=== PATIENT | female | born 1955 | race Caucasian/White ===

== ENCOUNTER 2020-03-07 06:46 | Outpatient (NON) | payer MEDICARE, MEDICAID, SELFPAY ==
[2020-03-07 23:07] LABS: SARS-CoV-2 RNA PCR Positive
== END 2020-03-07 06:47 ==
PROVIDERS: Visit Provider Physician Assistant
DX: U07.1 COVID-19 (principal)
CPT/HCPCS: 87635; C9803; U0003

== ENCOUNTER 2020-03-13 16:27 | Inpatient (IN) | payer MEDICARE, MEDICAID, SELFPAY ==
--- NOTE | ~2020-03-13 | XR_ITS ---
EXAMINATION: XR chest 1V portable EXAM DATE: 03/22/2020 06:29 INDICATION: Respiratory failure. TECHNIQUE: Portable AP frontal chest x-ray was obtained. Comparison is made to prior examination from 03/21, 03/20, 03/19. FINDINGS: There is a right-sided PICC line with tip projecting over the cavoatrial junction. Endotrac heal tube tip is 2-3 centimeters above the terrance (ideal range is between 2 to 5 cm). There is a dolores ogastric tube seen with tip collimated off the study, but below the left hemidiaphragm. Patchy bilateral ill-defined acute airspace disease, with some confluence in the retrocardiac region. There are no sizable pleural effusions. There is no pneumothorax suspected. Cardiomediastinal s ilhouette is normal. The bones and soft tissues are unremarkable. Previously seen PICC line tenting cephalad has resolved, otherwise there is no significant interval change. IMPRESSION: 1. Line, tubes in position. 2. Bilateral acute edema or infection. Reviewed, dictated and finalized at location A.
--- NOTE | ~2020-03-13 | XR_ITS ---
EXAMINATION: XR chest 1V portable DATE: 03/14/2020 07:09 INDICATION: COVID-19 pneumonia. TECHNIQUE: A single frontal view of the chest was obtained. COMPARISON: Chest single view 03/13/2020, CT abdomen and pelvis 03/24/2019 FINDINGS: There are patchy airspace opacities in all lung zones bilaterally. No pleural effusion or p neumothorax. The heart size is normal. Surgical clips in the right upper quadrant are likely from cho lecystectomy. IMPRESSION: 1. Worsened diffuse lung disease, consistent with pneumonia. Reviewed, dictated and finalized at location A.
--- NOTE | ~2020-03-13 | XR_ITS ---
EXAMINATION: XR chest 1V portable DATE: 03/17/2020 06:05 INDICATION: Respiratory failure. COVID-19 pneumonia. TECHNIQUE: A single frontal view of the chest was obtained. COMPARISON: Chest single view 03/16/2020 FINDINGS: There are interstitial and airspace opacities throughout the lungs bilaterally. No pleural effusion or pneumothorax. The heart size is normal. The endotracheal tube tip is 3.1 cm above the car sebastian. The nasogastric tube tip is in the stomach. Surgical clips in the right upper quadrant are likel y from cholecystectomy. IMPRESSION: 1. Stable diffuse lung disease, consistent with pneumonia versus acute respiratory distress syndrome (ARDS). Reviewed, dictated and finalized at location A. IMPRESSION: 1. Stable diffuse lung disease, consistent with pneumonia versus acute respirat ory distress syndrome (ARDS).
--- NOTE | ~2020-03-13 | XR_ITS ---
EXAMINATION: XR chest 1V portable EXAM DATE: 03/20/2020 05:27 INDICATION: Respiratory failure. TECHNIQUE: Portable AP frontal chest x-ray was obtained. Comparison is made to prior examination from 03/19/2020. FINDINGS: Endotracheal tube tip is 2-3 centimeters above the terrance (ideal range is between 2 to 5 cm ). There is a nasogastric tube seen with tip collimated off the study, but below the left hemidiaphr agm. There is a right-sided PICC line in position. Patchy bilateral ill-defined acute airspace disease. There are no sizable pleural effusions. There is no pneumothorax suspected. Cardiomediastinal silhouette is normal. The bones and soft tissues are unremarkable. Amount of right ankle opacification appears improved compared to yesterday, could b e partly technical from better inspiration on this exam. IMPRESSION: 1. Line(s) and tube(s) in position. 2. Bilateral acute edema or infection. Reviewed, dictated and finalized at location B.
--- NOTE | ~2020-03-13 | XR_ITS ---
EXAMINATION: XR chest 1V portable INDICATION: Respiratory failure TECHNIQUE: Portable AP chest at 0536 hours COMPARISON: 03/17/2020 FINDINGS: The endotracheal tube ends approximately 3.0 cm above the terrance. The nasogastric tube is f ollowed as far as the stomach. Its tip is beyond the inferior margin of the radiograph. Diffuse bilat eral interstitial and airspace opacities persist with slight worsening in the right upper lung zone. There is no pleural effusion or pneumothorax. The cardiomediastinal silhouette is normal. Surgical cl ips in the right upper quadrant are likely from prior cholecystectomy. IMPRESSION: 1. Diffuse lung disease with slight worsening in the right upper lung zone, consistent with pneumonia and/or pulmonary edema and/or acute respiratory distress syndrome (ARDS). Reviewed, dictated and finalized at location A. IMPRESSION: 1. Diffuse lung disease with slight worsening in the right upper lung zone, con sistent with pneumonia and/or pulmonary edema and/or acute respiratory distress syndrome (ARDS).
--- NOTE | ~2020-03-13 | XR_ITS ---
EXAMINATION: XR chest 1V portable EXAM DATE: 03/21/2020 06:01 INDICATION: Respiratory failure. TECHNIQUE: Portable AP frontal chest x-ray was obtained. Comparison is made to prior examination from 03/20/2020, 03/19. FINDINGS: Compared to yesterday, the right-sided PICC line has tented up into the internal jugular ve in, with tip retracting above the level of the terrance. Endotracheal tube tip is 2-3 centimeters above the terrance (ideal range is between 2 to 5 cm). There is a nasogastric tube seen with tip collimated off the study, but below the left hemidiaphragm. Patchy bilateral ill-defined acute airspace disease. There are no sizable pleural effusions. There is no pneumothorax suspected. Cardiomediastinal silhouette is normal. The bones and soft tissues are unremarkable. Amount of parenchymal opacification appears improved compared to last couple of day s. IMPRESSION: 1. Right PICC line tenting cephalad with tip oriented in down the SVC but retracted to above level o f terrance. Consider vascular access consult, evaluation. 2. Bilateral acute edema or infection. Reviewed, dictated and finalized at location A. IMPRESSION: 1. Right PICC line tenting cephalad with tip oriented in down the SVC but retr acted to above level of terrance. Consider vascular access consult, evaluation. 2. Bilateral acute edema or infection.
--- NOTE | ~2020-03-13 | XR_ITS ---
EXAMINATION: XR chest ET placement, XR abdomen NG/feed tube insert DATE: 03/15/2020 18:47 INDICATION: Intubation and orogastric tube placement TECHNIQUE: 1. frontal view of the chest was obtained. 2. Semierect AP view of the abdomen was obtained. COMPARISON: Chest radiograph dated 03/15/2020 at 5:34 AM FINDINGS: Endotracheal tube tip 1.8 cm above the terrance. Orogastric tube with proximal side-port in the body of the stomach and distal tip collimated beyond the inferior margin of the [id number]. No significant interval change accounting for differences in technique in patchy airspace opacities t hroughout both lungs. No pleural effusion or pneumothorax. The cardiomediastinal silhouette is normal . Cholecystectomy clips in the right upper quadrant. IMPRESSION: 1. Endotracheal tube and orogastric tube in expected positions. 2. Diffuse bilateral lung disease without significant interval change consistent with pneumonia. Reviewed, dictated and finalized at location A. IMPRESSION: 1. Endotracheal tube and orogastric tube in expected positions. 2. Diffuse bilateral lung disease without significant interval change consisten t with pneumonia.
--- NOTE | ~2020-03-13 | XR_ITS ---
EXAMINATION: XR chest 1V portable INDICATION: Pneumonia, shortness of breath TECHNIQUE: Portable AP chest at 0536 hours COMPARISON: 03/30/2020 FINDINGS: Diffuse patchy airspace opacities persist with slight improvement in the left lung base. Th ere is no pleural effusion or pneumothorax. The cardiomediastinal silhouette is normal. A right upper extremity PICC ends with its tip at the superior cavoatrial junction. IMPRESSION: 1. Diffuse lung disease with improvement in the left lung base, consistent with pneumonia and/or pulm onary edema and/or acute respiratory distress syndrome (ARDS). Reviewed, dictated and finalized at location A. IMPRESSION: 1. Diffuse lung disease with improvement in the left lung base, consistent with pneumonia and/or pulmonary edema and/or acute respiratory distress syndrome (A RDS).
--- NOTE | ~2020-03-13 | XR_ITS ---
EXAMINATION: XR chest 1V portable INDICATION: Respiratory failure TECHNIQUE: Portable AP chest at 0537 hours COMPARISON: 03/18/2020 FINDINGS: The endotracheal tube ends approximately 2.9 cm above the terrance. The nasogastric tube is f ollowed as far as the stomach. Its tip is beyond the inferior margin of the radiograph. A right upper extremity PICC partially coils in the right internal jugular vein and now ends with its tip in the p roximal superior vena cava. Patchy bilateral interstitial and airspace opacities are stable. There is no pleural effusion or pneumothorax. The cardiomediastinal silhouette is stable. Surgical clips in t he right upper quadrant are likely from prior cholecystectomy. IMPRESSION: 1. Stable diffuse lung disease, consistent with pneumonia and/or pulmonary edema and/or acute respira tory distress syndrome (ARDS). 2. Right upper extremity PICC partially coiling in the the right internal jugular vein and ending wit h its tip in the proximal superior vena cava. Reviewed, dictated and finalized at location A. IMPRESSION: 1. Stable diffuse lung disease, consistent with pneumonia and/or pulmonary kathy a and/or acute respiratory distress syndrome (ARDS). 2. Right upper extremity PICC partially coiling in the the right internal jugul ar vein and ending with its tip in the proximal superior vena cava.
--- NOTE | ~2020-03-13 | XR_ITS ---
EXAMINATION: XR chest PICC line INDICATION: PICC insertion TECHNIQUE: Portable AP chest at 1333 hours COMPARISON: 0536 hours FINDINGS: A right upper extremity PICC has been inserted which ends with its tip at the superior cavo atrial junction. The endotracheal tube is approximately 2.8 cm above the terrance. The nasogastric tube is followed as far as the stomach. Its tip is beyond the inferior margin of the radiograph. Patchy b ilateral interstitial and airspace opacities persist without significant change. There is no pleural effusion or pneumothorax. The cardiomediastinal silhouette is stable. IMPRESSION: 1. Right upper extremity PICC insertion ending at the superior cavoatrial junction. 2. Stable diffuse lung disease, consistent with pneumonia and/or pulmonary edema and/or acute respira tory distress syndrome (ARDS). Reviewed, dictated and finalized at location A. IMPRESSION: 1. Right upper extremity PICC insertion ending at the superior cavoatrial junct ion. 2. Stable diffuse lung disease, consistent with pneumonia and/or pulmonary kathy a and/or acute respiratory distress syndrome (ARDS).
--- NOTE | ~2020-03-13 | XR_ITS ---
EXAMINATION: XR chest 1V portable DATE: 03/22/2020 09:12 INDICATION: COVID 19 infection. Acute respiratory failure and shortness of breath. TECHNIQUE: frontal view of the chest was obtained. COMPARISON: Chest radiograph dated 03/22/2020 at 5:32 AM FINDINGS: Endotracheal tube tip 2.5 cm above the terrance. Nasogastric tube with proximal side-port in the body of the stomach and with distal tip collimated off the study. Right upper extremity peripherally inser noble central venous catheter (PICC) has changed position, now extending cephalad along the right inter nal jugular vein with distal tip collimated beyond the cephalad margin of the [id number]. Improved aeration at the left lung base. Persistent bilateral patchy airspace disease consistent with multifocal pneumonia. No pleural effusion or pneumothorax. The cardiomediastinal silhouette is deshawn l. Cholecystectomy clips in the right upper quadrant. IMPRESSION: 1. Right upper extremity PICC line has changed position, now extending into the right internal jugula r vein with distal tip collimated beyond the cephalad margin of the [id number]. 2. Bilateral patchy airspace opacities throughout both lungs consistent with multifocal pneumonia wit h improved aeration at the left lung base. Reviewed, dictated and finalized at location A. IMPRESSION: 1. Right upper extremity PICC line has changed position, now extending into the right internal jugular vein with distal tip collimated beyond the cephalad mar gin of the [id number]. 2. Bilateral patchy airspace opacities throughout both lungs consistent with mu ltifocal pneumonia with improved aeration at the left lung base.
--- NOTE | ~2020-03-13 | XR_ITS ---
EXAMINATION: XR chest 1V portable EXAM DATE: 03/24/2020 08:04 INDICATION: Respiratory failure. COVID 19 pneumonia. TECHNIQUE: Portable AP frontal chest x-ray was obtained. Comparison is made to prior examination from 03/23. FINDINGS: There is a right-sided PICC line with tip projecting over the cavoatrial junction. Endotrac heal tube tip is 2 centimeters above the terrance (ideal range is between 2 to 5 cm). There is a nasog astric tube seen with tip collimated off the study, but below the left hemidiaphragm. Patchy bilateral ill-defined acute airspace disease. There are no sizable pleural effusions. There is no pneumothorax suspected. Cardiomediastinal silhouette is normal. The bones and soft tissues are unremarkable. There is no significant interval change. IMPRESSION: 1. Line, tubes in position. 2. Bilateral acute edema or infection. Reviewed, dictated and finalized at location A.
--- NOTE | ~2020-03-13 | XR_ITS ---
EXAMINATION: XR chest 1V portable EXAM DATE: XR chest 1V portable EXAM DATE: 03/23/2020 05:45 INDICATION: Respiratory failure. TECHNIQUE: Portable AP frontal chest x-ray was obtained. Comparison is made to prior examination from 03/21, 03/22 FINDINGS: Endotracheal tube tip is 2 centimeters above the terrance (ideal range is between 2 to 5 cm). There is a nasogastric tube seen with tip collimated off the study, but below the left hemidiaphrag m. Patchy bilateral ill-defined acute airspace disease, with some confluence in the retrocardiac region. There are no sizable pleural effusions. There is no pneumothorax suspected. Cardiomediastinal s ilhouette is normal. The bones and soft tissues are unremarkable. Previously seen PICC line has been removed, otherwise no appreciable interval change. IMPRESSION: 1. Line, tubes in position. 2. Bilateral acute edema or infection. Reviewed, dictated and finalized at location A.
--- NOTE | ~2020-03-13 | XR_ITS ---
EXAMINATION: XR chest 1V portable DATE: 03/16/2020 06:35 INDICATION: Respiratory failure. COVID-19 pneumonia. TECHNIQUE: A single frontal view of the chest was obtained. COMPARISON: Chest single view 03/15/2020 FINDINGS: There are patchy airspace opacities involving all lung zones bilaterally. No pleural effusi on or pneumothorax. The heart size is normal. The endotracheal tube tip is 2.4 cm above the terrance. T he nasogastric tube tip is beyond the inferior margin of the radiograph, but at least to the stomach. Surgical clips in the right upper quadrant are likely from cholecystectomy. IMPRESSION: 1. Worsened diffuse lung disease, consistent with pneumonia. Reviewed, dictated and finalized at location A.
--- NOTE | ~2020-03-13 | XR_ITS ---
EXAMINATION: XR chest 1V portable DATE: 03/30/2020 11:08 INDICATION: Acute respiratory failure. COVID-19 pneumonia. TECHNIQUE: A single frontal view of the chest was obtained. COMPARISON: Chest single view 03/25/2020, CT abdomen and pelvis 03/24/2019 FINDINGS: There are patchy airspace opacities involving all lung zones bilaterally. No pleural effusi on or pneumothorax. The heart size is normal. A right upper extremity peripherally inserted central v enous catheter (PICC) is seen with tip at the superior cavoatrial junction. IMPRESSION: 1. Diffuse lung disease with mild improvement, consistent with pneumonia versus acute respiratory dis tress syndrome (ARDS). Reviewed, dictated and finalized at location A. IMPRESSION: 1. Diffuse lung disease with mild improvement, consistent with pneumonia versus acute respiratory distress syndrome (ARDS).
--- NOTE | ~2020-03-13 | CT_ITS ---
EXAMINATION: CT brain wo con DATE: 03/19/2020 14:58 INDICATION: Encephalopathy TECHNIQUE: Computed tomography (CT) of the head was performed without intravenous contrast. Sagittal and coronal reconstructions were performed. The mA was adjusted according to patient size. Iterative reconstruction technique was employed. The dose-length product was 605.33 mGy-cm. COMPARISON: None FINDINGS: No acute intracranial hemorrhage, acute infarction or abnormal extra axial fluid collection. There is mild scattered white matter hypoattenuation consistent with chronic small vessel ischemic disease. S ymmetric prominence of the sulci and ventricles consistent with mild age-appropriate diffuse cerebral volume loss. Ventricles are normal and symmetric. No mass/mass effect. Endotracheal and orogastric tubes extend into the pharynx. Mild mucosal thickening the bilateral ethmoid sinuses. Trace bilateral mastoid effusions. The orbits are normal. IMPRESSION: 1. No acute intracranial process. 2. Age-related changes including mild diffuse lung loss and mild scattered white matter hypoattenuati on consistent with chronic small vessel ischemic disease. Reviewed, dictated and finalized at location A. IMPRESSION: 1. No acute intracranial process. 2. Age-related changes including mild diffuse lung loss and mild scattered whit e matter hypoattenuation consistent with chronic small vessel ischemic disease.
--- NOTE | ~2020-03-13 | US_ITS ---
EXAMINATION: US venous doppler [facility] DATE: 03/22/2020 10:41 INDICATION: Acute respiratory failure. TECHNIQUE: Grayscale ultrasound images without and with compression and Doppler ultrasound images of the bilateral lower extremity veins were obtained. COMPARISON: None. FINDINGS: The visualized portions of right common femoral vein, profunda (deep) femoral vein, femoral vein, pop liteal vein, peroneal veins, posterior tibial veins, and greater saphenous vein outflow are patent. The visualized portions of left common femoral vein, profunda femoral vein, femoral vein, popliteal v ein, peroneal veins, posterior tibial veins, and greater saphenous vein outflow are patent. IMPRESSION: 1. No deep venous thrombosis. Reviewed, dictated and finalized at location B.
--- NOTE | ~2020-03-13 | XR_ITS ---
EXAMINATION: XR chest 1V portable EXAM DATE: 03/16/2020 16:30 INDICATION: Decreasing saturation. TECHNIQUE: Portable AP frontal chest x-ray was obtained. Comparison is made to prior examination from 03/16/2020. FINDINGS: Endotracheal tube tip is 3 centimeters above the terrance (ideal range is between 2 to 5 cm). Feeding tube tip is adequately positioned. Again there is moderate amount of right-sided, smaller a mount of left-sided airspace disease. There is no pneumothorax suspected. There are no pleural effusi ons. Cardiomediastinal silhouette is normal. There are no osseous abnormalities identified. Accountin g for differences in technique, there is no significant interval change. IMPRESSION: Tubes in position. Moderate right, smaller left acute airspace disease. Reviewed, dictated and finalized at location B. IMPRESSION: Tubes in position. Moderate right, smaller left acute airspace dise ase.
--- NOTE | ~2020-03-13 | XR_ITS ---
EXAMINATION: XR chest 1V portable INDICATION: Shortness of breath, fever, dry cough TECHNIQUE: Portable AP chest at 1708 hours COMPARISON: 10/02/2016 FINDINGS: There are patchy bilateral airspace opacities. No pleural effusion or pneumothorax is ident ified. The cardiomediastinal silhouette is normal. Cholecystectomy clips are noted in the right upper quadrant. IMPRESSION: 1. Patchy bilateral airspace opacities, consistent with atelectasis versus pneumonia. Reviewed, dictated and finalized at location A. IMPRESSION: 1. Patchy bilateral airspace opacities, consistent with atelectasis versus pneu monia.
--- NOTE | ~2020-03-13 | XR_ITS ---
EXAMINATION: XR chest 1V portable DATE: 03/25/2020 06:44 INDICATION: COVID 19 pneumonia TECHNIQUE: frontal view of the chest was obtained. COMPARISON: Chest radiograph dated 03/24/20 FINDINGS: Endotracheal tube tip 1.9 cm above the terrance. Right upper extremity peripherally inserted central ve nous catheter (PICC) tip at the superior vena cava. Nasogastric tube extends below the left hemidia phragm with distal tip collimated off the study. No significant interval change in patchy bilateral airspace opacities. Small left pleural effusion. N o pneumothorax. The cardiomediastinal silhouette is normal. Cholecystectomy clips in the right upper quadrant. IMPRESSION: 1. Patchy bilateral lung disease consistent with multifocal pneumonia and/or pulmonary edema. 2. Small left pleural effusion. Reviewed, dictated and finalized at location A. IMPRESSION: 1. Patchy bilateral lung disease consistent with multifocal pneumonia and/or pu lmonary edema. 2. Small left pleural effusion.
--- NOTE | ~2020-03-13 | XR_ITS ---
EXAMINATION: XR chest 1V portable DATE: 03/15/2020 06:13 INDICATION: COVID-19 pneumonia. TECHNIQUE: A single frontal view of the chest was obtained. COMPARISON: Chest single view 03/14/2020 FINDINGS: There are patchy airspace opacities in all lung zones bilaterally. No pleural effusion or p neumothorax. The heart size is normal. Surgical clips in the right upper quadrant are likely from cho lecystectomy. IMPRESSION: 1. Diffuse lung disease with worsening on the left and improvement in right lower lung zone, consiste nt with pneumonia. Reviewed, dictated and finalized at location A. IMPRESSION: 1. Diffuse lung disease with worsening on the left and improvement in right low er lung zone, consistent with pneumonia.
[2020-03-13 16:33] VITALS: BP 132/78; PULSE 103; RESP 20; TEMP 36.7; O2SAT 90
[2020-03-13 16:40] VITALS: O2SAT 70
--- NOTE | 2020-03-13 16:45 | ECG_ITS ---
Measurements Intervals [place] Rate: 101 P: 14 MI: 137 QRS: 54 QRSD: 83 T: 19 QT: 337 QTc: 438 Interpretive Statements SINUS TACHYCARDIA INCOMPLETE RIGHT BUNDLE BRANCH BLOCK NONSPECIFIC ST & T-WAVE ABNORMALITY- INFERIOR LEADS BASELINE ARTIFACT- I, II, III, AVR, AVF, V3-V5 BORDERLINE ECG Electronically Signed On 03-13-2020 17:21:01 CDT by Nicko Lake D.O.
--- NOTE | 2020-03-13 16:49 | ED.GENADULT ---
HPI - General Adult General Chief complaint: Shortness of Breath/Dyspnea Stated complaint: SOB, COVID Time Seen by Provider: 03/13/20 16:29 Source: patient History of Present Illness HPI narrative: Patient is a 64 y/o female complaining of moderate SOB for several days. There is no alleviating or exacerbating factor. She has been sick with bodyache, fever, weakness for several days and she tested positive for COVID on 03/07. She states that her symptoms have been worse last few days. She feels very weak and cannot walk. She states that her fever has been upto 104 a few days ago, but has no fever today. Of note, nurse reports that sat was 60s to 70s on RA while in triage. She was placed on 6L O2 via NC. Related Data Home Medications Medication Instructions Recorded Confirmed cholecalciferol (vitamin D3) 50 2,000 unit PO DAILY 08/25/19 mcg (2,000 unit) tablet dalfampridine 10 mg 10 mg PO DAILY tablet 08/25/19 tablet,extended release,12 hr levothyroxine 100 mcg tablet 100 mcg PO DAILY 08/25/19 solifenacin 5 mg tablet 5 mg PO DAILY 08/25/19 Allergies Allergy/AdvReac Type Severity Reaction Status Date / Time Sulfa (Sulfonamide Allergy Unknown possible Verified 12/08/19 14:02 Antibiotics) reaction?? Review of Systems Constitutional: Constitutional: Reports body ache(s), Reports chills, Reports fever(s), Denies headache(s), Reports malaise and Reports weakness Eyes: Eyes: Denies blurry vision ENT: Denies headache(s) and Denies neck pain Cardiovascular: Cardiovascular: Denies chest pain and Reports dyspnea Respiratory: Respiratory: Reports dyspnea Gastrointestinal: Gastrointestinal: Denies abdominal pain, Denies diarrhea, Denies nausea and Denies vomiting Genitourinary: Genitourinary: Denies hematuria and Denies dysuria Musculoskeletal: Musculoskeletal: Denies back pain and Denies neck pain Neurologic: Denies headache(s) and Reports weakness PMFSH Past Medical History Medical History COVID-19 Family History Family History Other Family history of multiple sclerosis Social History Social History Smoking status: Current every day smoker Alcohol intake: current Exam Const: General: no acute distress and well developed Orientation/consciousness: oriented to person, oriented to place, oriented to time and patient oriented x3 HENMT: Head: normocephalic Ears: external ears normal General nose exam: Normal external nose present Eyes: General: appearance normal, both eyes and all related structures Conjunctivae: conjunctivae normal Neck: Neck: normal visual inspection and full ROM Chest: Chest palpation & inspection: normal inspection of the chest and no tenderness Resp: Effort & Inspection: normal respiratory effort and able to speak in complete sentences Cardio: Rate: tachycardic Rhythm: regular rhythm GI: GI Palp: No abdominal tenderness and Yes Soft to palpation Skin: General skin exam: normal color and turgor normal Neuro: General: oriented to person, oriented to place, oriented to time and patient oriented x3 Cognition (Neuro): normal cognition Extrem: General: normal to inspection, full ROM and no pedal edema Psych: Appearance: grossly normal Mental Status: mental status grossly normal Affect: normal affect Course Consultations Consultation #1: Discussed with Dr. Bailey, who agrees to admit. Date: 03/13/20 Time: 19:40 Vital Signs Vital signs: Vital Signs Temperature 36.7 C 03/13/20 16:33 Pulse Rate 103 H 03/13/20 16:33 Respiratory Rate 20 03/13/20 16:33 Blood Pressure 132/78 03/13/20 16:33 Pulse Oximetry 90 03/13/20 16:33 Temperature 36.7 C 03/13/20 16:33 Pulse Rate 77 03/13/20 20:11 Respiratory Rate 18 03/13/20 20:11 Blood Pressure 112/78 03/13/20 20:11 Pulse Oximetry 98 08
[2020-03-13 17:02] LABS: Alveolar/Arterial O2 Gradient 218.2 mmHg; Base Excess ABG 2.1 mEq/l (+/-2.0); Fractional Inspired Oxygen 44 %; HCO3 ABG 25.3 mEq/l (22.0-26.0); Oxygen Saturation ABG 91.3 % (95.0-100.0); PCO2 ABG 34.8 mmHg (35.0-45.0); PO2 ABG 55.9 mmHg (80.0-100.0); PO2 FiO2 Ratio Arterial Blood 1.27 %; Total Hemoglobin 13.6 g/dL (12.0-18.0); pH ABG 7.479 (7.350-7.450)
[2020-03-13 17:03] LABS: Device NASAL CANNULA; Modified Allen's Test Pass; Site Drawn RIGHT RADIAL
[2020-03-13 17:27] LABS: Basophils Percent Auto 0.2 % (0.2-1.2); Hematocrit 43.8 % (37.0-47.0); Hemoglobin 14.4 g/dL (12.0-15.0); Immature Granulocyte Absolute 0.12 K/mm3 (0.00-0.031); Immature Granulocyte Percent A 1.1 % (0-0.5); Lymphocytes Absolute Auto 0.95 K/mm3 (0.9-3.2); Lymphocytes Percent Auto 8.6 % (18.3-44.2); Mean Corpuscular HGB Conc 32.9 g/dl (32-36); Mean Corpuscular Hemoglobin 29.9 pg (26-34); Mean Corpuscular Volume 90.9 fl (80-100); Mean Platelet Volume 10.3 fl (7.4-10.4); Monocytes Absolute Auto 0.5 K/mm3 (0.1-0.6); Monocytes Percent Auto 4.1 % (2.6-8.5); Neutrophils Absolute Auto 9.6 K/mm3 (1.3-6.7); Platelet Count Result 277 k/mm3 (150-375); Red Blood Count 4.82 M/mm3 (4.2-5.4); White Blood Count 11.1 K/mm3 (4.5-10.0)
[2020-03-13 17:42] LABS: Partial Thromboplastin Time 24.6 SECONDS (22.3-36.8); Prothrombin Time 13.1 Seconds (11.1-14.7)
[2020-03-13 17:44] LABS: Alanine Aminotransferase 51 U/L (4-35); Albumin Level 4.1 g/dL (3.5-5.1); Alkaline Phosphatase 72 U/L (38-126); Anion Gap 11 mmol/L (8-16); Aspartate Amino Transferase 109 U/L (14-36); Bilirubin,Total 0.4 mg/dL (0.2-1.3); Blood Urea Nitrogen 35 mg/dL (7-17); CRP 5.5 mg/dL (<1.0); Calcium 8.8 mg/dL (8.4-10.2); Carbon Dioxide 26 mmol/L (22-30); Chloride 104 mmol/L (98-107); Estimated CRCL calculation 52 ml/min; Estimated Glomerular Filt Rate > 60; Glucose 120 mg/dL (65-105); Potassium 3.7 mmol/L (3.4-5.0); Sodium 141 mmol/L (137-145)
[2020-03-13 17:51] LABS: Troponin I < 0.012 ng/mL (0.000-0.034)
--- NOTE | 2020-03-13 18:19 | PC.NURSE ---
was unable to draw blood cultures asked nurse
[2020-03-13 18:23] VITALS: BP 110/38; PULSE 82; RESP 20; O2SAT 95
--- NOTE | 2020-03-13 18:44 | PC.NURSE ---
left message with person listed on emergency contact list to pick patient up from er. no answer. patient unable to provide another contact to call for ride home
[2020-03-13 20:11] VITALS: BP 112/78; PULSE 77; RESP 18; O2SAT 98
[2020-03-13] MEDS: REMDESIVIR 200 MG/NS 250 ML 200 MG/250 ML BAG 250 MG IVPB (20:11)
[2020-03-13 20:29] LABS: Troponin I < 0.012 ng/mL (0.000-0.034)
[2020-03-13 20:58] VITALS: BP 125/56; PULSE 71; RESP 18; TEMP 36.7; O2SAT 90; BMI 26.3
--- NOTE | 2020-03-13 21:07 | ADMGEN ---
This patient, Raquel Harper, was admitted to 3 Med Surg Room 331-01. Patient/family oriented to hospital policies and general routines including ID bracelet, bed and alarms, visiting hours, pain management, procedures, bathroom and other care routines, personal items, smoking policy, room service/diet, and visiting hours. Valuables list has been completed. Information on how to activate the Rapid Response Team has been discussed. Patient/Family are encouraged to report perceived risks to care and to ask questions if they do not understand what they are told or what they should do.
[2020-03-13 23:23] LABS: Troponin I < 0.012 ng/mL (0.000-0.034)
--- NOTE | 2020-03-13 23:46 | PM.IMHP ---
H&P: HPI History of Present Illness Date/Time: 03/13/20 23:46 Chief complaint: acute respiratory failure/covid infection Narrative: aRquel Harper is a 64 year old female who has a history of MS. The patient's had back surgery recently and he was tested for COVID prior to his surgery but after surgery he started feeling ill and was coughing severely. He then tested positive for COVID. The patient felt very weak and she went and got tested she said her fever was maximum 104.0. On 03/04/2011 she was tested positive for COVID. The patient has MS and has been very weak. She said she has not taken any of her medications today. She has not been able to walk. Her oxygen his level is 60s 70s on room air. The patient was placed on 6 L initially but is down to 5 L per nasal cannula. Was read as incomplete right bundle branch block. Chest x-ray was read as patchy bilateral airspace opacities, consistent with atelectasis versus pneumonia. Patient was started on Decadron and from the severe. Patient was started on room does of year and Decadron. Assessment approximately 45 minutes with the patient. She was placed in isolation. Date of service 03/13/2020 Review of Systems Review of Systems: All systems reviewed & are unremarkable except as noted in HPI and below Constitutional: Constitutional: Reports as per HPI and Reports no additional constitutional complaints Eyes: Eyes: Reports as per HPI and Reports no additional eye complaints ENT: Reports system reviewed and no additional complaints, except as documented and Reports Normal hearing present Cardiovascular: Cardiovascular: Reports no additional cardiovascular complaints Respiratory: Respiratory: Reports no additional respiratory complaints and Reports no additional respiratory complaints Gastrointestinal: Gastrointestinal: Reports as per HPI and Reports no additional gastrointestinal complaints Musculoskeletal: Musculoskeletal: Reports no additional musculoskeletal complaints Integumentary/Breasts: Skin/Breast: Reports system reviewed and no additional complaints, except as docu and Reports as per HPI Neurologic: Reports system reviewed and no additional complaints, except as documented, Reports as per HPI and Reports Normal hearing present Psychiatric: Psychiatric: Reports no additional psychiatric complaints and Reports as per HPI Endocrine: Endocrine: Reports no additional endocrine complaints Hematologic/Lymphatic: Hematologic/Lymphatic: Reports no additional hematologic/lymphatic complaints Allergic/Immunologic: Allergic/Immunologic: Reports no additional allergic/immunologic complaints [facility] Past Medical History Medical History (Updated 03/14/20 @ 00:00 by Yessica Elder NP) COVID-19 Depression Encounter for removal of skin lesion Multiple sclerosis Overactive bladder Psoriasis Surgical History Surgical History (Updated 03/14/20 @ 00:00 by Yessica Elder NP) H/O partial thyroidectomy H/O: hysterectomy History of tonsillectomy Hx of cholecystectomy Family History Family History (Updated 03/14/20 @ 00:00 by Yessica Elder NP) Father Bladder cancer Other Family history of multiple sclerosis Social History Social History (Updated 03/14/20 @ 00:02 by Yessica Elder NP) Social History: Patient lives with her who is a durable power nut tapper for healthcare. The patient is a full code. She has 2 children. The patient used to smoke many years ago. No marijuana or street drugs. No alcohol. She is disabled. Smoking status: Former smoker Alcohol intake: never Substance use: never Gender identity (if verbalized by the patient): Female Sexual Orientation (if Verbalized by the Patient): Straight or Heterosexual Spiritual care concerns: No Meds Home Medications and Allergies Home Medications Medication Instructions Recorded Confirmed Type cholecalciferol (vitamin D3) 50 2,000 unit PO DAILY 08/25/19
[2020-03-14] VITALS (21 sets, daily range): BP systolic 109–129; BP diastolic 48–71; PULSE 59–85; RESP 16–29; TEMP 37.1–37.3; O2SAT 82–98
[2020-03-14] MEDS: LEVOTHYROXINE SODIUM 100 MCG TABLET PO (05:39)
[2020-03-14 06:07] LABS: Alveolar/Arterial O2 Gradient 341.8 mmHg; Base Excess ABG 2.3 mEq/l (+/-2.0); Fractional Inspired Oxygen 60 %; HCO3 ABG 25.4 mEq/l (22.0-26.0); Oxygen Content ABG 15.3 %vol (16.0-22.0); Oxygen Saturation ABG 87.5 % (95.0-100.0); Oxyhemoglobin 84.3 % THb (90.0-100.0); PCO2 ABG 34.2 mmHg (35.0-45.0); PO2 FiO2 Ratio Arterial Blood 0.81 %; Total Hemoglobin 12.9 g/dL (12.0-18.0); pH ABG 7.488 (7.350-7.450)
[2020-03-14 06:11] LABS: Device HIGH FLOW THERAPY; Modified Allen's Test Pass; PO2 ABG 48.4 mmHg (80.0-100.0); Site Drawn LEFT RADIAL
[2020-03-14 06:57] LABS: Alanine Aminotransferase 52 U/L (4-35)
--- NOTE | 2020-03-14 06:58 | PC.NURSE ---
Pt transferred to ICU 5 at this time. All personal belongings sent with patient. Report called to Cristal YO.
[2020-03-14 07:52] LABS: Estimated CRCL calculation 65 ml/min; Estimated Glomerular Filt Rate > 60
--- NOTE | 2020-03-14 08:37 | WPDCNINT ---
Assessment and Plan Assessment and plan (1) Acute respiratory failure with hypoxia: Code(s): J96.01 - Acute respiratory failure with hypoxia Status: Acute Assessment and Plan: acute respiratory failure likely secondary to COVID-19 pneumonia - worsening chest x-ray and ABGs this morning, patient transferred to the ICU for further management - currently on high-flow therapy, 90% FiO2 and 60 L flow rate - discussed with patient regarding intubation if necessary to which she is agreeable - may place 100% non-rebreather if O2 sats continue to drop (2) COVID-19 virus infection: Code(s): U07.1 - COVID-19 Status: Acute Assessment and Plan: patient was tested positive for COVID-19 on 03/07/2020 - has been started on dexamethasone and Remdesivir - patient will be a candidate for convalescent plasma, though no significant evidence is present at this time that it works (3) Multiple sclerosis: Code(s): G35 - Multiple sclerosis Status: Chronic Assessment and Plan: continue Dalfampridine, Modafinil (4) HTN (hypertension), benign: Code(s): I10 - Essential (primary) hypertension Status: Acute Assessment and Plan: Blood pressures stable (5) DVT prophylaxis: Code(s): Z29.9 - Encounter for prophylactic measures, unspecified Status: Acute Assessment and Plan: lovenox Additional Plan D/w pt and updated her with her condition and plan of care. Discussed with her regarding intubation if her condition worsen, she is agreeable. Code Status: Full Code Critical care time spent: 44 minutes Due to a high probability of clinically significant, life threatening deterioration, the patient required my highest level of preparedness to intervene emergently and I personally spent this critical care time directly and personally managing the patient. This critical care time included obtaining a history; examining the patient; pulse oximetry; ordering and review of studies; arranging urgent treatment with development of a management plan; evaluation of patient's response to treatment; frequent reassessment; and discussions with other providers. It was exclusive of separately billable procedures and treating other patients and teaching time. Please see Assessment and Plan section and the rest of the note for further information on patient assessment and treatment Lead Mason Tender Consult Note Consult date: 03/14/20 Time Seen: 07:04 Reason for consult: acute respiratory failure, COVID-19 19 pneumonia, fevers, generalized weakness HPI: Raquel Harper is a 64 year old female with past medical history of depression, multiple sclerosis, psoriasis, overactive bladder, history of partial thyroidectomy presented to the ED on 03/13/2020 with complains off worsening shortness of breath, fevers, increased weakness. Patient was tested positive for COVID-19 on 03/07/2020. Her respiratory symptoms have worsened for the last few days which prompted her to come to the ER. She was saturating 60s to 70s on room air in the ER and was placed on supplemental oxygen. Early this morning, patient's oxygen saturation decreased to the 80s and was placed on high-flow therapy and transferred to the ICU for further management. Patient seen and examined the ICU, denies any cough, fevers, nausea, vomiting at this time denies any change in taste or smell. Looks comfortable, currently on high-flow nasal therapy but 90% FiO2 and 60 L flow rate. O2 sats have been low 90s. Hemodynamically stable. Patient has been afebrile Review of Systems Review of Systems: All systems reviewed & are unremarkable except as noted in HPI and below PMFSH Past Medical History Medical History (Updated 03/14/20 @ 09:02 by Pilar Garcia MD) COVID-19 Depression Encounter for removal of skin lesion Multiple sclerosis Overactive bladder Psoriasis Surgical History Surgical History (Updated 03/14/20 @ 00:00 by Jermain
[2020-03-14 10:36] LABS: Basophils Percent Auto 0.2 % (0.2-1.2); Hematocrit 40.8 % (37.0-47.0); Hemoglobin 13.1 g/dL (12.0-15.0); Immature Granulocyte Absolute 0.11 K/mm3 (0.00-0.031); Immature Granulocyte Percent A 1.1 % (0-0.5); Lymphocytes Absolute Auto 0.73 K/mm3 (0.9-3.2); Lymphocytes Percent Auto 7.3 % (18.3-44.2); Mean Corpuscular HGB Conc 32.1 g/dl (32-36); Mean Corpuscular Hemoglobin 29.4 pg (26-34); Mean Corpuscular Volume 91.7 fl (80-100); Mean Platelet Volume 9.6 fl (7.4-10.4); Monocytes Absolute Auto 0.5 K/mm3 (0.1-0.6); Monocytes Percent Auto 4.8 % (2.6-8.5); Neutrophils Absolute Auto 8.7 K/mm3 (1.3-6.7); Neutrophils Percent Auto 86.6 % (45.5-73.1); Platelet Count Result 307 k/mm3 (150-375); Red Blood Count 4.45 M/mm3 (4.2-5.4); Red Cell Distribution Width 12.9 % (11.5-14.5)
[2020-03-14 10:44] LABS: D Dimer 1.25 ug/mL (<0.48)
[2020-03-14 10:48] LABS: Alanine Aminotransferase 57 U/L (4-35); Albumin Level 3.7 g/dL (3.5-5.1); Alkaline Phosphatase 71 U/L (38-126); Anion Gap 7 mmol/L (8-16); Aspartate Amino Transferase 87 U/L (14-36); Bilirubin,Total 0.2 mg/dL (0.2-1.3); Blood Urea Nitrogen 31 mg/dL (7-17); Calcium 8.6 mg/dL (8.4-10.2); Carbon Dioxide 29 mmol/L (22-30); Chloride 107 mmol/L (98-107); Estimated CRCL calculation 65 ml/min; Estimated Glomerular Filt Rate > 60; Glucose 103 mg/dL (65-105); Lactate Dehydrogenase 1430 U/L (313-618); Magnesium 2.3 mg/dL (1.6-2.3); Phosphorus 3.8 mg/dL (2.5-4.5); Sodium 143 mmol/L (137-145)
[2020-03-14 11:02] LABS: CRP 14.3 mg/dL (<1.0)
[2020-03-14] MEDS: CHOLECALCIFEROL 1,000 UNITS TABLET 2000 UNITS PO (11:44)
[2020-03-14] MEDS: SOLIFENACIN 5 MG TABLET PO (11:44)
[2020-03-14] MEDS: CITALOPRAM HYDROBROMIDE 20 MG TABLET 40 MG PO (11:44)
[2020-03-14] MEDS: TRIAMCINOLONE ACET 0.1% CREAM 15 GM TUBE 1 APPLIC TOPICAL ×4 (11:45→20:44)
[2020-03-14] MEDS: ENOXAPARIN 80 MG/0.8 ML SYRINGE 75 MG SUB-Q (11:45)
--- NOTE | 2020-03-14 12:41 | PM.IMPN ---
Progress Note: A&P Assessment and Plan (1) Acute respiratory failure with hypoxia: Code(s): J96.01 - Acute respiratory failure with hypoxia Status: Acute Assessment and Plan: Result of COVID-19 infection. Now in ICU on high-flow oxygen Due to worsening status earlier this morning with chest x-ray revealing worsening airspace opacities and worsening ABG. Appreciate input from team guide. Ventolin HFA as needed. Patient is full code and agreeable to intubation if necessary. Will continue to monitor closely. (2) COVID-19 virus infection: Code(s): U07.1 - COVID-19 Status: Acute Assessment and Plan: Positive COVID-19 testing on 03/07/2020. Known dexamethasone and room does severe. On high-flow oxygen as noted above. Will continue to monitor closely. Follow markers as needed. (3) Multiple sclerosis: Code(s): G35 - Multiple sclerosis Status: Chronic Assessment and Plan: We will continue dalfampridine and modafinil. Anticipate will need therapy once improved from respiratory standpoint. (4) HTN (hypertension), benign: Code(s): I10 - Essential (primary) hypertension Status: Acute Assessment and Plan: Blood pressure reviewed on 03/14/2020 and presently stable. Will continue to monitor. Not on medication at the present time. (5) Depression: Qualifiers: Depression Type: unspecified Qualified Code(s): F32.9 - Major depressive disorder, single episode, unspecified Code(s): F32.9 - Major depressive disorder, single episode, unspecified Status: Chronic Assessment and Plan: Mood presently stable. Will continue citalopram. (6) Hypothyroidism, unspecified: Qualifiers: Hypothyroidism type: unspecified Qualified Code(s): E03.9 - Hypothyroidism, unspecified Code(s): E03.9 - Hypothyroidism, unspecified Status: Chronic Assessment and Plan: Stable. Continue levothyroxine. (7) DVT prophylaxis: Code(s): Z29.9 - Encounter for prophylactic measures, unspecified Status: Acute Assessment and Plan: Lovenox. Time Spent With Patient Time with patient: 15 - 25 minutes Subjective Date/time seen: 03/14/20 12:41 Interval history: Date of Service: 03/14/2020. Admitted with acute respiratory failure, COVID-19 infection. Transferred to ICU earlier this morning due to increased respiratory difficulty. Feels a little better now. Difficult to take deep breath. No cough. No chest pain. No headache or dizziness. No abdominal pain. No nausea or vomiting. Review of Systems Constitutional: Constitutional: Denies chills and Denies fever(s) ENT: Denies nasal congestion and Denies nasal discharge Cardiovascular: Cardiovascular: Denies chest pain and Denies palpitations Respiratory: Respiratory: Denies cough Comments: Hard to take deep breath. Gastrointestinal: Gastrointestinal: Denies abdominal pain, Denies nausea and Denies vomiting Genitourinary: Genitourinary: Reports no additional female genitourinary complaints Musculoskeletal: Musculoskeletal: Reports no additional musculoskeletal complaints Integumentary/Breasts: Skin/Breast: Denies rash Neurologic: Denies headache(s) Psychiatric: Psychiatric: Denies confusion Exam Narrative: Exam Narrative: Awake and alert. Const: General: no acute distress HENMT: Mouth: Yes moist mucous membranes Other: High-flow oxygen in place. Neck: Neck: supple Lymphatic: lymphadenopathy not noted Resp: Auscultation: diminished lung sounds Other: Coarse breath sounds bilaterally. Cardio: Rate: regular rate Rhythm: regular rhythm GI: Inspection: non-distended GI Palp: Yes Soft to palpation and No Tenderness to palpation present (GI) Auscultation: normal bowel sounds Skin: General skin exam: normal color and no rashes or lesions noted Neuro: Cognition (Neuro): normal cognition Speech: normal speech Extrem: General: no ed
[2020-03-14] MEDS: SODIUM CHLORIDE 0.9% IV 1,000 ML 75 ML IV CONT (17:42)
[2020-03-14] MEDS: REMDESIVIR 100 MG/NS 250 ML 100 MG/250 ML BAG 250 MG IVPB (20:44)
[2020-03-15] VITALS (40 sets, daily range): BP systolic 60–157; BP diastolic 49–86; PULSE 57–102; RESP 17–92; TEMP 36.7–38.6; O2SAT 88–100
[2020-03-15 04:52] LABS: Basophils Percent Auto 0.3 % (0.2-1.2); Hematocrit 36.7 % (37.0-47.0); Hemoglobin 11.8 g/dL (12.0-15.0); Immature Granulocyte Absolute 0.12 K/mm3 (0.00-0.031); Immature Granulocyte Percent A 1.5 % (0-0.5); Lymphocytes Absolute Auto 0.69 K/mm3 (0.9-3.2); Lymphocytes Percent Auto 8.6 % (18.3-44.2); Mean Corpuscular HGB Conc 32.2 g/dl (32-36); Mean Corpuscular Hemoglobin 29.5 pg (26-34); Mean Corpuscular Volume 91.8 fl (80-100); Mean Platelet Volume 9.7 fl (7.4-10.4); Monocytes Absolute Auto 0.5 K/mm3 (0.1-0.6); Monocytes Percent Auto 5.8 % (2.6-8.5); Neutrophils Absolute Auto 6.7 K/mm3 (1.3-6.7); Neutrophils Percent Auto 83.8 % (45.5-73.1); Platelet Count Result 291 k/mm3 (150-375); Red Cell Distribution Width 12.9 % (11.5-14.5)
[2020-03-15 05:04] LABS: D Dimer 0.89 ug/mL (<0.48)
[2020-03-15 05:05] LABS: Lactic Acid 1.3 mmol/L (0.7-2.1)
[2020-03-15 05:12] LABS: Alanine Aminotransferase 43 U/L (4-35); Albumin Level 3.4 g/dL (3.5-5.1); Alkaline Phosphatase 58 U/L (38-126); Anion Gap 5 mmol/L (8-16); Aspartate Amino Transferase 65 U/L (14-36); Bilirubin,Total 0.2 mg/dL (0.2-1.3); Blood Urea Nitrogen 32 mg/dL (7-17); CRP 6.5 mg/dL (<1.0); Calcium 8.2 mg/dL (8.4-10.2); Carbon Dioxide 29 mmol/L (22-30); Chloride 109 mmol/L (98-107); Estimated CRCL calculation 75 ml/min; Estimated Glomerular Filt Rate > 60; Glucose 130 mg/dL (65-105); Lactate Dehydrogenase 1255 U/L (313-618); Magnesium 2.3 mg/dL (1.6-2.3); Phosphorus 3.4 mg/dL (2.5-4.5); Potassium 3.8 mmol/L (3.4-5.0); Sodium 143 mmol/L (137-145)
[2020-03-15 05:19] LABS: Alveolar/Arterial O2 Gradient 624.9 mmHg; Base Excess ABG 3.2 mEq/l (+/-2.0); Carboxyhemoglobin 0.2 % THb (0-2.0); Fractional Inspired Oxygen 100 %; HCO3 ABG 26.3 mEq/l (22.0-26.0); Methemoglobin ABG 0.2 %THb (0-1.5); Oxygen Content ABG 15.5 %vol (16.0-22.0); Oxygen Saturation ABG 90.2 % (95.0-100.0); Oxyhemoglobin 86.8 % THb (90.0-100.0); PCO2 ABG 35.1 mmHg (35.0-45.0); PO2 FiO2 Ratio Arterial Blood 0.53 %; Reduced Hemoglobin 12.8 %THb (0-5.0); Total Hemoglobin 12.7 g/dL (12.0-18.0); pH ABG 7.492 (7.350-7.450)
[2020-03-15 05:20] LABS: Device HIGH FLOW THERAPY; Modified Allen's Test Pass; Site Drawn LEFT RADIAL
--- NOTE | 2020-03-15 05:43 | PC.NURSE ---
Spoke with Dr. Bailey regarding blood gas and low o2 sat. Patient does not want to be intubated at this time, however in an event of an emergency she is agreeable to intubation. She states she will let us know if she feels like she is unable to catch her breath. Continue to monitor at this time.
--- NOTE | 2020-03-15 07:50 | WPDINTPN ---
Progress Note: A&P Assessment and Plan (1) Acute respiratory failure with hypoxia: Code(s): J96.01 - Acute respiratory failure with hypoxia Status: Acute Assessment and Plan: acute respiratory failure likely secondary to COVID-19 pneumonia - worsening chest x-ray and ABGs - currently on high-flow therapy, 90% FiO2 and 60 L flow rate Within non-rebreather mask - continue close monitoring. Patient may need BiPAP or intubation and invasive mechanical ventilation - discussed with patient regarding intubation if necessary to which she is agreeable but only as a last resort - p.r.n. bronchodilators - hold further IV fluids (2) COVID-19 virus infection: Code(s): U07.1 - COVID-19 Status: Acute Assessment and Plan: patient was tested positive for COVID-19 on 03/07/2020 - continue dexamethasone and Remdesivir - patient received 1 unit of convalescent plasma 03/14 - monitor inflammatory markers (3) Multiple sclerosis: Code(s): G35 - Multiple sclerosis Status: Chronic Assessment and Plan: continue Dalfampridine, Modafinil (4) HTN (hypertension), benign: Code(s): I10 - Essential (primary) hypertension Status: Acute Assessment and Plan: Blood pressures stable (5) DVT prophylaxis: Code(s): Z29.9 - Encounter for prophylactic measures, unspecified Status: Acute Assessment and Plan: patient is currently on subcutaneous Lovenox at 1 milligram/kg Q day. Additional Plan D/w pt and updated her with her condition and plan of care. Discussed with her regarding intubation if her condition worsen, she is agreeable. since patient is on steroids and and the coagulation I will add stress ulcer prophylaxis with Protonix Code Status: Full Code Critical care time spent: 30 minutes Due to a high probability of clinically significant, life threatening deterioration, the patient required my highest level of preparedness to intervene emergently and I personally spent this critical care time directly and personally managing the patient. This critical care time included obtaining a history; examining the patient; pulse oximetry; ordering and review of studies; arranging urgent treatment with development of a management plan; evaluation of patient's response to treatment; frequent reassessment; and discussions with other providers. It was exclusive of separately billable procedures and treating other patients and teaching time. Please see Assessment and Plan section and the rest of the note for further information on patient assessment and treatment Subjective Date/time seen: 03/15/20 0750 Overnight events reviewed Afebrile Continues to be on AirVo with 60 L flow and 90% FiO2 along with a non-rebreather mask overnight patient desaturated and intubation was considered but after repositioning patient's sats improved Vitals acceptable patient told me that her symptoms are unchanged from yesterday. she is short of breath and also complains of cough which is mostly dry. She denies any other complaints at this time. Patient denies fever, chest pain, nausea vomiting, abdominal pain, dysuria., diarrhea, headache or constipation. Patient unable to use bedpan. Nurses try multiple times to place [place] but were unable to. Review of Systems Review of Systems: All systems reviewed & are unremarkable except as noted in HPI and below ( Subjective) Exam Const: General: cooperative, no acute distress and awake HENMT: Mouth: Yes moist mucous membranes Eyes: Sclera: sclerae normal Pupils: Equal, round and reactive pupils present Neck: Neck: supple and no JVD Resp: Effort & Inspection: normal respiratory effort Other: coarse breath sounds bilaterally, good air entry Cardio: Rate: regular rate Rhythm: regular rhythm GI: Inspection: non-distended Auscultation: normal bowel sounds : Other: deferred Neuro: General: gait normal Cranial nerves: Ye
[2020-03-15] MEDS: SODIUM CHLORIDE 0.9% IV 1,000 ML 75 ML IV CONT (08:09)
[2020-03-15] MEDS: ENOXAPARIN 80 MG/0.8 ML SYRINGE 75 MG SUB-Q (08:11)
[2020-03-15] MEDS: TRIAMCINOLONE ACET 0.1% CREAM 15 GM TUBE 1 APPLIC TOPICAL ×2 (08:12→21:09)
--- NOTE | 2020-03-15 14:53 | PM.IMPN ---
Progress Note: A&P Assessment and Plan (1) Acute respiratory failure with hypoxia: Code(s): J96.01 - Acute respiratory failure with hypoxia Status: Acute Assessment and Plan: Result of COVID-19 infection. Now in ICU on high-flow oxygen Continue to watch respiratory status (2) COVID-19 virus infection: Code(s): U07.1 - COVID-19 Status: Acute Assessment and Plan: Positive COVID-19 testing on 03/07/2020. On iv fluids and remdesivir and steroids iv (3) Multiple sclerosis: Code(s): G35 - Multiple sclerosis Status: Chronic Assessment and Plan: We will continue dalfampridine and modafinil. (4) HTN (hypertension), benign: Code(s): I10 - Essential (primary) hypertension Status: Acute Assessment and Plan: Blood pressure is stable (5) Depression: Qualifiers: Depression Type: unspecified Qualified Code(s): F32.9 - Major depressive disorder, single episode, unspecified Code(s): F32.9 - Major depressive disorder, single episode, unspecified Status: Chronic Assessment and Plan: Mood presently stable. Will continue citalopram. (6) Hypothyroidism, unspecified: Qualifiers: Hypothyroidism type: unspecified Qualified Code(s): E03.9 - Hypothyroidism, unspecified Code(s): E03.9 - Hypothyroidism, unspecified Status: Chronic Assessment and Plan: Stable. Continue levothyroxine. (7) DVT prophylaxis: Code(s): Z29.9 - Encounter for prophylactic measures, unspecified Status: Acute Assessment and Plan: Lovenox. Subjective Date/time seen: 03/15/20 14:53 Interval history: Pt admitted with acute respiratory failure, COVID-19 infection. Pt is stable in ICU on high flow nasal cannulae and remdesivir. Review of Systems Review of Systems: All systems reviewed & are unremarkable except as noted in HPI and below Constitutional: Constitutional: Reports as per HPI, Reports no additional constitutional complaints, Denies chills, Denies fever(s) and Denies headache(s) Cardiovascular: Cardiovascular: Reports no additional cardiovascular complaints, Denies chest pain and Denies palpitations Respiratory: Respiratory: Reports no additional respiratory complaints, Reports no additional respiratory complaints and Denies cough Exam Const: General: Physically active and other (Pt is on high flow oxygen mild respiratory distress ) Orientation/consciousness: oriented to person Neuro: General: oriented to person, oriented to place, oriented to time, patient oriented x3, No confusion and Unable to assess gait Cranial nerves: Yes Equal, round and reactive pupils present and Yes hard of hearing Cognition (Neuro): normal cognition Speech: normal speech Gait exam (Neuro): Unable to assess gait Extrem: General: normal to inspection and no edema Right upper extremity: normal to inspection Left upper extremity: normal to inspection Right lower extremity: normal to inspection Left lower extremity: normal to inspection Psych: Appearance: grossly normal Mental Status: mental status grossly normal Speech and movement: Normal speech and movement present Affect: normal affect Attitude: cooperative Thought process: Normal thought process present Insight: Poor insight present (Psych) Judgement: Poor judgement present (Psych) Objective Data Vital Signs Vital Signs: Vital Signs - 24 hr 03/14/20 16:00 03/14/20 18:00 03/14/20 20:00 Temperature 37.2 C 37.1 C Pulse Rate 64 72 62 Respiratory Rate 29 H 21 H 27 H Blood Pressure 111/60 113/54 L 115/48 L Pulse Oximetry 94 98 93 03/14/20 20:06 03/14/20 20:23 03/14/20 20:52 Temperature 37.1 C 37.1 C 37.2 C Pulse Rate 66 73 66 Respiratory Rate 23 H 16 24 H Blood Pressure 115/48 L 112/59 L 116/71 Pulse Oximetry 93 92 93 03/14/20 21:43 03/14/20 22:00 03/14/20 22:32 Temperature Pulse Rate 62 59 L 63 Respiratory Rate 26 H 24 H Bl
--- NOTE | 2020-03-15 18:12 | WPDPROCEDUR ---
Procedures Intubation Intubation Date: 03/15/20 Intubation Time: 17:34 A pre-procedural Time-Out was completed immediately before starting the procedure and confirmed: Patient Identification, Site, Procedure, Patient Position and the Availability of Requisite Equipment: Yes Sedative: etomidate Mg given: 30 Paralytic: succinylcholine Mg given: 70 Laryngoscope: fiber optic video scope Assist device used: fiber optic device ET tube size: 7.5 (cuffed) Tube secured depth (cm): 23 Tube secured location: lips Tube placement confirmation: visualized tube passing through cords and equal breath sounds bilaterally Intubation complications: none Additional comments: patient tolerated well. o2 saturation remained over 96%. No complications
[2020-03-15 18:31] LABS: Alveolar/Arterial O2 Gradient 606.6 mmHg; Base Excess ABG 1.1 mEq/l (+/-2.0); Fractional Inspired Oxygen 100 %; HCO3 ABG 25.1 mEq/l (22.0-26.0); Oxygen Content ABG 16.9 %vol (16.0-22.0); Oxygen Saturation ABG 94.5 % (95.0-100.0); Oxyhemoglobin 92.1 % THb (90.0-100.0); PCO2 ABG 37.6 mmHg (35.0-45.0); PO2 ABG 68.8 mmHg (80.0-100.0); PO2 FiO2 Ratio Arterial Blood 0.69 %; pH ABG 7.442 (7.350-7.450)
[2020-03-15 18:32] LABS: Arterial Blood Gas PEEP 10 cmH2O; Arterial Blood Gas Vent Mode CMV; Arterial Blood Gas Ventilator rate 25 /MIN; Device VENTILATOR; Modified Allen's Test Pass; Site Drawn RIGHT RADIAL
[2020-03-15 18:33] LABS: Arterial Blood Gas Tidal Volume 400 ml
[2020-03-15] MEDS: REMDESIVIR 100 MG/NS 250 ML 100 MG/250 ML BAG 250 MG IVPB (18:50)
[2020-03-15] MEDS: NOREPINEPHRINE 8 MG/D5W 250 ML 8 MG/250 ML BAG 9.4 MG IV CONT (22:35)
--- NOTE | 2020-03-15 23:14 | WPDPROCEDUR ---
Procedures Central Line Placement Right Femoral: Central Line Date: 03/15/20 Central Line Time: 23:00 Discussed w/ the patient/family/POA,the placement of a central venous catheter, including its clinical necessity/indication & associated potential risks, benifits and alternatives.: Yes The patient/family/POA understand(s) and acknowledge(s) the need to proceed with central venous catheter insertion as an important element of the patient's clinical management.: Yes Performed Emergently - Given emergent patient condition, temporal constraints may have precluded informed consent.: Yes Consent: maximum sterile barrier used. steril lubrication Time Out Performed: Yes Provider Prep: mask, sterile gown, sterile gloves and Max. sterile barrier precautions Filipino: 7 Length (cm): 16 Depth of Insertion (cm): 15 Post procedure: sutured in place, good blood return, all ports aspirated, flushed, capped, tegaderm, hemostatic disc and antimicrobial disc Patient tolerated procedure: well and no complications (her hr dropped down to 30 just prior to central line sutured. central line started to pull out alightly and then was pushed back in and all lines had blood return and flushed well ) Additional comments: max sterile precautions. I used a capr so i did not wear sterile mask or cap as i had the capr on for procure due to patient being covid positive.
[2020-03-16] VITALS (47 sets, daily range): BP systolic 95–149; BP diastolic 40–85; PULSE 44–94; RESP 17–30; TEMP 35.2–38.6; O2SAT 90–100; BMI 26.3
[2020-03-16 05:06] LABS: Alveolar/Arterial O2 Gradient 567.6 mmHg; Base Excess ABG -3.6 mEq/l (+/-2.0); Carboxyhemoglobin 0.3 % THb (0-2.0); Fractional Inspired Oxygen 100 %; Methemoglobin ABG 0.3 %THb (0-1.5); Oxygen Content ABG 18.6 %vol (16.0-22.0); Oxygen Saturation ABG 97.4 % (95.0-100.0); PCO2 ABG 41.9 mmHg (35.0-45.0); PO2 ABG 103.5 mmHg (80.0-100.0); PO2 FiO2 Ratio Arterial Blood 1.03 %; Reduced Hemoglobin 3.4 %THb (0-5.0); Total Hemoglobin 13.7 g/dL (12.0-18.0); pH ABG 7.339 (7.350-7.450)
[2020-03-16 05:07] LABS: Device VENTILATOR; Modified Allen's Test Unable to perform; Site Drawn RIGHT RADIAL
[2020-03-16 05:08] LABS: Arterial Blood Gas PEEP 10 cmH2O; Arterial Blood Gas Tidal Volume 380 ml; Arterial Blood Gas Vent Mode CMV; Arterial Blood Gas Ventilator rate 25 /MIN
[2020-03-16] MEDS: NOREPINEPHRINE 8 MG/D5W 250 ML 8 MG/250 ML BAG 31.9 MG IV CONT (05:15)
[2020-03-16 05:31] LABS: Hematocrit 39.3 % (37.0-47.0); Hemoglobin 12.5 g/dL (12.0-15.0); Mean Corpuscular HGB Conc 31.8 g/dl (32-36); Mean Corpuscular Hemoglobin 29.8 pg (26-34); Mean Corpuscular Volume 93.6 fl (80-100); Mean Platelet Volume 9.4 fl (7.4-10.4); Platelet Count Result 491 k/mm3 (150-375); Red Cell Distribution Width 13.1 % (11.5-14.5)
[2020-03-16 05:48] LABS: Alanine Aminotransferase 36 U/L (4-35); Alkaline Phosphatase 68 U/L (38-126); Anion Gap 8 mmol/L (8-16); Aspartate Amino Transferase 54 U/L (14-36); Bilirubin,Total 0.5 mg/dL (0.2-1.3); Blood Urea Nitrogen 24 mg/dL (7-17); Calcium 7.8 mg/dL (8.4-10.2); Carbon Dioxide 26 mmol/L (22-30); Chloride 108 mmol/L (98-107); Estimated CRCL calculation 52 ml/min; Estimated Glomerular Filt Rate > 60; Glucose 203 mg/dL (65-105); Potassium 3.1 mmol/L (3.4-5.0); Sodium 142 mmol/L (137-145)
[2020-03-16 05:52] LABS: Alanine Aminotransferase 35 U/L (4-35); Lactate Dehydrogenase 1267 U/L (313-618)
[2020-03-16 06:00] LABS: D Dimer 2.05 ug/mL (<0.48)
[2020-03-16] MEDS: LEVOTHYROXINE SODIUM 100 MCG TABLET PO (06:11)
[2020-03-16] MEDS: SOLIFENACIN 5 MG TABLET PO (09:19)
[2020-03-16] MEDS: CITALOPRAM HYDROBROMIDE 20 MG TABLET 40 MG PO (09:19)
[2020-03-16] MEDS: CHOLECALCIFEROL 1,000 UNITS TABLET 2000 UNITS PO (09:20)
[2020-03-16] MEDS: PANTOPRAZOLE SODIUM IV 40 MG VIAL IV PUSH (09:20)
[2020-03-16] MEDS: ENOXAPARIN 80 MG/0.8 ML SYRINGE 75 MG SUB-Q (09:20)
[2020-03-16] MEDS: TRIAMCINOLONE ACET 0.1% CREAM 15 GM TUBE 1 APPLIC TOPICAL ×4 (09:22→21:10)
--- NOTE | 2020-03-16 10:48 | PCDIET ---
MD order for Vital 1.5. Recommend goal rate of 40mL/hr x 22 hours/day with Pro-Stat flush BID for 1520kcal, 89g protein and 672mL free water. Recommend 30mL water flush every 4 hours.
--- NOTE | 2020-03-16 14:08 | WPDINTPN ---
Progress Note: A&P Assessment and Plan (1) Acute respiratory failure with hypoxia: Code(s): J96.01 - Acute respiratory failure with hypoxia Status: Acute Assessment and Plan: acute respiratory failure likely secondary to COVID-19 pneumonia - worsening chest x-ray and ABGs - patient was intubated last night due to worsening hypoxia and respiratory distress Continue full mechanical ventilation support to prevent hypoxemia/hypercarbia and end organ damage. ABG and PCXR reviewed and will repeat in am. Tidal volume decreased with 380. Peep is at 10. FiO2 weaned down to 65% continue to wean FiO2 as possible Bronchodilators (2) Shock: Code(s): R57.9 - Shock, unspecified Status: Acute Assessment and Plan: patient was given small fluid boluses last night during intubation. Continue Levophed titration. patient is on Decadron conservative IV fluids (3) COVID-19 virus infection: Code(s): U07.1 - COVID-19 Status: Acute Assessment and Plan: patient was tested positive for COVID-19 on 03/07/2020 - continue dexamethasone and Remdesivir - patient received 1 unit of convalescent plasma 03/14 - monitor inflammatory markers (4) Multiple sclerosis: Code(s): G35 - Multiple sclerosis Status: Chronic Assessment and Plan: continue Dalfampridine, Modafinil (5) DVT prophylaxis: Code(s): Z29.9 - Encounter for prophylactic measures, unspecified Status: Acute Assessment and Plan: patient is currently on subcutaneous Lovenox at 1 milligram/kg Q day. Additional Plan DVT prophylaxis - Lovenox Stress ulcer prophylaxis - IV Protonix Nutrition - start Tube Feeds Code Status - Full Code Critical care time spent: 35 minutes Due to a high probability of clinically significant, life threatening deterioration, the patient required my highest level of preparedness to intervene emergently and I personally spent this critical care time directly and personally managing the patient. This critical care time included obtaining a history; examining the patient; pulse oximetry; ordering and review of studies; arranging urgent treatment with development of a management plan; evaluation of patient's response to treatment; frequent reassessment; and discussions with other providers. It was exclusive of separately billable procedures and treating other patients and teaching time. Please see Assessment and Plan section and the rest of the note for further information on patient assessment and treatment Subjective Date/time seen: 03/16/20 Overnight events reviewed. Patient's respiratory status and hypoxia worsened yesterday. Patient was intubated at that time. Patient desaturated post intubation and required transient bag ventilation with a PEEP valve later in the night patient became hypertensive and Levophed was started and a central venous catheter was placed afebrile Review of Systems Review of Systems: ROS unobtainable: Yes unobtainable due to endotracheal tube Exam Narrative: Exam Narrative: General: Pt is sedated, intubated and on mechanical ventilation Lungs/Chest: Trachea central Coarse BS B/L, No crackles or wheezing. Cardiac: RRR. Normal S1 S2. No murmurs Circulation: Pedal pulses are intact and symmetrical. Abdomen: Decreased bowel sounds. Soft. NT. ND. Extremities: No clubbing, cyanosis or edema. Warm, right femoral central venous catheter : Lyons in place Neurologic: Unable to assess due to sedation. opens eyes on calling her name, regards examiner but does not follow any commands PERRL Objective Data Vital Signs Vital Signs: Vital Signs - 24 hr 03/15/20 16:00 03/15/20 17:45 03/15/20 17:52 Temperature 37.3 C Pulse Rate 62 82 87 Respiratory Rate 27 H 33 H Blood Pressure 137/57 L Pulse Oximetry 95 94 03/15/20 18:00 03/15/20 18:15 03/15/20 18:30 Temperature Pulse Rate 92 88 89 Respiratory Rate 92 H 23 H 2
--- NOTE | 2020-03-16 14:08 | PM.IMPN ---
Progress Note: A&P Assessment and Plan (1) Acute respiratory failure with hypoxia: Code(s): J96.01 - Acute respiratory failure with hypoxia Status: Acute Assessment and Plan: Result of COVID-19 infection. Unfortunately pt was emergently intubated last night. (2) COVID-19 virus infection: Code(s): U07.1 - COVID-19 Status: Acute Assessment and Plan: Positive COVID-19 testing on 03/07/2020. On iv vasopressors, remdesivir and steroids iv (3) Multiple sclerosis: Code(s): G35 - Multiple sclerosis Status: Chronic Assessment and Plan: We will continue dalfampridine (4) HTN (hypertension), benign: Code(s): I10 - Essential (primary) hypertension Status: Acute Assessment and Plan: Pt is on BP support with levophed (5) Depression: Qualifiers: Depression Type: unspecified Qualified Code(s): F32.9 - Major depressive disorder, single episode, unspecified Code(s): F32.9 - Major depressive disorder, single episode, unspecified Status: Chronic Assessment and Plan: Mood presently stable. Will continue citalopram. Crushed down the NG (6) Hypothyroidism, unspecified: Qualifiers: Hypothyroidism type: unspecified Qualified Code(s): E03.9 - Hypothyroidism, unspecified Code(s): E03.9 - Hypothyroidism, unspecified Status: Chronic Assessment and Plan: Stable. Continue levothyroxine. Crushed down the NG (7) DVT prophylaxis: Code(s): Z29.9 - Encounter for prophylactic measures, unspecified Status: Acute Assessment and Plan: Lovenox. Subjective Date/time seen: 03/16/20 14:08 Interval history: Pt admitted with acute respiratory failure, COVID-19 infection. Pt was emergently intubated last night. Pt is on levophed, steroids and iv remdesivir. Review of Systems Review of Systems: ROS unobtainable: Yes unobtainable due to endotracheal tube Exam Narrative: Exam Narrative: Pt is intubated on vent in ICU Objective Data Vital Signs Vital Signs: Vital Signs - 24 hr 03/15/20 16:00 03/15/20 17:45 03/15/20 17:52 Temperature 37.3 C Pulse Rate 62 82 87 Respiratory Rate 27 H 33 H Blood Pressure 137/57 L Pulse Oximetry 95 94 03/15/20 18:00 03/15/20 18:15 03/15/20 18:30 Temperature Pulse Rate 92 88 89 Respiratory Rate 92 H 23 H 25 H Blood Pressure 122/64 Pulse Oximetry 89 L 03/15/20 18:45 03/15/20 19:00 03/15/20 19:15 Temperature Pulse Rate 77 74 74 Respiratory Rate 25 H 25 H 25 H Blood Pressure Pulse Oximetry 03/15/20 19:30 03/15/20 19:59 03/15/20 20:00 Temperature Pulse Rate 83 100 100 Respiratory Rate 83 H 22 H 25 H Blood Pressure Pulse Oximetry 98 97 03/15/20 20:04 03/15/20 20:30 03/15/20 21:12 Temperature 38.6 C H Pulse Rate 102 H 88 79 Respiratory Rate 20 24 H 25 H Blood Pressure 140/80 114/56 L 99/75 L Pulse Oximetry 99 100 95 03/15/20 21:20 03/15/20 21:30 03/15/20 22:00 Temperature 38.6 C H Pulse Rate 77 79 Respiratory Rate 24 H 25 H Blood Pressure 119/86 60/49 L Pulse Oximetry 100 95 03/15/20 22:16 03/15/20 22:30 03/15/20 22:35 Temperature Pulse Rate 75 60 59 L Respiratory Rate 25 H 25 H Blood Pressure 75/53 L Pulse Oximetry 96 03/15/20 22:45 03/15/20 22:51 03/15/20 22:57 Temperature Pulse Rate 59 L 67 71 Respiratory Rate Blood Pressure 157/75 H 153/66 H Pulse Oximetry 03/15/20 23:00 03/15/20 23:06 03/15/20 23:08 Temperature Pulse Rate 72 75 96 Respiratory Rate 26 H 27 H Blood Pressure 147/67 H 133/68 Pulse Oximetry 100 99 03/15/20 23:15 03/15/20 23:55 03/16/20 00:00 Temperature Pulse Rate 72 76 71 Respiratory Rate 34 H 25 H Blood Pressure Pulse Oximetry 100 100 03/16/20 00:01 03/16/20 00:16 03/16/20 00:50 Temperature 36.6 C Pulse Rate 66 62 Respiratory Rate 25 H 25 H Blood Pressure Pulse Oximetry 99 100
[2020-03-16] MEDS: POTASSIUM CHLORIDE 20 MEQ PACKET (FOR LIQUID) 40 MEQ PO ×2 (15:14→21:09)
[2020-03-16 16:38] LABS: Alveolar/Arterial O2 Gradient 503.6 mmHg; Base Excess ABG -3.2 mEq/l (+/-2.0); Fractional Inspired Oxygen 100 %; HCO3 ABG 22.4 mEq/l (22.0-26.0); Oxygen Content ABG 18.5 %vol (16.0-22.0); Oxyhemoglobin 97.7 % THb (90.0-100.0); PCO2 ABG 41.8 mmHg (35.0-45.0); PO2 ABG 167.6 mmHg (80.0-100.0); PO2 FiO2 Ratio Arterial Blood 1.68 %; Total Hemoglobin 13.2 g/dL (12.0-18.0); pH ABG 7.346 (7.350-7.450)
[2020-03-16 16:45] LABS: Arterial Blood Gas Vent Mode CMV; Arterial Blood Gas Ventilator rate 25 /MIN; Device VENTILATOR; Modified Allen's Test Pass; Site Drawn RIGHT RADIAL
[2020-03-16 16:46] LABS: Arterial Blood Gas PEEP 14 cmH2O; Arterial Blood Gas Tidal Volume 380 ml
[2020-03-16] MEDS: RAPID SEQUENCE INTUBATION KIT 1 EACH (16:52)
[2020-03-16] MEDS: REMDESIVIR 100 MG/NS 250 ML 100 MG/250 ML BAG 250 MG IVPB (17:19)
[2020-03-16 18:25] LABS: Glucose Point of Care 168 (65-105)
[2020-03-16] MEDS: IPRATROPIUM BR 0.02% INH SOLN 0.5 MG/2.5 ML VIAL INHALATION (20:56)
[2020-03-16] MEDS: ALBUTEROL SULFATE NEB 2.5 MG/0.5 ML INH INHALATION (20:57)
[2020-03-16] MEDS: NOREPINEPHRINE 8 MG/D5W 250 ML 8 MG/250 ML BAG 5.6 MG IV CONT (21:08)
--- NOTE | 2020-03-16 23:09 | PC.NURSE ---
Olivia stewart applied for temp of 95.4
[2020-03-17] VITALS (33 sets, daily range): BP systolic 82–119; BP diastolic 47–66; PULSE 51–102; RESP 25–30; TEMP 35.7–37.4; O2SAT 91–98
--- NOTE | 2020-03-17 02:11 | PC.NURSE ---
Patient off jia hugger for temp of 98.6. Continue to monitor.
[2020-03-17] MEDS: IPRATROPIUM BR 0.02% INH SOLN 0.5 MG/2.5 ML VIAL INHALATION ×4 (02:51→19:58)
[2020-03-17] MEDS: ALBUTEROL SULFATE NEB 2.5 MG/0.5 ML INH INHALATION ×4 (02:51→19:58)
[2020-03-17 03:44] LABS: Alanine Aminotransferase 29 U/L (4-35); Albumin Level 2.7 g/dL (3.5-5.1); Alkaline Phosphatase 54 U/L (38-126); Anion Gap 4 mmol/L (8-16); Aspartate Amino Transferase 33 U/L (14-36); Bilirubin,Total 0.1 mg/dL (0.2-1.3); Blood Urea Nitrogen 23 mg/dL (7-17); Calcium 8.3 mg/dL (8.4-10.2); Carbon Dioxide 27 mmol/L (22-30); Chloride 111 mmol/L (98-107); Estimated CRCL calculation 65 ml/min; Estimated Glomerular Filt Rate > 60; Glucose 216 mg/dL (65-105); Lactate Dehydrogenase 769 U/L (313-618); Magnesium 2.1 mg/dL (1.6-2.3); Potassium 3.5 mmol/L (3.4-5.0); Sodium 142 mmol/L (137-145)
[2020-03-17 03:46] LABS: Hematocrit 35.4 % (37.0-47.0); Hemoglobin 11.3 g/dL (12.0-15.0); Mean Corpuscular HGB Conc 31.9 g/dl (32-36); Mean Corpuscular Hemoglobin 29.8 pg (26-34); Mean Corpuscular Volume 93.4 fl (80-100); Mean Platelet Volume 9.5 fl (7.4-10.4); Platelet Count Result 367 k/mm3 (150-375); Red Blood Count 3.79 M/mm3 (4.2-5.4); Red Cell Distribution Width 13.3 % (11.5-14.5); White Blood Count 13.6 K/mm3 (4.5-10.0)
[2020-03-17 03:51] LABS: D Dimer 0.61 ug/mL (<0.48)
[2020-03-17 04:35] LABS: Alveolar/Arterial O2 Gradient 292.5 mmHg; Base Excess ABG -3.4 mEq/l (+/-2.0); Carboxyhemoglobin 0.3 % THb (0-2.0); Fractional Inspired Oxygen 60 %; Methemoglobin ABG 0.1 %THb (0-1.5); Oxygen Content ABG 16.5 %vol (16.0-22.0); Oxygen Saturation ABG 97.3 % (95.0-100.0); Oxyhemoglobin 96.2 % THb (90.0-100.0); PCO2 ABG 35.9 mmHg (35.0-45.0); PO2 ABG 95.8 mmHg (80.0-100.0); Reduced Hemoglobin 3.4 %THb (0-5.0); Total Hemoglobin 12.1 g/dL (12.0-18.0); pH ABG 7.386 (7.350-7.450)
[2020-03-17 04:36] LABS: Arterial Blood Gas PEEP 14 cmH2O; Arterial Blood Gas Tidal Volume 380 ml; Arterial Blood Gas Vent Mode CMV; Arterial Blood Gas Ventilator rate 25 /MIN; Device VENTILATOR; Modified Allen's Test Pass; Site Drawn LEFT RADIAL
[2020-03-17] MEDS: LEVOTHYROXINE SODIUM 100 MCG TABLET PO (05:10)
--- NOTE | 2020-03-17 08:20 | WPDINTPN ---
Progress Note: A&P Assessment and Plan (1) Acute respiratory failure with hypoxia: Code(s): J96.01 - Acute respiratory failure with hypoxia Status: Acute Assessment and Plan: acute respiratory failure likely secondary to COVID-19 pneumonia - worsening chest x-ray and ABGs - patient was intubated last night due to worsening hypoxia and respiratory distress Continue full mechanical ventilation support to prevent hypoxemia/hypercarbia and end organ damage. ABG and PCXR reviewed and will repeat in am. Tidal volume decreased with 380. FiO2 is at 60% I will decrease the PEEP to 12 after reviewing ABG continue to wean FiO2 as possible Bronchodilators will use paralytic as needed avoid continues infusion at this time (2) Shock: Code(s): R57.9 - Shock, unspecified Status: Acute Assessment and Plan: patient was given small fluid boluses last night during intubation. Continue Levophed titration. patient is on Decadron not on IV fluids (3) COVID-19 virus infection: Code(s): U07.1 - COVID-19 Status: Acute Assessment and Plan: patient was tested positive for COVID-19 on 03/07/2020 - continue dexamethasone and Remdesivir - patient received 1 unit of convalescent plasma 03/14 - monitor inflammatory markers (4) Multiple sclerosis: Code(s): G35 - Multiple sclerosis Status: Chronic Assessment and Plan: continue Dalfampridine, Modafinil (5) DVT prophylaxis: Code(s): Z29.9 - Encounter for prophylactic measures, unspecified Status: Acute Assessment and Plan: patient is currently on subcutaneous Lovenox at 1 milligram/kg Q day. Additional Plan DVT prophylaxis - Lovenox Stress ulcer prophylaxis - IV Protonix Nutrition - continue Tube Feeds Code Status - Full Code Critical care time spent: 30 minutes Due to a high probability of clinically significant, life threatening deterioration, the patient required my highest level of preparedness to intervene emergently and I personally spent this critical care time directly and personally managing the patient. This critical care time included obtaining a history; examining the patient; pulse oximetry; ordering and review of studies; arranging urgent treatment with development of a management plan; evaluation of patient's response to treatment; frequent reassessment; and discussions with other providers. It was exclusive of separately billable procedures and treating other patients and teaching time. Please see Assessment and Plan section and the rest of the note for further information on patient assessment and treatment Subjective Date/time seen: 03/17/20 0820 Overnight events reviewed. Patient had episode yesterday afternoon which she desaturated. lung recruitment maneuver was done on the ventilator and PEEP was increased. Patient had to given a paralytic which led to improvement in saturation. Afebrile Continues to be on mechanical ventilation With 60% FiO2 and 14 of PEEP Continues to be on low-dose Levophed Vitals acceptable sedated Review of Systems Review of Systems: All systems reviewed & are unremarkable except as noted in HPI and below ( Subjective) ROS unobtainable: Yes unobtainable due to endotracheal tube Exam Narrative: Exam Narrative: General: Pt is sedated, intubated and on mechanical ventilation Lungs/Chest: Trachea central Coarse BS B/L, No crackles or wheezing. Cardiac: RRR. Normal S1 S2. No murmurs Circulation: Pedal pulses are intact and symmetrical. Abdomen: Decreased bowel sounds. Soft. NT. ND. Extremities: No clubbing, cyanosis or edema. Warm, right femoral central venous catheter : Lyons in place Neurologic: Unable to assess due to sedation. PERRL Objective Data Vital Signs Vital Signs: Vital Signs - 24 hr 03/16/20 11:10 03/16/20 12:00 03/16/20 14:00 Temperature 36.5 C Pulse Rate 58 L 53 L 54 L Respiratory Rate 20 25 H Blood Pre
[2020-03-17] MEDS: SOLIFENACIN 5 MG TABLET PO (09:17)
[2020-03-17] MEDS: CITALOPRAM HYDROBROMIDE 20 MG TABLET 40 MG PO (09:17)
[2020-03-17] MEDS: ENOXAPARIN 80 MG/0.8 ML SYRINGE 75 MG SUB-Q (09:17)
[2020-03-17] MEDS: PANTOPRAZOLE SODIUM IV 40 MG VIAL IV PUSH (09:17)
[2020-03-17] MEDS: CHOLECALCIFEROL 1,000 UNITS TABLET 2000 UNITS PO (09:18)
[2020-03-17] MEDS: TRIAMCINOLONE ACET 0.1% CREAM 15 GM TUBE 1 APPLIC TOPICAL ×4 (09:20→20:29)
--- NOTE | 2020-03-17 12:09 | PCDIET ---
Nutrition Follow-Up Complete: Nutrition Diagnosis: Inadequate oral intake related to oral intubation as evidenced by NPO status. Nutrition Goal: Patient to meet estimated nutrition needs. Goal met. Patient tolerating Vital 1.5 at 40mL/hr goal rate with Pro-Stat flush BID. Gastric residuals 0-175mL. Last recorded weight is 78.7 kg which is increased from last review. +I/O. Bowel Motility: Last documented BM on 03/14/20. Labs Reviewed: Hgb (11.3), Hct (35.4), Glu (216), BUN (23) Alb (2.7), Cl (111) Meds Noted: Albuterol, Decadron, Fentanyl, Novolog, Atrovent, Versed, Dalfampridine, Levophed, Protonix, Remdesivir, Vitamin D Additional Notes: No documented skin breakdown. Will continue to monitor with same goal. Nutrition Monitoring and Evaluation: Follow up every Friday/Friday. Follow daily in ICU rounds.
[2020-03-17] MEDS: INSULIN ASPART (*BKC) 100 UNITS/ML SUB-Q ×2 (12:30→17:51)
[2020-03-17 12:47] LABS: Glucose Point of Care 243 (65-105)
--- NOTE | 2020-03-17 13:44 | PM.IMPN ---
Progress Note: A&P Assessment and Plan (1) Acute respiratory failure with hypoxia: Code(s): J96.01 - Acute respiratory failure with hypoxia Status: Acute Assessment and Plan: Result of COVID-19 infection. Unfortunately pt remains intubated in icu. (2) COVID-19 virus infection: Code(s): U07.1 - COVID-19 Status: Acute Assessment and Plan: Positive COVID-19 testing on 03/07/2020. On iv vasopressors, remdesivir and steroids iv (3) Multiple sclerosis: Code(s): G35 - Multiple sclerosis Status: Chronic Assessment and Plan: We will continue dalfampridine (4) HTN (hypertension), benign: Code(s): I10 - Essential (primary) hypertension Status: Acute Assessment and Plan: Pt is on BP support with levophed (5) Depression: Qualifiers: Depression Type: unspecified Qualified Code(s): F32.9 - Major depressive disorder, single episode, unspecified Code(s): F32.9 - Major depressive disorder, single episode, unspecified Status: Chronic Assessment and Plan: Mood presently stable. Will continue citalopram. Crushed down the NG (6) Hypothyroidism, unspecified: Qualifiers: Hypothyroidism type: unspecified Qualified Code(s): E03.9 - Hypothyroidism, unspecified Code(s): E03.9 - Hypothyroidism, unspecified Status: Chronic Assessment and Plan: Stable. Continue levothyroxine. Crushed down the NG (7) DVT prophylaxis: Code(s): Z29.9 - Encounter for prophylactic measures, unspecified Status: Acute Assessment and Plan: Lovenox. Subjective Date/time seen: 03/17/20 13:44 Interval history: Pt admitted with acute respiratory failure, COVID-19 infection. Pt is intubated in icu. Pt is on levophed, steroids and iv remdesivir. Review of Systems Review of Systems: ROS unobtainable: Yes unobtainable due to endotracheal tube Exam Narrative: Exam Narrative: Pt is intubated on vent in ICU Objective Data Vital Signs Vital Signs: Vital Signs - 24 hr 03/16/20 14:00 03/16/20 14:25 03/16/20 16:00 Temperature 36.3 C L Pulse Rate 54 L 53 L 73 Respiratory Rate 25 H 17 Blood Pressure 118/57 L 120/52 L Pulse Oximetry 97 98 100 03/16/20 16:40 03/16/20 18:00 03/16/20 20:00 Temperature Pulse Rate 73 54 L 47 L Respiratory Rate 25 H 25 H Blood Pressure 129/61 138/67 Pulse Oximetry 100 98 99 03/16/20 20:57 03/16/20 21:07 03/16/20 21:08 Temperature Pulse Rate 46 L 49 L 49 L Respiratory Rate 25 H 25 H Blood Pressure 149/69 H Pulse Oximetry 100 03/16/20 21:14 03/16/20 21:15 03/16/20 21:16 Temperature 35.6 C L Pulse Rate 44 L 45 L 53 L Respiratory Rate 25 H 25 H 22 H Blood Pressure 101/57 L Pulse Oximetry 97 03/16/20 21:45 03/16/20 22:00 03/16/20 23:07 Temperature Pulse Rate 51 L 47 L Respiratory Rate 25 H Blood Pressure 114/70 112/63 Pulse Oximetry 98 96 03/16/20 23:09 03/16/20 23:35 03/16/20 23:44 Temperature 35.2 C L Pulse Rate 49 L 52 L 55 L Respiratory Rate 25 H Blood Pressure 112/63 113/68 Pulse Oximetry 97 94 03/17/20 00:00 03/17/20 00:20 03/17/20 00:28 Temperature Pulse Rate 56 L 56 L 56 L Respiratory Rate 25 H 25 H Blood Pressure 82/59 L 82/59 L Pulse Oximetry 95 96 03/17/20 00:29 03/17/20 01:00 03/17/20 02:00 Temperature 35.7 C L 37.0 C Pulse Rate 57 L 58 L 68 Respiratory Rate 25 H 25 H 25 H Blood Pressure 88/66 L 109/57 L 93/57 L Pulse Oximetry 96 97 91 03/17/20 02:10 03/17/20 02:52 03/17/20 02:58 Temperature Pulse Rate 68 64 64 Respiratory Rate 25 H Blood Pressure 93/57 L Pulse Oximetry 97 03/17/20 03:00 03/17/20 03:04 03/17/20 03:08 Temperature Pulse Rate 70 69 65 Respiratory Rate 25 H 25 H 25 H Blood Pressure 94/63 L Pulse Oximetry 96 96 03/17/20 03:19 03/17/20 03:20 03/17/20 04:00 Temperature 36.9 C Pulse Rate 67 68 60 Respiratory Rate
[2020-03-17] MEDS: REMDESIVIR 100 MG/NS 250 ML 100 MG/250 ML BAG 250 MG IVPB (17:51)
[2020-03-17 19:04] LABS: Glucose Point of Care 283 (65-105)
[2020-03-18] VITALS (38 sets, daily range): BP systolic 94–120; BP diastolic 46–64; PULSE 43–75; RESP 25–26; TEMP 35.4–37.5; O2SAT 87–96
[2020-03-18 00:26] LABS: Glucose Point of Care 197 (65-105)
[2020-03-18] MEDS: ALBUTEROL SULFATE NEB 2.5 MG/0.5 ML INH INHALATION ×4 (01:40→20:42)
[2020-03-18] MEDS: IPRATROPIUM BR 0.02% INH SOLN 0.5 MG/2.5 ML VIAL INHALATION ×4 (01:40→20:42)
[2020-03-18 04:19] LABS: Alveolar/Arterial O2 Gradient 248.3 mmHg; Base Excess ABG 2.2 mEq/l (+/-2.0); Carboxyhemoglobin 0.2 % THb (0-2.0); Device VENTILATOR; Fractional Inspired Oxygen 50 %; Methemoglobin ABG 0.2 %THb (0-1.5); Modified Allen's Test Pass; Oxygen Content ABG 15.4 %vol (16.0-22.0); Oxyhemoglobin 92.6 % THb (90.0-100.0); PCO2 ABG 37.6 mmHg (35.0-45.0); PO2 ABG 65.9 mmHg (80.0-100.0); PO2 FiO2 Ratio Arterial Blood 1.32 %; Site Drawn LEFT RADIAL; Total Hemoglobin 11.8 g/dL (12.0-18.0); pH ABG 7.458 (7.350-7.450)
[2020-03-18 04:20] LABS: Arterial Blood Gas PEEP 12 cmH2O; Arterial Blood Gas Tidal Volume 380 ml; Arterial Blood Gas Vent Mode CMV; Arterial Blood Gas Ventilator rate 25 /MIN
[2020-03-18 04:38] LABS: Hematocrit 30.3 % (37.0-47.0); Hemoglobin 9.6 g/dL (12.0-15.0); Mean Corpuscular HGB Conc 31.7 g/dl (32-36); Mean Corpuscular Hemoglobin 29.5 pg (26-34); Mean Corpuscular Volume 93.2 fl (80-100); Mean Platelet Volume 9.7 fl (7.4-10.4); Platelet Count Result 276 k/mm3 (150-375); Red Blood Count 3.25 M/mm3 (4.2-5.4); Red Cell Distribution Width 13.2 % (11.5-14.5); White Blood Count 11.6 K/mm3 (4.5-10.0)
[2020-03-18 04:52] LABS: Alanine Aminotransferase 21 U/L (4-35); Albumin Level 2.5 g/dL (3.5-5.1); Alkaline Phosphatase 48 U/L (38-126); Anion Gap 3 mmol/L (8-16); Aspartate Amino Transferase 23 U/L (14-36); Bilirubin,Total < 0.1 mg/dL (0.2-1.3); Blood Urea Nitrogen 28 mg/dL (7-17); Calcium 8.2 mg/dL (8.4-10.2); Carbon Dioxide 29 mmol/L (22-30); Chloride 112 mmol/L (98-107); Estimated CRCL calculation 86 ml/min; Estimated Glomerular Filt Rate > 60; Glucose 222 mg/dL (65-105); Lactate Dehydrogenase 540 U/L (313-618); Magnesium 2.2 mg/dL (1.6-2.3); Potassium 3.7 mmol/L (3.4-5.0); Sodium 144 mmol/L (137-145)
[2020-03-18 05:03] LABS: D Dimer 0.64 ug/mL (<0.48)
[2020-03-18] MEDS: INSULIN ASPART (*BKC) 100 UNITS/ML SUB-Q ×2 (05:34→17:55)
[2020-03-18] MEDS: LEVOTHYROXINE SODIUM 100 MCG TABLET PO (05:35)
[2020-03-18 06:16] LABS: Glucose Point of Care 208 (65-105)
[2020-03-18] MEDS: ENOXAPARIN 80 MG/0.8 ML SYRINGE 75 MG SUB-Q (07:43)
[2020-03-18] MEDS: PANTOPRAZOLE SODIUM IV 40 MG VIAL IV PUSH (07:44)
[2020-03-18] MEDS: SOLIFENACIN 5 MG TABLET PO (07:44)
[2020-03-18] MEDS: CITALOPRAM HYDROBROMIDE 20 MG TABLET 40 MG PO (07:45)
[2020-03-18] MEDS: CHOLECALCIFEROL 1,000 UNITS TABLET 2000 UNITS PO (07:45)
[2020-03-18] MEDS: TRIAMCINOLONE ACET 0.1% CREAM 15 GM TUBE 1 APPLIC TOPICAL ×4 (07:45→21:05)
--- NOTE | 2020-03-18 09:58 | PM.IMPN ---
Progress Note: A&P Assessment and Plan (1) Acute respiratory failure with hypoxia: Code(s): J96.01 - Acute respiratory failure with hypoxia Status: Acute Assessment and Plan: Due to COVID-19 Continue to support (2) COVID-19 virus infection: Code(s): U07.1 - COVID-19 Status: Acute Assessment and Plan: Positive COVID-19 testing on 03/07/2020. Continue iv vasopressors, remdesivir and steroids iv Received convalescent plasma 03/14 (3) Multiple sclerosis: Code(s): G35 - Multiple sclerosis Status: Chronic Assessment and Plan: continue dalfampridine (4) HTN (hypertension), benign: Code(s): I10 - Essential (primary) hypertension Status: Acute Assessment and Plan: Holding meds (5) Depression: Qualifiers: Depression Type: unspecified Qualified Code(s): F32.9 - Major depressive disorder, single episode, unspecified Code(s): F32.9 - Major depressive disorder, single episode, unspecified Status: Chronic Assessment and Plan: continue citalopram via NG (6) Hypothyroidism, unspecified: Qualifiers: Hypothyroidism type: unspecified Qualified Code(s): E03.9 - Hypothyroidism, unspecified Code(s): E03.9 - Hypothyroidism, unspecified Status: Chronic Assessment and Plan: Continue levothyroxine via NG (7) DVT prophylaxis: Code(s): Z29.9 - Encounter for prophylactic measures, unspecified Status: Acute Assessment and Plan: Lovenox. Subjective Date/time seen: 03/18/20 09:58 Interval history: sedated and intubated Review of Systems Review of Systems: ROS unobtainable: Yes unobtainable due to medical condition Exam Const: Other: HEENT: PERRL, sclerae nonicteric, pharyngeal mucosa pink and intact. ET tube present NECK: No JVD CHEST: Coarse BS HEART: NL S1/S2, regular, no murmur ABDOMEN: BS+ hypoactive, soft, nontender, no mass, no bruits EXTREMITIES: No cyanosis, edema, or clubbing NEUROLOGIC: CN intact and symmetric to inspection. MUSCULOSKELETAL: Tone symmetric PSYCH: Sedated Objective Data Vital Signs Vital Signs: Vital Signs - 24 hr 03/17/20 10:00 03/17/20 11:56 03/17/20 12:00 Temperature 98.8 F Pulse Rate 62 60 59 L Respiratory Rate 26 H 25 H Blood Pressure 109/59 L 100/51 L Pulse Oximetry 98 98 98 03/17/20 14:00 03/17/20 14:02 03/17/20 14:12 Temperature Pulse Rate 62 56 L 59 L Respiratory Rate 25 H 25 H 25 H Blood Pressure 105/55 L Pulse Oximetry 96 98 03/17/20 16:00 03/17/20 17:11 03/17/20 18:00 Temperature 99.3 F Pulse Rate 57 L 57 L 61 Respiratory Rate 26 H 26 H Blood Pressure 111/55 L 93/47 L Pulse Oximetry 97 98 95 03/17/20 19:58 03/17/20 20:00 03/17/20 20:03 Temperature 98.6 F Pulse Rate 57 L 102 H 58 L Respiratory Rate 26 H 30 H 25 H Blood Pressure 102/64 Pulse Oximetry 95 03/17/20 22:00 03/17/20 22:23 03/18/20 00:00 Temperature 97.7 F Pulse Rate 52 L 51 L 55 L Respiratory Rate 25 H 25 H Blood Pressure 98/50 L 94/57 L Pulse Oximetry 96 95 87 L 03/18/20 00:01 03/18/20 01:29 03/18/20 01:30 Temperature Pulse Rate 49 L 49 L 49 L Respiratory Rate 25 H 25 H 25 H Blood Pressure Pulse Oximetry 03/18/20 01:41 03/18/20 01:43 03/18/20 01:49 Temperature Pulse Rate 49 L 49 L 52 L Respiratory Rate 25 H 25 H Blood Pressure Pulse Oximetry 95 03/18/20 02:00 03/18/20 04:00 03/18/20 04:02 Temperature 97.1 F L Pulse Rate 54 L 48 L 47 L Respiratory Rate 26 H 25 H Blood Pressure 99/46 L 96/49 L Pulse Oximetry 95 94 93 03/18/20 04:37 03/18/20 05:47 03/18/20 06:00 Temperature Pulse Rate 49 L 43 L 45 L Respiratory Rate 25 H 25 H 25 H Blood Pressure 113/59 L Pulse Oximetry 96 03/18/20 07:25 03/18/20 07:59 03/18/20 08:00 Temperature 95.7 F L Pulse Rate 43 L 44 L 44 L Respiratory Rate 25 H 25 H 25 H Blood Pressure 116/59 L Puls
[2020-03-18 11:38] LABS: Glucose Point of Care 177 (65-105)
--- NOTE | 2020-03-18 13:06 | WPDINTPN ---
Progress Note: A&P Assessment and Plan (1) Acute respiratory failure with hypoxia: Code(s): J96.01 - Acute respiratory failure with hypoxia Status: Acute Assessment and Plan: acute respiratory failure likely secondary to COVID-19 pneumonia. Patient intubated on - worsening chest x-ray on 03/18/2020 - ABGs reviewed, patient requiring 50% FiO2 and peep of 12 CMV mode of ventilation - will weaned peep to 10 - low tidal volume strategy to avoid volume trauma - continue Bronchodilators - on fentanyl and Versed infusion for sedation, maintain RASS of 0 to -1, daily sedation vacation (2) Shock: Code(s): R57.9 - Shock, unspecified Status: Acute Assessment and Plan: patient was given small fluid boluses last night during intubation. off Levophed since 03/17/2020 in the evening - patient hypothermic, blankets were placed on the patient, Lyons with temp probe - patient is on Decadron not on IV fluids (3) COVID-19 virus infection: Code(s): U07.1 - COVID-19 Status: Acute Assessment and Plan: patient was tested positive for COVID-19 on 03/07/2020 - continue dexamethasone and Remdesivir - patient received 1 unit of convalescent plasma 03/14 - monitor inflammatory markers (4) Multiple sclerosis: Code(s): G35 - Multiple sclerosis Status: Chronic Assessment and Plan: continue Dalfampridine, Modafinil (5) DVT prophylaxis: Code(s): Z29.9 - Encounter for prophylactic measures, unspecified Status: Acute Assessment and Plan: patient is currently on subcutaneous Lovenox at 1 milligram/kg Q day. Additional Plan DVT prophylaxis - Lovenox Stress ulcer prophylaxis - IV Protonix Nutrition - continue Tube Feeds Code Status - Full Code Critical care time spent: 34 minutes Due to a high probability of clinically significant, life threatening deterioration, the patient required my highest level of preparedness to intervene emergently and I personally spent this critical care time directly and personally managing the patient. This critical care time included obtaining a history; examining the patient; pulse oximetry; ordering and review of studies; arranging urgent treatment with development of a management plan; evaluation of patient's response to treatment; frequent reassessment; and discussions with other providers. It was exclusive of separately billable procedures and treating other patients and teaching time. Please see Assessment and Plan section and the rest of the note for further information on patient assessment and treatment Subjective Date/time seen: 03/18/20 13:06 Interval history: Reason for consult: COVID-19 pneumonia, acute respiratory failure, shock, multiple sclerosis - off Levophed since 03/17/2020 in the evening 03/18/2020: Patient seen and examined this morning, remains intubated on CMV mode of ventilation, peep of 12, 50% FiO2. Sedated with fentanyl 50 mcg/hr and Versed 3 mg/hr. patient does not open her eyes to name, does not withdraw to pain. Tolerating tube feeds, adequate urine output. She is afebrile. LFTs are normal, LDH stable, CRP and ferritin along with D-dimer trending down. patient is hypothermic, Review of Systems Review of Systems: All systems reviewed & are unremarkable except as noted in HPI and below Exam Const: General: cooperative, no acute distress and awake HENMT: Other: ETT in place Eyes: Sclera: sclerae normal Pupils: Equal, round and reactive pupils present Neck: Neck: supple and no JVD Resp: Effort & Inspection: normal respiratory effort Auscultation: rales and diminished lung sounds Other: coarse breath sounds bilaterally, good air entry Cardio: Rate: bradycardic Rhythm: regular rhythm GI: Inspection: non-distended GI Palp: Yes Soft to palpation and Yes Tenderness to palpation present (GI) Auscultation: abnormal bowel sounds ( hypoactive bowel sounds) : Othe
[2020-03-18] MEDS: LIDOCAINE HCL 1% PF INJ 5 ML VIAL INFILTRATE (14:06)
[2020-03-18] MEDS: polyethylene glycoL 3350 17 GM POWD.PACK FEED TUBE (14:06)
[2020-03-18] MEDS: CENTRAL LINE FLUSH 10 ML IV PUSH ×2 (14:07→21:06)
[2020-03-18 17:39] LABS: Glucose Point of Care 203 (65-105)
[2020-03-19] VITALS (34 sets, daily range): BP systolic 113–135; BP diastolic 47–63; PULSE 48–80; RESP 25; TEMP 36.9–37.5; O2SAT 94–98
[2020-03-19 00:14] LABS: Glucose Point of Care 187 (65-105)
[2020-03-19] MEDS: ALBUTEROL SULFATE NEB 2.5 MG/0.5 ML INH INHALATION ×4 (02:53→21:23)
[2020-03-19] MEDS: IPRATROPIUM BR 0.02% INH SOLN 0.5 MG/2.5 ML VIAL INHALATION ×4 (02:53→21:23)
[2020-03-19 05:05] LABS: Alveolar/Arterial O2 Gradient 234.3 mmHg; Base Excess ABG 3.4 mEq/l (+/-2.0); Carboxyhemoglobin 0.2 % THb (0-2.0); Fractional Inspired Oxygen 50 %; HCO3 ABG 27.7 mEq/l (22.0-26.0); Methemoglobin ABG 0.2 %THb (0-1.5); Oxygen Content ABG 14.9 %vol (16.0-22.0); Oxygen Saturation ABG 95.7 % (95.0-100.0); Oxyhemoglobin 93.6 % THb (90.0-100.0); PCO2 ABG 41.2 mmHg (35.0-45.0); PO2 ABG 75.9 mmHg (80.0-100.0); PO2 FiO2 Ratio Arterial Blood 1.52 %; Total Hemoglobin 11.3 g/dL (12.0-18.0); pH ABG 7.446 (7.350-7.450)
[2020-03-19 05:06] LABS: Device VENTILATOR; Modified Allen's Test Pass; Site Drawn RIGHT RADIAL
[2020-03-19 05:07] LABS: Arterial Blood Gas PEEP 12 cmH2O; Arterial Blood Gas Tidal Volume 380 ml; Arterial Blood Gas Vent Mode CMV; Arterial Blood Gas Ventilator rate 25 /MIN
[2020-03-19] MEDS: LEVOTHYROXINE SODIUM 100 MCG TABLET PO (05:43)
[2020-03-19] MEDS: CENTRAL LINE FLUSH 10 ML IV PUSH ×3 (05:44→19:39)
[2020-03-19 06:05] LABS: Basophils Percent Auto 0.2 % (0.2-1.2); Hematocrit 32.6 % (37.0-47.0); Hemoglobin 10.2 g/dL (12.0-15.0); Immature Granulocyte Absolute 0.61 K/mm3 (0.00-0.031); Immature Granulocyte Percent A 4.4 % (0-0.5); Lymphocytes Absolute Auto 0.75 K/mm3 (0.9-3.2); Lymphocytes Percent Auto 5.4 % (18.3-44.2); Mean Corpuscular HGB Conc 31.3 g/dl (32-36); Mean Corpuscular Volume 92.6 fl (80-100); Monocytes Absolute Auto 0.8 K/mm3 (0.1-0.6); Monocytes Percent Auto 5.4 % (2.6-8.5); Neutrophils Absolute Auto 11.7 K/mm3 (1.3-6.7); Neutrophils Percent Auto 84.6 % (45.5-73.1); Nucleated Red Blood Cells Perc 0.1 % (0.0-0.2); Platelet Count Result 357 k/mm3 (150-375); Red Blood Count 3.52 M/mm3 (4.2-5.4); Red Cell Distribution Width 13.4 % (11.5-14.5); White Blood Count 13.8 K/mm3 (4.5-10.0)
[2020-03-19 06:24] LABS: Alanine Aminotransferase 36 U/L (4-35); Albumin Level 2.7 g/dL (3.5-5.1); Alkaline Phosphatase 55 U/L (38-126); Anion Gap 3 mmol/L (8-16); Aspartate Amino Transferase 54 U/L (14-36); Bilirubin,Total 0.2 mg/dL (0.2-1.3); Blood Urea Nitrogen 34 mg/dL (7-17); Calcium 8.4 mg/dL (8.4-10.2); Carbon Dioxide 30 mmol/L (22-30); Chloride 110 mmol/L (98-107); Estimated CRCL calculation 102 ml/min; Estimated Glomerular Filt Rate > 60; Glucose 183 mg/dL (65-105); Magnesium 2.3 mg/dL (1.6-2.3); Phosphorus 3.5 mg/dL (2.5-4.5); Potassium 3.8 mmol/L (3.4-5.0); Sodium 143 mmol/L (137-145)
[2020-03-19] MEDS: CHOLECALCIFEROL 1,000 UNITS TABLET 2000 UNITS PO (08:11)
[2020-03-19] MEDS: CITALOPRAM HYDROBROMIDE 20 MG TABLET 40 MG PO (08:11)
[2020-03-19] MEDS: polyethylene glycoL 3350 17 GM POWD.PACK FEED TUBE (08:11)
[2020-03-19] MEDS: SOLIFENACIN 5 MG TABLET PO (08:11)
[2020-03-19] MEDS: PANTOPRAZOLE SODIUM IV 40 MG VIAL IV PUSH (08:12)
[2020-03-19] MEDS: ENOXAPARIN 80 MG/0.8 ML SYRINGE 75 MG SUB-Q (08:12)
[2020-03-19] MEDS: TRIAMCINOLONE ACET 0.1% CREAM 15 GM TUBE 1 APPLIC TOPICAL ×4 (08:13→19:39)
[2020-03-19 11:30] LABS: Ammonia < 9 umol/L (9-30)
[2020-03-19 12:31] LABS: Glucose Point of Care 195 (65-105)
--- NOTE | 2020-03-19 14:01 | WPDINTPN ---
Progress Note: A&P Assessment and Plan (1) Acute respiratory failure with hypoxia: Code(s): J96.01 - Acute respiratory failure with hypoxia Status: Acute Assessment and Plan: acute respiratory failure likely secondary to COVID-19 pneumonia. Patient intubated on - worsening chest x-ray on 03/18/2020 - ABGs reviewed, patient requiring 50% FiO2 and peep of 12 CMV mode of ventilation - will weaned peep to 10 - low tidal volume strategy to avoid volume trauma - continue Bronchodilators - on Versed infusion for sedation, maintain RASS of 0 to -1, daily sedation vacation - patient opens her eyes but does not track or blink to threat, ammonia levels are normal, will obtain CT head (2) Shock: Code(s): R57.9 - Shock, unspecified Status: Acute Assessment and Plan: RESOLVED patient was given small fluid boluses last night during intubation. off Levophed since 03/17/2020 in the evening - patient hypothermic, blankets were placed on the patient, Lyons with temp probe - patient is on Decadron not on IV fluids (3) COVID-19 virus infection: Code(s): U07.1 - COVID-19 Status: Acute Assessment and Plan: patient was tested positive for COVID-19 on 03/07/2020 - continue dexamethasone - status post Remdesivir course - patient received 1 unit of convalescent plasma 03/14 - monitor inflammatory markers (4) Multiple sclerosis: Code(s): G35 - Multiple sclerosis Status: Chronic Assessment and Plan: continue Dalfampridine, Modafinil (5) DVT prophylaxis: Code(s): Z29.9 - Encounter for prophylactic measures, unspecified Status: Acute Assessment and Plan: patient is currently on subcutaneous Lovenox at 1 milligram/kg Q day. Additional Plan DVT prophylaxis - Lovenox Stress ulcer prophylaxis - IV Protonix Nutrition - continue Tube Feeds Code Status - Full Code Critical care time spent: 32minutes Due to a high probability of clinically significant, life threatening deterioration, the patient required my highest level of preparedness to intervene emergently and I personally spent this critical care time directly and personally managing the patient. This critical care time included obtaining a history; examining the patient; pulse oximetry; ordering and review of studies; arranging urgent treatment with development of a management plan; evaluation of patient's response to treatment; frequent reassessment; and discussions with other providers. It was exclusive of separately billable procedures and treating other patients and teaching time. Please see Assessment and Plan section and the rest of the note for further information on patient assessment and treatment Subjective Date/time seen: 03/19/20 14:01 Interval history: Reason for consult: COVID-19 pneumonia, acute respiratory failure, shock, multiple sclerosis - off Levophed since 03/17/2020 in the evening 03/19/2020: Patient remains intubated on CMV mode of ventilation, peep of 12, 50% FiO2. Urine output has been adequate, patient is afebrile. On Versed infusion only for sedation at 3 mg/ hour. Patient opens her eyes but does not track, does not blink to threat for follow simple commands. Minimal withdrawal to pain in all extremities. Ammonia levels were obtained which was < 9. tolerating tube feeds. no bowel movements Review of Systems Review of Systems: ROS unobtainable: Yes unobtainable due to endotracheal tube and unobtainable due to mental status Exam Const: General: cooperative, no acute distress and awake HENMT: Mouth: Yes moist mucous membranes Other: ETT in place Eyes: Sclera: sclerae normal Pupils: Equal, round and reactive pupils present Neck: Neck: supple and no JVD Resp: Effort & Inspection: normal respiratory effort Auscultation: rales and diminished lung sounds Other: coarse breath sounds bilaterally, good air entry Cardio: Rate: bradycardic R
[2020-03-19 18:27] LABS: Glucose Point of Care 180 (65-105)
--- NOTE | 2020-03-19 19:43 | PM.IMPN ---
Progress Note: A&P Assessment and Plan (1) Acute respiratory failure with hypoxia: Code(s): J96.01 - Acute respiratory failure with hypoxia Status: Acute Assessment and Plan: Due to COVID-19. Continue supportive care. Able to wean FiO2. Receiving neb treatments as well (2) Shock: Code(s): R57.9 - Shock, unspecified Status: Acute Assessment and Plan: Patient hypothermic and hypotensive. Hypotension treated with Levophed. Patient has been stabilized and able to wean off the Levophed on 03/17/20. Hypothermia treated with wrming blankets,etc. ABle to maintain temp better. (3) COVID-19 virus infection: Code(s): U07.1 - COVID-19 Status: Acute Assessment and Plan: Positive COVID-19 testing on 03/07/2020. Received convalescent plasma 03/14. Continue remdesivir and Dexamethasone. (4) Multiple sclerosis: Code(s): G35 - Multiple sclerosis Status: Chronic Assessment and Plan: Stable. Will need PT/OT after extubation. (5) Depression: Qualifiers: Depression Type: unspecified Qualified Code(s): F32.9 - Major depressive disorder, single episode, unspecified Code(s): F32.9 - Major depressive disorder, single episode, unspecified Status: Chronic Assessment and Plan: Stable.Continue citalopram via NG (6) Hypothyroidism, unspecified: Qualifiers: Hypothyroidism type: unspecified Qualified Code(s): E03.9 - Hypothyroidism, unspecified Code(s): E03.9 - Hypothyroidism, unspecified Status: Chronic Assessment and Plan: Stable. Continue levothyroxine via NG (7) DVT prophylaxis: Code(s): Z29.9 - Encounter for prophylactic measures, unspecified Status: Acute Assessment and Plan: Lovenox. Subjective Date/time seen: 03/19/20 19:43 Interval history: 64yo female with hx of MS here for acute respiratory failure related to COVID. Patietn intubated and sedated. Patietn down to 2mg Versed and off Fenatnyl. Toleratiing TF. Down to45% FiO2. Exam Narrative: Exam Narrative: AF 98.8 132/63 59 25 97% MV Gen - intubated and sedated Chest - lungs clear anteriroly with a few rhonchi in the flanks CV - RRR S1/S2; Tele showing one episode of ATach. Abd - Soft, NT, +BS - Lyons secured draining clear yellow urine Ext - No pedal edema, 2+ DP bilaterally Neuro - sedated but arouses Skin - Warm and dry Objective Data Vital Signs Vital Signs: Vital Signs - 24 hr 03/18/20 20:00 03/18/20 20:42 03/18/20 20:51 Temperature 99.5 F Pulse Rate 53 L 54 L 58 L Respiratory Rate 25 H 26 H 25 H Blood Pressure 120/64 Pulse Oximetry 94 03/18/20 20:54 03/18/20 22:00 03/18/20 23:30 Temperature 99 F Pulse Rate 58 L 56 L 52 L Respiratory Rate 25 H Blood Pressure 109/50 L Pulse Oximetry 94 95 96 03/19/20 00:00 03/19/20 02:00 03/19/20 02:30 Temperature 98.5 F 98.4 F Pulse Rate 50 L 50 L 50 L Respiratory Rate 25 H 25 H Blood Pressure 120/54 L 117/56 L Pulse Oximetry 94 98 96 03/19/20 02:53 03/19/20 03:00 03/19/20 03:11 Temperature Pulse Rate 49 L 50 L 62 Respiratory Rate 25 H 25 H 25 H Blood Pressure Pulse Oximetry 03/19/20 04:00 03/19/20 05:11 03/19/20 05:42 Temperature 98.4 F Pulse Rate 48 L 54 L 59 L Respiratory Rate 25 H 25 H Blood Pressure 121/48 L Pulse Oximetry 96 98 03/19/20 06:00 03/19/20 08:00 03/19/20 08:22 Temperature 98.7 F 98.9 F Pulse Rate 52 L 59 L 61 Respiratory Rate 25 H 25 H 25 H Blood Pressure 121/54 L 134/58 L Pulse Oximetry 97 97 03/19/20 08:30 03/19/20 08:31 03/19/20 10:00 Temperature 99 F Pulse Rate 61 64 52 L Respiratory Rate 25 H 25 H Blood Pressure 127/54 L Pulse Oximetry 97 97 03/19/20 11:10 03/19/20 12:00 03/19/20 14:00 Temperature 99.2 F 99.1 F Pulse Rate 56 L 54 L 58 L Respiratory Rate 25 H 25 H Blood Pressure 129/52 L 135/62 Pulse Oximetry
[2020-03-19] MEDS: ACETAMINOPHEN ELIXIR 325 MG/10.15 ML UDC 650 MG PO (21:37)
[2020-03-20] VITALS (31 sets, daily range): BP systolic 110–138; BP diastolic 54–73; PULSE 54–104; RESP 21–96; TEMP 37.4–37.8; O2SAT 25–98
[2020-03-20 00:09] LABS: Glucose Point of Care 174 (65-105)
[2020-03-20] MEDS: ALBUTEROL SULFATE NEB 2.5 MG/0.5 ML INH INHALATION ×4 (02:37→20:21)
[2020-03-20] MEDS: IPRATROPIUM BR 0.02% INH SOLN 0.5 MG/2.5 ML VIAL INHALATION ×4 (02:37→20:21)
[2020-03-20 04:04] LABS: Hematocrit 32.9 % (37.0-47.0); Hemoglobin 10.4 g/dL (12.0-15.0); Mean Corpuscular HGB Conc 31.6 g/dl (32-36); Mean Corpuscular Hemoglobin 29.8 pg (26-34); Mean Corpuscular Volume 94.3 fl (80-100); Mean Platelet Volume 9.9 fl (7.4-10.4); Platelet Count Result 354 k/mm3 (150-375); Red Blood Count 3.49 M/mm3 (4.2-5.4); Red Cell Distribution Width 13.4 % (11.5-14.5); White Blood Count 14.9 K/mm3 (4.5-10.0)
[2020-03-20 04:19] LABS: Alanine Aminotransferase 46 U/L (4-35); Albumin Level 2.7 g/dL (3.5-5.1); Alkaline Phosphatase 58 U/L (38-126); Anion Gap 5 mmol/L (8-16); Aspartate Amino Transferase 48 U/L (14-36); Bilirubin,Total 0.2 mg/dL (0.2-1.3); Blood Urea Nitrogen 33 mg/dL (7-17); Calcium 8.5 mg/dL (8.4-10.2); Carbon Dioxide 32 mmol/L (22-30); Chloride 108 mmol/L (98-107); Estimated CRCL calculation 102 ml/min; Estimated Glomerular Filt Rate > 60; Glucose 158 mg/dL (65-105); Magnesium 2.2 mg/dL (1.6-2.3); Potassium 3.5 mmol/L (3.4-5.0); Sodium 145 mmol/L (137-145)
[2020-03-20] MEDS: LEVOTHYROXINE SODIUM 100 MCG TABLET PO (05:13)
[2020-03-20] MEDS: CENTRAL LINE FLUSH 10 ML IV PUSH ×3 (05:13→20:55)
[2020-03-20 05:22] LABS: Alveolar/Arterial O2 Gradient 164.9 mmHg; Base Excess ABG 4.8 mEq/l (+/-2.0); Carboxyhemoglobin 0.1 % THb (0-2.0); Fractional Inspired Oxygen 40 %; HCO3 ABG 28.6 mEq/l (22.0-26.0); Methemoglobin ABG 0.2 %THb (0-1.5); Oxygen Content ABG 13.2 %vol (16.0-22.0); Oxygen Saturation ABG 95.9 % (95.0-100.0); Oxyhemoglobin 93.4 % THb (90.0-100.0); PCO2 ABG 39.6 mmHg (35.0-45.0); PO2 ABG 74.8 mmHg (80.0-100.0); PO2 FiO2 Ratio Arterial Blood 1.87 %; Reduced Hemoglobin 6.3 %THb (0-5.0); pH ABG 7.477 (7.350-7.450)
[2020-03-20 05:23] LABS: Device VENTILATOR; Modified Allen's Test Pass; Site Drawn RIGHT RADIAL
[2020-03-20 05:24] LABS: Arterial Blood Gas PEEP 10 cmH2O; Arterial Blood Gas Tidal Volume 380 ml; Arterial Blood Gas Vent Mode CMV; Arterial Blood Gas Ventilator rate 25 /MIN
[2020-03-20] MEDS: SOLIFENACIN 5 MG TABLET PO (08:57)
[2020-03-20] MEDS: ENOXAPARIN 80 MG/0.8 ML SYRINGE 75 MG SUB-Q (08:57)
[2020-03-20] MEDS: CHOLECALCIFEROL 1,000 UNITS TABLET 2000 UNITS PO (08:58)
[2020-03-20] MEDS: CITALOPRAM HYDROBROMIDE 20 MG TABLET 40 MG PO (08:58)
[2020-03-20] MEDS: PANTOPRAZOLE SODIUM IV 40 MG VIAL IV PUSH (08:59)
[2020-03-20] MEDS: polyethylene glycoL 3350 17 GM POWD.PACK FEED TUBE (08:59)
[2020-03-20] MEDS: TRIAMCINOLONE ACET 0.1% CREAM 15 GM TUBE 1 APPLIC TOPICAL ×4 (08:59→20:55)
--- NOTE | 2020-03-20 11:19 | PM.IMPN ---
Progress Note: A&P Assessment and Plan (1) Acute respiratory failure with hypoxia: Code(s): J96.01 - Acute respiratory failure with hypoxia Status: Acute Assessment and Plan: Due to COVID-19. Continue supportive care. Able to wean FiO2 and PEEP down to 10. D dimer trending down, on high dose lovenox. (2) Shock: Code(s): R57.9 - Shock, unspecified Status: Acute Assessment and Plan: Patient hypothermic and hypotensive. Hypotension treated with Levophed. Patient has been stabilized and able to wean off the Levophed on 03/17/20. (3) COVID-19 virus infection: Code(s): U07.1 - COVID-19 Status: Acute Assessment and Plan: Positive COVID-19 testing on 03/07/2020. Received convalescent plasma 03/14 and also remdesivir. Dexamethasone day #6 of 10. (4) Multiple sclerosis: Code(s): G35 - Multiple sclerosis Status: Chronic Assessment and Plan: Stable. Will need PT/OT after extubation. (5) Depression: Qualifiers: Depression Type: unspecified Qualified Code(s): F32.9 - Major depressive disorder, single episode, unspecified Code(s): F32.9 - Major depressive disorder, single episode, unspecified Status: Chronic Assessment and Plan: Stable.Continue citalopram via NG (6) Hypothyroidism, unspecified: Qualifiers: Hypothyroidism type: unspecified Qualified Code(s): E03.9 - Hypothyroidism, unspecified Code(s): E03.9 - Hypothyroidism, unspecified Status: Chronic Assessment and Plan: Stable. Continue levothyroxine via NG (7) DVT prophylaxis: Code(s): Z29.9 - Encounter for prophylactic measures, unspecified Status: Acute Assessment and Plan: Lovenox on high intensity dose. Subjective Date/time seen: Pt seen and examined , remains intubated. 03/20/20 11:19 Exam Const: Other: Sedated but open her eyes Neck: Neck: supple and no JVD Resp: Auscultation: rhonchi and diminished lung sounds Cardio: Rate: regular rate Rhythm: regular rhythm GI: Auscultation: normal bowel sounds Other: Non distended, does not seem tender. Neuro: Other: Sedated but arouses. Extrem: Other: No edema Objective Data Vital Signs Vital Signs: Vital Signs - 24 hr 03/19/20 12:00 03/19/20 14:00 03/19/20 15:04 Temperature 99.2 F 99.1 F Pulse Rate 54 L 58 L 60 Respiratory Rate 25 H 25 H 25 H Blood Pressure 129/52 L 135/62 Pulse Oximetry 97 97 94 03/19/20 15:14 03/19/20 16:00 03/19/20 17:21 Temperature 98.8 F Pulse Rate 66 59 L 70 Respiratory Rate 25 H 25 H Blood Pressure 114/57 L Pulse Oximetry 97 96 03/19/20 17:55 03/19/20 18:00 03/19/20 19:38 Temperature 98.8 F Pulse Rate 55 L 52 L 59 L Respiratory Rate 25 H 25 H Blood Pressure 132/63 Pulse Oximetry 97 03/19/20 20:00 03/19/20 21:24 03/19/20 21:31 Temperature 99.3 F Pulse Rate 60 59 L 56 L Respiratory Rate 25 H 25 H 25 H Blood Pressure 134/63 Pulse Oximetry 97 98 03/19/20 21:37 03/19/20 22:00 03/19/20 22:37 Temperature 99.5 F 99.5 F 99.4 F Pulse Rate 53 L Respiratory Rate 25 H Blood Pressure 113/47 L Pulse Oximetry 96 03/19/20 23:10 03/19/20 23:30 03/19/20 23:38 Temperature Pulse Rate 57 L 56 L 56 L Respiratory Rate 25 H 25 H Blood Pressure Pulse Oximetry 96 97 03/20/20 00:00 03/20/20 02:00 03/20/20 02:37 Temperature 99.5 F 99.3 F Pulse Rate 56 L 62 54 L Respiratory Rate 96 H 25 H 25 H Blood Pressure 119/54 L 118/57 L Pulse Oximetry 25 L 96 03/20/20 02:40 03/20/20 02:43 03/20/20 03:32 Temperature Pulse Rate 56 L 57 L 83 Respiratory Rate 25 H 25 H Blood Pressure Pulse Oximetry 97 97 03/20/20 04:00 03/20/20 04:06 03/20/20 05:31 Temperature 99.3 F Pulse Rate 64 58 L 63 Respiratory Rate 25 H 25 H Blood Pressure 132/69 Pulse Oximetry 98 98 03/20/20 06:00 03/20/20 08:00 03/20/20 08:18 Te
[2020-03-20 11:40] LABS: Glucose Point of Care 183 (65-105)
--- NOTE | 2020-03-20 12:03 | PCDIET ---
ICU Rounding Note: Patient continues on Vital 1.5 at 40mL/hr with Pro-Stat flush BID. Residuals 240mL and below with no issues, per nursing. Last recorded weight is 80.9kg which is increased from last review. +I/O. Bowel Motility: No documented BM as of yet. Discussed during rounds. Labs Reviewed: Cl (108), BUN (33), Cr (0.5), Alb (2.7) Meds Noted: Albuterol, Novolog, Versed, Miralax, Decadron, Atrovent, Protonix, Vitamin D Additional Notes: No documented skin breakdown. Following daily in ICU rounds. Assessing/reassessing every Friday/Friday.
[2020-03-20] MEDS: ACETAMINOPHEN ELIXIR 325 MG/10.15 ML UDC 650 MG PO ×2 (12:11→20:54)
--- NOTE | 2020-03-20 13:48 | WPDINTPN ---
Progress Note: A&P Assessment and Plan (1) Acute respiratory failure with hypoxia: Code(s): J96.01 - Acute respiratory failure with hypoxia Status: Acute Assessment and Plan: acute respiratory failure likely secondary to COVID-19 pneumonia. Patient intubated on 03/15/2020 - chest x-ray and ABGs reviewed, currently on 40% FiO2 and peep of 10 - continue CMV mode of ventilation, low tidal volume strategy to avoid volume trauma - continue Bronchodilators - on Versed infusion for sedation, maintain RASS of 0 to -1, daily sedation vacation. Will discontinue Versed infusion altogether. If needed will start Precedex - patient opens her eyes but does not track or blink to threat, ammonia levels are normal, (2) Shock: Code(s): R57.9 - Shock, unspecified Status: Acute Assessment and Plan: RESOLVED patient was given small fluid boluses last night during intubation. off Levophed since 03/17/2020 in the evening - patient hypothermic, blankets were placed on the patient, Lyons with temp probe - patient is on Decadron not on IV fluids (3) COVID-19 virus infection: Code(s): U07.1 - COVID-19 Status: Acute Assessment and Plan: patient was tested positive for COVID-19 on 03/07/2020 - continue dexamethasone - status post Remdesivir course - patient received 1 unit of convalescent plasma 03/14 - monitor inflammatory markers (4) Multiple sclerosis: Code(s): G35 - Multiple sclerosis Status: Chronic Assessment and Plan: continue Dalfampridine, Modafinil (5) Encephalopathy: Code(s): G93.40 - Encephalopathy, unspecified Status: Acute Assessment and Plan: patient with encephalopathy, of fentanyl infusion, currently on Versed 1 mg/hr infusion .- CT scan of the head 03/19/2020: 1. No acute intracranial process. 2. Age-related changes including mild diffuse lung loss and mild scattered white matter hypoattenuation consistent with chronic small vessel ischemic disease. - will turn off all sedation, and if required will start Precedex (6) Dietary counseling and surveillance: Code(s): Z71.3 - Dietary counseling and surveillance Status: Acute Assessment and Plan: patient tolerating tube feeds, last bowel movement 03/14/2020 - continue MiraLax - stress ulcer prophylaxis: Protonix (7) DVT prophylaxis: Code(s): Z29.9 - Encounter for prophylactic measures, unspecified Status: Acute Assessment and Plan: patient is currently on subcutaneous Lovenox at 1 milligram/kg Q day. Additional Plan Code Status - Full Code Critical care time spent: 32 minutes Due to a high probability of clinically significant, life threatening deterioration, the patient required my highest level of preparedness to intervene emergently and I personally spent this critical care time directly and personally managing the patient. This critical care time included obtaining a history; examining the patient; pulse oximetry; ordering and review of studies; arranging urgent treatment with development of a management plan; evaluation of patient's response to treatment; frequent reassessment; and discussions with other providers. It was exclusive of separately billable procedures and treating other patients and teaching time. Please see Assessment and Plan section and the rest of the note for further information on patient assessment and treatment Subjective Date/time seen: 03/20/20 13:48 Interval history: Reason for consult: COVID-19 pneumonia, acute respiratory failure, shock, multiple sclerosis - off Levophed since 03/17/2020 in the evening 03/20/2020: Patient remains intubated on CMV mode of ventilation, 40% FiO2 and peep of 10. Urine output has been adequate, patient is afebrile, on Versed 1 mg /hour infusion for sedation. Patient only opens her eyes but does not track, does not blink to threat to follows simple commands. Minimal
[2020-03-20 17:18] LABS: Glucose Point of Care 198 (65-105)
[2020-03-21] VITALS (32 sets, daily range): BP systolic 114–146; BP diastolic 53–83; PULSE 71–116; RESP 21–28; TEMP 37.3–37.8; O2SAT 3–97
[2020-03-21 00:44] LABS: Glucose Point of Care 134 (65-105)
[2020-03-21] MEDS: IPRATROPIUM BR 0.02% INH SOLN 0.5 MG/2.5 ML VIAL INHALATION ×4 (02:30→19:38)
[2020-03-21] MEDS: ALBUTEROL SULFATE NEB 2.5 MG/0.5 ML INH INHALATION ×4 (02:30→19:38)
[2020-03-21 04:32] LABS: Carboxyhemoglobin 0.3 % THb (0-2.0); Device VENTILATOR; Fractional Inspired Oxygen 40 %; HCO3 ABG 26.4 mEq/l (22.0-26.0); Methemoglobin ABG 0.1 %THb (0-1.5); Modified Allen's Test Pass; Oxygen Content ABG 16.3 %vol (16.0-22.0); Oxygen Saturation ABG 92.6 % (95.0-100.0); PCO2 ABG 36.3 mmHg (35.0-45.0); PO2 ABG 59.5 mmHg (80.0-100.0); PO2 FiO2 Ratio Arterial Blood 1.49 %; Reduced Hemoglobin 9.6 %THb (0-5.0); Site Drawn LEFT RADIAL; Total Hemoglobin 12.9 g/dL (12.0-18.0)
[2020-03-21 04:33] LABS: Arterial Blood Gas PEEP 10 cmH2O; Arterial Blood Gas Tidal Volume 380 ml; Arterial Blood Gas Vent Mode CMV; Arterial Blood Gas Ventilator rate 22 /MIN
[2020-03-21] MEDS: ACETAMINOPHEN ELIXIR 325 MG/10.15 ML UDC 650 MG PO ×2 (04:45→20:24)
[2020-03-21] MEDS: CENTRAL LINE FLUSH 10 ML IV PUSH ×4 (04:46→20:24)
[2020-03-21] MEDS: LEVOTHYROXINE SODIUM 100 MCG TABLET PO (04:46)
[2020-03-21 05:08] LABS: Hematocrit 33.9 % (37.0-47.0); Hemoglobin 10.7 g/dL (12.0-15.0); Mean Corpuscular HGB Conc 31.6 g/dl (32-36); Mean Corpuscular Hemoglobin 29.7 pg (26-34); Mean Corpuscular Volume 94.2 fl (80-100); Mean Platelet Volume 9.5 fl (7.4-10.4); Platelet Count Result 354 k/mm3 (150-375); Red Cell Distribution Width 13.5 % (11.5-14.5)
[2020-03-21 05:26] LABS: Alanine Aminotransferase 43 U/L (4-35); Albumin Level 2.8 g/dL (3.5-5.1); Alkaline Phosphatase 60 U/L (38-126); Anion Gap 4 mmol/L (8-16); Aspartate Amino Transferase 38 U/L (14-36); Bilirubin,Total 0.1 mg/dL (0.2-1.3); Blood Urea Nitrogen 29 mg/dL (7-17); Calcium 8.3 mg/dL (8.4-10.2); Carbon Dioxide 32 mmol/L (22-30); Chloride 107 mmol/L (98-107); Estimated CRCL calculation 102 ml/min; Estimated Glomerular Filt Rate > 60; Glucose 146 mg/dL (65-105); Magnesium 2.2 mg/dL (1.6-2.3); Potassium 3.8 mmol/L (3.4-5.0); Sodium 143 mmol/L (137-145)
[2020-03-21] MEDS: PANTOPRAZOLE SODIUM IV 40 MG VIAL IV PUSH (08:18)
[2020-03-21] MEDS: polyethylene glycoL 3350 17 GM POWD.PACK FEED TUBE (08:18)
[2020-03-21] MEDS: CITALOPRAM HYDROBROMIDE 20 MG TABLET 40 MG PO (08:19)
[2020-03-21] MEDS: SOLIFENACIN 5 MG TABLET PO (08:19)
[2020-03-21] MEDS: ENOXAPARIN 80 MG/0.8 ML SYRINGE 75 MG SUB-Q (08:19)
[2020-03-21] MEDS: CHOLECALCIFEROL 1,000 UNITS TABLET 2000 UNITS PO (08:19)
[2020-03-21] MEDS: TRIAMCINOLONE ACET 0.1% CREAM 15 GM TUBE 1 APPLIC TOPICAL ×4 (08:20→20:24)
[2020-03-21 08:31] LABS: Add Urine Microscopic? YES; Appearance Urine Clear (Clear); Bilirubin Urine Negative (Negative); Blood Urine Negative (Negative); Color Urine Yellow (Yellow); Glucose Urine UA 1+ mg/dL (Negative); Ketones Urine Negative (Negative); Leukocyte Esterase Ur 2+ LEU/UL (NEGATIVE); Mucus Urine Few /lpf; Nitrate Urine Negative (Negative); Protein Urine 1+ mg/dL (Negative); Squamous Epithelial Cell Urine Occasional /hpf (Few); WBC Urine 16-20 /hpf (0-3)
[2020-03-21 08:36] LABS: Specific Grav Ur 1.035 (1.001-1.035)
--- NOTE | 2020-03-21 09:14 | WPDINTPN ---
Progress Note: A&P Assessment and Plan (1) Acute respiratory failure with hypoxia: Code(s): J96.01 - Acute respiratory failure with hypoxia Status: Acute Assessment and Plan: acute respiratory failure likely secondary to COVID-19 pneumonia. Patient intubated on 03/15/2020 - chest x-ray and ABGs reviewed, currently on 45% FiO2 and peep of 10 - continue CMV mode of ventilation, low tidal volume strategy to avoid volume trauma - continue Bronchodilators - patient off all sedation, will start Precedex if necessary (2) Shock: Code(s): R57.9 - Shock, unspecified Status: Acute Assessment and Plan: RESOLVED patient was given small fluid boluses last night during intubation. off Levophed since 03/17/2020 in the evening - patient hypothermic, blankets were placed on the patient, Lyons with temp probe - patient is on Decadron - continues to have leukocytosis which could be possibly secondary to dexamethasone - patient with low-grade fevers, will obtain panculture (3) COVID-19 virus infection: Code(s): U07.1 - COVID-19 Status: Acute Assessment and Plan: patient was tested positive for COVID-19 on 03/07/2020 - continue dexamethasone - status post Remdesivir course - patient received 1 unit of convalescent plasma 03/14 - monitor inflammatory markers (4) Multiple sclerosis: Code(s): G35 - Multiple sclerosis Status: Chronic Assessment and Plan: Dalfampridine, Modafinil on hold (5) Encephalopathy: Code(s): G93.40 - Encephalopathy, unspecified Status: Acute Assessment and Plan: resolved: patient more awake, alert follows simple commands in all extremities. OFF ALL SEDATION .- CT scan of the head 03/19/2020: 1. No acute intracranial process. 2. Age-related changes including mild diffuse lung loss and mild scattered white matter hypoattenuation consistent with chronic small vessel ischemic disease. (6) Dietary counseling and surveillance: Code(s): Z71.3 - Dietary counseling and surveillance Status: Acute Assessment and Plan: patient tolerating tube feeds, last bowel movement 03/14/2020 - continue MiraLax - stress ulcer prophylaxis: Protonix (7) DVT prophylaxis: Code(s): Z29.9 - Encounter for prophylactic measures, unspecified Status: Acute Assessment and Plan: patient is currently on subcutaneous Lovenox at 1 milligram/kg Q day. Additional Plan Code Status - Full Code Critical care time spent: 32 minutes Due to a high probability of clinically significant, life threatening deterioration, the patient required my highest level of preparedness to intervene emergently and I personally spent this critical care time directly and personally managing the patient. This critical care time included obtaining a history; examining the patient; pulse oximetry; ordering and review of studies; arranging urgent treatment with development of a management plan; evaluation of patient's response to treatment; frequent reassessment; and discussions with other providers. It was exclusive of separately billable procedures and treating other patients and teaching time. Please see Assessment and Plan section and the rest of the note for further information on patient assessment and treatment Subjective Date/time seen: 03/21/20 09:14 Interval history: Reason for consult: COVID-19 pneumonia, acute respiratory failure, shock, multiple sclerosis - off Levophed since 03/17/2020 in the evening 03/21/2020: Patient remains intubated, on CMV mode of ventilation, 45% FiO2, peep of 10. Patient is off all sedation. Is awake, alert and follows simple commands and nods to questions appropriately. Urine output has been adequate. T-max 100.1. Tolerating tube feeds Review of Systems Review of Systems: ROS unobtainable: Yes unobtainable due to endotracheal tube and unobtainable due to mental status Exam
[2020-03-21 12:52] LABS: Glucose Point of Care 180 (65-105)
--- NOTE | 2020-03-21 13:25 | PCDIET ---
Nutrition Follow-Up Complete: Nutrition Diagnosis: Inadequate oral intake related to oral intubation as evidenced by NPO status. Nutrition Goal: Patient to meet estimated nutrition needs. Goal met. Patient tolerating Vital 1.5 with Pro-Stat flush BID. No issues reported. Last recorded weight is 81.8 kg which is increased from last review. Slightly positive I/O noted. Bowel Motility: RN reports liquid BM x 2 today with some solid disimpaction. Patient on Miralax daily. Labs Reviewed: Hgb (10.7), Hct (33.9), Glu (146), BUN (29), Cr (0.5), Alb (2.8) Meds Noted: Synthroid, Protonix, Miralax, Albuterol, Decadron, Novolog, Atrovent Additional Notes: Preventative Mepilex on coccyx, but no skin breakdown reported. Hands somewhat edematous, per nursing. Recommend continuing tube feeding and monitoring with same goal. Nutrition Monitoring and Evaluation: Follow up every Friday/Friday. Follow daily in ICU rounds.
--- NOTE | 2020-03-21 14:17 | PM.IMPN ---
Progress Note: A&P Assessment and Plan (1) Acute respiratory failure with hypoxia: Code(s): J96.01 - Acute respiratory failure with hypoxia Status: Acute Assessment and Plan: Due to COVID-19. Continue supportive care. Able to wean FiO2 and PEEP down to 10. D dimer trending down, on high dose lovenox. (2) Shock: Code(s): R57.9 - Shock, unspecified Status: Acute Assessment and Plan: Patient hypothermic and hypotensive. Hypotension treated with Levophed. Patient has been stabilized and able to wean off the Levophed on 03/17/20. (3) COVID-19 virus infection: Code(s): U07.1 - COVID-19 Status: Acute Assessment and Plan: Positive COVID-19 testing on 03/07/2020. Received convalescent plasma 03/14 and also remdesivir. Dexamethasone day #7 of 10. (4) Multiple sclerosis: Code(s): G35 - Multiple sclerosis Status: Chronic Assessment and Plan: Stable. Will need PT/OT after extubation. (5) Depression: Qualifiers: Depression Type: unspecified Qualified Code(s): F32.9 - Major depressive disorder, single episode, unspecified Code(s): F32.9 - Major depressive disorder, single episode, unspecified Status: Chronic Assessment and Plan: Stable.Continue citalopram via NG (6) Hypothyroidism, unspecified: Qualifiers: Hypothyroidism type: unspecified Qualified Code(s): E03.9 - Hypothyroidism, unspecified Code(s): E03.9 - Hypothyroidism, unspecified Status: Chronic Assessment and Plan: Stable. Continue levothyroxine via NG (7) DVT prophylaxis: Code(s): Z29.9 - Encounter for prophylactic measures, unspecified Status: Acute Assessment and Plan: Lovenox on high intensity dose. Subjective Date/time seen: Off sedation, she is following commands. 03/21/20 14:17 Exam Const: General: no acute distress Other: Off sedation but intubated. Following commands. Eyes: Pupils: Equal, round and reactive pupils present Neck: Neck: supple and no JVD Resp: Auscultation: rhonchi and diminished lung sounds Cardio: Rate: regular rate Rhythm: regular rhythm GI: Auscultation: normal bowel sounds Other: No distention Neuro: Motor exam (neuro): Normal motor muscle tone present throughout Other: Follow commands, moves extremities. Objective Data Vital Signs Vital Signs: Vital Signs - 24 hr 03/20/20 16:00 03/20/20 16:51 03/20/20 18:00 Temperature 99.9 F H Pulse Rate 104 H 104 H 69 Respiratory Rate 22 H 22 H Blood Pressure 111/54 L 115/56 L Pulse Oximetry 94 94 92 03/20/20 20:00 03/20/20 20:21 03/20/20 20:54 Temperature 99.7 F H 99.7 F H Pulse Rate 87 83 Respiratory Rate 26 H 26 H Blood Pressure 138/73 Pulse Oximetry 93 93 03/20/20 21:24 03/20/20 22:00 03/20/20 23:25 Temperature 99.6 F 99.6 F Pulse Rate 69 73 Respiratory Rate 23 H 24 H Blood Pressure 131/70 Pulse Oximetry 94 94 03/20/20 23:34 03/21/20 00:00 03/21/20 02:00 Temperature 99.6 F 99.6 F Pulse Rate 76 75 73 Respiratory Rate 23 H 22 H Blood Pressure 131/68 124/66 Pulse Oximetry 95 94 94 03/21/20 02:30 03/21/20 02:32 03/21/20 02:44 Temperature Pulse Rate 71 72 77 Respiratory Rate 24 H 24 H Blood Pressure Pulse Oximetry 93 03/21/20 04:00 03/21/20 04:20 03/21/20 04:45 Temperature 100.1 F H 100.1 F H Pulse Rate 73 73 Respiratory Rate 22 H Blood Pressure 121/83 Pulse Oximetry 95 3 L 03/21/20 06:00 03/21/20 08:00 03/21/20 08:01 Temperature 99.9 F H 99.6 F Pulse Rate 72 75 73 Respiratory Rate 22 H 24 H Blood Pressure 114/53 L 118/60 Pulse Oximetry 96 95 96 03/21/20 08:33 03/21/20 08:45 03/21/20 10:00 Temperature 99.4 F Pulse Rate 78 77 87 Respiratory Rate 21 H 21 H 24 H Blood Pressure 140/66 Pulse Oximetry 94 94 03/21/20 11:03 03/21/20 12:00 Temperature 99.1 F Pulse Rate 82 82 Respiratory R
[2020-03-21 18:57] LABS: Glucose Point of Care 198 (65-105)
[2020-03-22] VITALS (36 sets, daily range): BP systolic 104–162; BP diastolic 52–118; PULSE 63–137; RESP 24–29; TEMP 37.3–38.1; O2SAT 88–96
[2020-03-22 00:25] LABS: Glucose Point of Care 118 (65-105)
[2020-03-22] MEDS: ACETAMINOPHEN ELIXIR 325 MG/10.15 ML UDC 650 MG PO ×4 (01:35→19:43)
[2020-03-22] MEDS: IPRATROPIUM BR 0.02% INH SOLN 0.5 MG/2.5 ML VIAL INHALATION ×4 (01:43→20:32)
[2020-03-22] MEDS: ALBUTEROL SULFATE NEB 2.5 MG/0.5 ML INH INHALATION ×4 (01:43→20:32)
[2020-03-22 04:30] LABS: Alveolar/Arterial O2 Gradient 172.4 mmHg; Base Excess ABG 3.8 mEq/l (+/-2.0); Carboxyhemoglobin 0.3 % THb (0-2.0); Fractional Inspired Oxygen 40 %; Methemoglobin ABG 0.1 %THb (0-1.5); Oxygen Saturation ABG 94.3 % (95.0-100.0); Oxyhemoglobin 91.6 % THb (90.0-100.0); PCO2 ABG 35.7 mmHg (35.0-45.0); PO2 ABG 64.3 mmHg (80.0-100.0); PO2 FiO2 Ratio Arterial Blood 1.61 %; Total Hemoglobin 11.6 g/dL (12.0-18.0); pH ABG 7.497 (7.350-7.450)
[2020-03-22 04:32] LABS: Arterial Blood Gas Ventilator rate 22 /MIN; Device VENTILATOR; Modified Allen's Test Unable to perform; Site Drawn LEFT RADIAL
[2020-03-22 04:33] LABS: Arterial Blood Gas PEEP 5 cmH2O; Arterial Blood Gas Tidal Volume 380 ml; Arterial Blood Gas Vent Mode CMV
[2020-03-22 04:44] LABS: Basophils Absolute Auto 0.1 K/mm3 (0.0-0.1); Basophils Percent Auto 0.3 % (0.2-1.2); Eosinophils Absolute Auto 0.1 K/mm3 (0-0.3); Eosinophils Percent Auto 0.3 % (0-4.4); Hematocrit 33.4 % (37.0-47.0); Hemoglobin 10.6 g/dL (12.0-15.0); Immature Granulocyte Absolute 0.83 K/mm3 (0.00-0.031); Immature Granulocyte Percent A 3.5 % (0-0.5); Lymphocytes Absolute Auto 1.04 K/mm3 (0.9-3.2); Lymphocytes Percent Auto 4.4 % (18.3-44.2); Mean Corpuscular HGB Conc 31.7 g/dl (32-36); Mean Corpuscular Hemoglobin 30.1 pg (26-34); Mean Corpuscular Volume 94.9 fl (80-100); Mean Platelet Volume 9.7 fl (7.4-10.4); Monocytes Absolute Auto 1.2 K/mm3 (0.1-0.6); Neutrophils Absolute Auto 20.7 K/mm3 (1.3-6.7); Neutrophils Percent Auto 86.5 % (45.5-73.1); Platelet Count Result 344 k/mm3 (150-375); Red Blood Count 3.52 M/mm3 (4.2-5.4); Red Cell Distribution Width 13.6 % (11.5-14.5); White Blood Count 23.9 K/mm3 (4.5-10.0)
[2020-03-22] MEDS: LEVOTHYROXINE SODIUM 100 MCG TABLET PO (04:44)
[2020-03-22] MEDS: CENTRAL LINE FLUSH 10 ML IV PUSH ×3 (04:44→19:47)
[2020-03-22 04:56] LABS: Anion Gap 4 mmol/L (8-16); Blood Urea Nitrogen 27 mg/dL (7-17); Calcium 8.3 mg/dL (8.4-10.2); Carbon Dioxide 32 mmol/L (22-30); Chloride 104 mmol/L (98-107); Estimated CRCL calculation 125 ml/min; Estimated Glomerular Filt Rate > 60; Glucose 147 mg/dL (65-105); Magnesium 2.1 mg/dL (1.6-2.3); Potassium 3.8 mmol/L (3.4-5.0); Sodium 140 mmol/L (137-145)
[2020-03-22] MEDS: SOLIFENACIN 5 MG TABLET PO (07:52)
[2020-03-22] MEDS: FUROSEMIDE INJ 40 MG/4 ML VIAL IV PUSH (07:52)
[2020-03-22] MEDS: CHOLECALCIFEROL 1,000 UNITS TABLET 2000 UNITS PO (07:52)
[2020-03-22] MEDS: CITALOPRAM HYDROBROMIDE 20 MG TABLET 40 MG PO (07:52)
[2020-03-22] MEDS: ENOXAPARIN 80 MG/0.8 ML SYRINGE 75 MG SUB-Q (07:52)
[2020-03-22] MEDS: PANTOPRAZOLE SODIUM IV 40 MG VIAL IV PUSH (07:52)
[2020-03-22] MEDS: TRIAMCINOLONE ACET 0.1% CREAM 15 GM TUBE 1 APPLIC TOPICAL ×4 (07:53→19:47)
--- NOTE | 2020-03-22 09:42 | WPDINTPN ---
Progress Note: A&P Assessment and Plan (1) Acute respiratory failure with hypoxia: Code(s): J96.01 - Acute respiratory failure with hypoxia Status: Acute Assessment and Plan: acute respiratory failure likely secondary to COVID-19 pneumonia. Patient intubated on 03/15/2020 - chest x-ray and ABGs reviewed, currently on 45% FiO2 and peep of 10 - patient with elevated peak pressures, likely due to mucus plug, decreased redness on the left side, chest x-ray was ordered stat. Patient placed on pressure control ventilation much improvement in her peak pressures, adequate tidal volume. Patient's blood pressures, heart rate wall improved after the mucus was suctioned out. - continue Bronchodilators - patient off all sedation, will start Precedex if necessary (2) Shock: Code(s): R57.9 - Shock, unspecified Status: Acute Assessment and Plan: RESOLVED patient was given small fluid boluses last night during intubation. off Levophed since 03/17/2020 in the evening - patient hypothermic, blankets were placed on the patient, [place] with temp probe - patient is on Decadron - continues to have leukocytosis which could be possibly secondary to dexamethasone - patient with low-grade fevers, will obtain panculture - Will obtain lower extremity venous Dopplers (3) COVID-19 virus infection: Code(s): U07.1 - COVID-19 Status: Acute Assessment and Plan: patient was tested positive for COVID-19 on 03/07/2020 - continue dexamethasone - status post Remdesivir course - patient received 1 unit of convalescent plasma 03/14 - monitor inflammatory markers (4) Multiple sclerosis: Code(s): G35 - Multiple sclerosis Status: Chronic Assessment and Plan: Dalfampridine, Modafinil on hold (5) Encephalopathy: Code(s): G93.40 - Encephalopathy, unspecified Status: Acute Assessment and Plan: resolved: patient more awake, alert follows simple commands in all extremities. OFF ALL SEDATION .- CT scan of the head 03/19/2020: 1. No acute intracranial process. 2. Age-related changes including mild diffuse lung loss and mild scattered white matter hypoattenuation consistent with chronic small vessel ischemic disease. (6) Dietary counseling and surveillance: Code(s): Z71.3 - Dietary counseling and surveillance Status: Acute Assessment and Plan: patient tolerating tube feeds, last bowel movement 03/14/2020 - continue MiraLax - stress ulcer prophylaxis: Protonix (7) DVT prophylaxis: Code(s): Z29.9 - Encounter for prophylactic measures, unspecified Status: Acute Assessment and Plan: patient is currently on subcutaneous Lovenox at 1 milligram/kg Q day. Additional Plan updated patient with her condition and plan of care. Code Status - Full Code Critical care time spent: 34 minutes Due to a high probability of clinically significant, life threatening deterioration, the patient required my highest level of preparedness to intervene emergently and I personally spent this critical care time directly and personally managing the patient. This critical care time included obtaining a history; examining the patient; pulse oximetry; ordering and review of studies; arranging urgent treatment with development of a management plan; evaluation of patient's response to treatment; frequent reassessment; and discussions with other providers. It was exclusive of separately billable procedures and treating other patients and teaching time. Please see Assessment and Plan section and the rest of the note for further information on patient assessment and treatment Subjective Date/time seen: 03/22/20 09:42 Interval history: Reason for consult: COVID-19 pneumonia, acute respiratory failure, shock, multiple sclerosis - off Levophed since 03/17/2020 in the evening 01/21/2020: Patient remains intubated on CMV mode of ventilation,
--- NOTE | 2020-03-22 11:15 | PCDIET ---
ICU Rounding Note: Tube feeding held this morning for SBT. MD ordered to resume tube feedings, given no plan for extubation. Vital 1.5 at 40mL/hr with Pro-Stat BID to resume. Last recorded weight is 82.5kg which is increased from last review. I/O slightly negative. Bowel Motility: RN reports 4 liquid BMs today. Miralax held. Labs Reviewed: Hgb (10.6), Hct (33.4), Glu (147), BUN (27), Cr (0.4), Ca (8.3) Meds Noted: Albuterol, Novolog, Decadron, Atrovent, Vitamin D, Precedex, Protonix, Lasix Additional Notes: No reported skin breakdown. Following daily in ICU rounds. Assessing/reassessing every Friday/Friday.
[2020-03-22] MEDS: INSULIN ASPART (*BKC) 100 UNITS/ML SUB-Q ×2 (12:05→17:08)
[2020-03-22 12:16] LABS: Glucose Point of Care 205 (65-105)
--- NOTE | 2020-03-22 13:44 | PM.IMPN ---
Progress Note: A&P Assessment and Plan (1) Acute respiratory failure with hypoxia: Code(s): J96.01 - Acute respiratory failure with hypoxia Status: Acute Assessment and Plan: Due to COVID-19. Continue supportive care on mechanical ventilation. D dimer trending down, venous US negative for DVT on high dose lovenox. (2) Shock: Code(s): R57.9 - Shock, unspecified Status: Acute Assessment and Plan: Patient hypothermic and hypotensive. Hypotension treated with Levophed. Patient has been stabilized and able to wean off the Levophed on 03/17/20. (3) COVID-19 virus infection: Code(s): U07.1 - COVID-19 Status: Acute Assessment and Plan: Positive COVID-19 testing on 03/07/2020. Received convalescent plasma 03/14 and also remdesivir. Dexamethasone day #8 of 10. She still having fever and significant leukocytosis , consider antibiotics for possible concomitant bacterial PNA if she does not improve. (4) Multiple sclerosis: Code(s): G35 - Multiple sclerosis Status: Chronic Assessment and Plan: Stable. Will need PT/OT after extubation. (5) Depression: Qualifiers: Depression Type: unspecified Qualified Code(s): F32.9 - Major depressive disorder, single episode, unspecified Code(s): F32.9 - Major depressive disorder, single episode, unspecified Status: Chronic Assessment and Plan: Stable.Continue citalopram via NG (6) Hypothyroidism, unspecified: Qualifiers: Hypothyroidism type: unspecified Qualified Code(s): E03.9 - Hypothyroidism, unspecified Code(s): E03.9 - Hypothyroidism, unspecified Status: Chronic Assessment and Plan: Stable. Continue levothyroxine via NG (7) DVT prophylaxis: Code(s): Z29.9 - Encounter for prophylactic measures, unspecified Status: Acute Assessment and Plan: Lovenox on high intensity dose. Subjective Date/time seen: Off sedation and following commands however she is tachycardic and hyperventilation for instance mild sedation is being started. 03/22/20 13:44 Exam Const: General: no acute distress Other: Off sedation but intubated. Following commands. Eyes: Pupils: Equal, round and reactive pupils present Neck: Neck: supple and no JVD Resp: Auscultation: rhonchi and diminished lung sounds Cardio: Rate: regular rate Rhythm: regular rhythm Other: Tachycardic GI: Auscultation: normal bowel sounds Other: No distention Neuro: Cranial nerves: Yes Equal, round and reactive pupils present Motor exam (neuro): Normal motor muscle tone present throughout Other: Follow commands, moves extremities. Extrem: Other: No edema Objective Data Vital Signs Vital Signs: Vital Signs - 24 hr 03/21/20 14:00 03/21/20 14:40 03/21/20 14:50 Temperature 99.3 F Pulse Rate 82 92 90 Respiratory Rate 23 H 25 H 25 H Blood Pressure 131/65 Pulse Oximetry 97 03/21/20 15:05 03/21/20 16:00 03/21/20 16:01 Temperature 99.3 F Pulse Rate 92 83 81 Respiratory Rate 25 H Blood Pressure 132/63 Pulse Oximetry 94 95 95 03/21/20 17:20 03/21/20 17:59 03/21/20 18:00 Temperature 99.1 F Pulse Rate 88 97 93 Respiratory Rate 26 H Blood Pressure 143/71 H Pulse Oximetry 96 92 03/21/20 19:38 03/21/20 19:40 03/21/20 19:47 Temperature Pulse Rate 94 93 116 H Respiratory Rate 27 H 25 H Blood Pressure Pulse Oximetry 96 03/21/20 20:00 03/21/20 21:55 03/21/20 22:00 Temperature 99.2 F 99.5 F Pulse Rate 103 H 83 90 Respiratory Rate 28 H 24 H Blood Pressure 144/66 H 135/69 Pulse Oximetry 94 93 03/21/20 22:55 03/22/20 00:00 03/22/20 01:44 Temperature 99.6 F Pulse Rate 89 88 97 Respiratory Rate 26 H 28 H Blood Pressure 139/69 Pulse Oximetry 93 92 03/22/20 01:45 03/22/20 01:49 03/22/20 02:00 Temperature 99.8 F H Pulse Rate 95 95 94 Respiratory Rate 27 H 26 H Blood Pressure
[2020-03-22 17:18] LABS: Glucose Point of Care 211 (65-105)
[2020-03-23] VITALS (35 sets, daily range): BP systolic 94–123; BP diastolic 47–62; PULSE 59–78; RESP 17–24; TEMP 37.3–37.9; O2SAT 92–98
[2020-03-23 00:16] LABS: Glucose Point of Care 141 (65-105)
[2020-03-23] MEDS: ALBUTEROL SULFATE NEB 2.5 MG/0.5 ML INH INHALATION ×4 (02:27→20:29)
[2020-03-23] MEDS: IPRATROPIUM BR 0.02% INH SOLN 0.5 MG/2.5 ML VIAL INHALATION ×4 (02:27→20:29)
[2020-03-23 04:21] LABS: Hematocrit 29.7 % (37.0-47.0); Hemoglobin 9.6 g/dL (12.0-15.0); Mean Corpuscular HGB Conc 32.3 g/dl (32-36); Mean Corpuscular Volume 92.8 fl (80-100); Mean Platelet Volume 9.8 fl (7.4-10.4); Platelet Count Result 285 k/mm3 (150-375); Red Cell Distribution Width 13.6 % (11.5-14.5); White Blood Count 19.2 K/mm3 (4.5-10.0)
[2020-03-23 04:31] LABS: Alveolar/Arterial O2 Gradient 258.3 mmHg; Base Excess ABG 3.9 mEq/l (+/-2.0); Carboxyhemoglobin 0.3 % THb (0-2.0); Fractional Inspired Oxygen 50 %; HCO3 ABG 25.8 mEq/l (22.0-26.0); Methemoglobin ABG 0.2 %THb (0-1.5); Oxygen Content ABG 16.7 %vol (16.0-22.0); Oxygen Saturation ABG 94.9 % (95.0-100.0); Oxyhemoglobin 92.2 % THb (90.0-100.0); PCO2 ABG 30.7 mmHg (35.0-45.0); PO2 ABG 63.7 mmHg (80.0-100.0); PO2 FiO2 Ratio Arterial Blood 1.27 %; Reduced Hemoglobin 7.3 %THb (0-5.0); Total Hemoglobin 12.9 g/dL (12.0-18.0)
[2020-03-23 04:36] LABS: Anion Gap 5 mmol/L (8-16); Blood Urea Nitrogen 27 mg/dL (7-17); Calcium 8.2 mg/dL (8.4-10.2); Carbon Dioxide 32 mmol/L (22-30); Chloride 100 mmol/L (98-107); Estimated CRCL calculation 100 ml/min; Estimated Glomerular Filt Rate > 60; Glucose 124 mg/dL (65-105); Magnesium 2.2 mg/dL (1.6-2.3); Potassium 3.5 mmol/L (3.4-5.0); Sodium 137 mmol/L (137-145)
[2020-03-23 04:40] LABS: Arterial Blood Gas PEEP 5 cmH2O; Arterial Blood Gas Vent Mode PRESSURE CONTROL; Arterial Blood Gas Ventilator rate 24 /MIN; Device VENTILATOR; Modified Allen's Test Pass; Site Drawn RIGHT RADIAL; pH ABG 7.543 (7.350-7.450)
[2020-03-23] MEDS: ACETAMINOPHEN ELIXIR 325 MG/10.15 ML UDC 650 MG PO (05:20)
[2020-03-23] MEDS: CENTRAL LINE FLUSH 10 ML IV PUSH ×3 (05:21→21:04)
[2020-03-23] MEDS: LEVOTHYROXINE SODIUM 100 MCG TABLET PO (05:21)
[2020-03-23] MEDS: CITALOPRAM HYDROBROMIDE 20 MG TABLET 40 MG PO (08:11)
[2020-03-23] MEDS: SOLIFENACIN 5 MG TABLET PO (08:11)
[2020-03-23] MEDS: CHOLECALCIFEROL 1,000 UNITS TABLET 2000 UNITS PO (08:11)
[2020-03-23] MEDS: PANTOPRAZOLE SODIUM IV 40 MG VIAL IV PUSH (08:12)
[2020-03-23] MEDS: ENOXAPARIN 80 MG/0.8 ML SYRINGE 75 MG SUB-Q (08:12)
[2020-03-23] MEDS: DORNASE ALFA INH SOLN 1 MG/ML 2.5 ML AMP 2.5 MG INHALATION (08:13)
[2020-03-23] MEDS: TRIAMCINOLONE ACET 0.1% CREAM 15 GM TUBE 1 APPLIC TOPICAL ×4 (08:13→21:07)
--- NOTE | 2020-03-23 11:06 | PCDIET ---
ICU Rounding Note: Patient continues to tolerate Vital 1.5 at 40mL/hr goal rate with Pro-Stat flush BID. Possible plan for extubation in next 24-48 hours. Last recorded weight is 78.0kg which is decreased from last review. -I/O. Bowel Motility: Liquid BM x 4 on 03/22/20, per RN - Miralax held today for this reason Labs Reviewed: Hgb (9.6), Hct (29.7), Glu (124), BUN (27), Cr (0.5), Ca (8.2) Meds Noted: Albuterol, Atrovent, Precedex, Novolog, Protonix, Miralax, Vitamin D Additional Notes: No documented skin breakdown. Following daily in ICU rounds. Assessing/reassessing every Friday/Friday.
--- NOTE | 2020-03-23 11:50 | WPDINTPN ---
Progress Note: A&P Assessment and Plan (1) Acute respiratory failure with hypoxia: Code(s): J96.01 - Acute respiratory failure with hypoxia Status: Acute Assessment and Plan: acute respiratory failure likely secondary to COVID-19 pneumonia. Patient intubated on 03/15/2020 - chest x-ray and ABGs reviewed, currently on 50% FiO2 and peep of 10 - peak pressure is much improved on pressure control ventilation, will place patient on ASV mode of ventilation - add Pulmozyme - continue Bronchodilators - currently on very low-dose Precedex (2) Shock: Code(s): R57.9 - Shock, unspecified Status: Acute Assessment and Plan: RESOLVED patient was given small fluid boluses last night during intubation. off Levophed since 03/17/2020 in the evening - patient is on Decadron - continues to have leukocytosis which could be possibly secondary to dexamethasone - patient with low-grade fevers, blood and urine cx negative - Sputum Cx growing GNR - will start Cefepime - Will obtain lower extremity venous Dopplers (3) COVID-19 virus infection: Code(s): U07.1 - COVID-19 Status: Acute Assessment and Plan: patient was tested positive for COVID-19 on 03/07/2020 - continue dexamethasone - status post Remdesivir course - patient received 1 unit of convalescent plasma 03/14 - monitor inflammatory markers (4) Multiple sclerosis: Code(s): G35 - Multiple sclerosis Status: Chronic Assessment and Plan: Dalfampridine, Modafinil on hold (5) Encephalopathy: Code(s): G93.40 - Encephalopathy, unspecified Status: Acute Assessment and Plan: resolved: patient more awake, alert follows simple commands in all extremities. OFF ALL SEDATION .- CT scan of the head 03/19/2020: 1. No acute intracranial process. 2. Age-related changes including mild diffuse lung loss and mild scattered white matter hypoattenuation consistent with chronic small vessel ischemic disease. (6) Dietary counseling and surveillance: Code(s): Z71.3 - Dietary counseling and surveillance Status: Acute Assessment and Plan: patient tolerating tube feeds, last bowel movement 03/14/2020 - continue MiraLax - stress ulcer prophylaxis: Protonix (7) DVT prophylaxis: Code(s): Z29.9 - Encounter for prophylactic measures, unspecified Status: Acute Assessment and Plan: patient is currently on subcutaneous Lovenox at 1 milligram/kg Q day. Additional Plan updated patient with her condition and plan of care. Code Status - Full Code Critical care time spent: 33 minutes Due to a high probability of clinically significant, life threatening deterioration, the patient required my highest level of preparedness to intervene emergently and I personally spent this critical care time directly and personally managing the patient. This critical care time included obtaining a history; examining the patient; pulse oximetry; ordering and review of studies; arranging urgent treatment with development of a management plan; evaluation of patient's response to treatment; frequent reassessment; and discussions with other providers. It was exclusive of separately billable procedures and treating other patients and teaching time. Please see Assessment and Plan section and the rest of the note for further information on patient assessment and treatment Subjective Date/time seen: 03/23/20 11:50 Interval history: Reason for consult: COVID-19 pneumonia, acute respiratory failure, shock, multiple sclerosis - off Levophed since 03/17/2020 in the evening 03/23/2020: Patient seen and examined. Is awake, alert, follows simple commands and nods to questions. He is on Precedex infusion at 0.1 mcg. Remains intubated on pressure control ventilation, 50% FiO2 and peep of 5 with adequate ABGs. Leukocytosis is improving. Patient has had adequate urine output in response to
[2020-03-23 14:19] LABS: Glucose Point of Care 195 (65-105)
--- NOTE | 2020-03-23 18:07 | PM.IMPN ---
Progress Note: A&P Assessment and Plan (1) Acute respiratory failure with hypoxia: Code(s): J96.01 - Acute respiratory failure with hypoxia Status: Acute Assessment and Plan: Due to COVID-19. Continue supportive care on mechanical ventilation. Pt is on high dose lovenox. (2) Shock: Code(s): R57.9 - Shock, unspecified Status: Acute Assessment and Plan: Hypotension treated with fluids pt is on precedex (3) COVID-19 virus infection: Code(s): U07.1 - COVID-19 Status: Acute Assessment and Plan: Positive COVID-19 testing on 03/07/2020. Received convalescent plasma 03/14 and also remdesivir. Dexamethasone day #9 of . (4) Multiple sclerosis: Code(s): G35 - Multiple sclerosis Status: Chronic Assessment and Plan: Stable. Will need PT/OT after extubation. (5) Depression: Qualifiers: Depression Type: unspecified Qualified Code(s): F32.9 - Major depressive disorder, single episode, unspecified Code(s): F32.9 - Major depressive disorder, single episode, unspecified Status: Chronic Assessment and Plan: Stable.Continue citalopram via NG (6) Hypothyroidism, unspecified: Qualifiers: Hypothyroidism type: unspecified Qualified Code(s): E03.9 - Hypothyroidism, unspecified Code(s): E03.9 - Hypothyroidism, unspecified Status: Chronic Assessment and Plan: Stable. Continue levothyroxine via NG (7) DVT prophylaxis: Code(s): Z29.9 - Encounter for prophylactic measures, unspecified Status: Acute Assessment and Plan: Lovenox on high dose Subjective Date/time seen: 03/23/20 18:07 Interval history: 64yo female with hx of MS here for acute respiratory failure related to COVID. Unfortunately, pt had to be intubated gradually improvement over past two weeks, hopeful to come off ventilator tomorrow. Review of Systems Review of Systems: ROS unobtainable: Yes unobtainable due to endotracheal tube Exam Narrative: Exam Narrative: Pt intubated and on ventilator in icu Chronically ill apearing lady Objective Data Vital Signs Vital Signs: Vital Signs - 24 hr 03/22/20 19:43 03/22/20 20:00 03/22/20 20:32 Temperature 37.9 C H 37.9 C H Pulse Rate 70 70 Respiratory Rate 25 H 24 H Blood Pressure 126/60 Pulse Oximetry 95 03/22/20 20:33 03/22/20 20:45 03/22/20 22:00 Temperature 37.8 C H Pulse Rate 68 70 64 Respiratory Rate 24 H 24 H Blood Pressure 108/57 L Pulse Oximetry 95 94 03/22/20 23:01 03/23/20 00:00 03/23/20 02:00 Temperature 37.9 C H 37.8 C H Pulse Rate 63 63 63 Respiratory Rate 24 H 21 H Blood Pressure 109/47 L 102/56 L Pulse Oximetry 93 92 93 03/23/20 02:28 03/23/20 02:38 03/23/20 04:00 Temperature 37.6 C Pulse Rate 69 74 64 Respiratory Rate 24 H 24 H 24 H Blood Pressure 97/55 L Pulse Oximetry 94 94 03/23/20 04:20 03/23/20 05:20 03/23/20 06:00 Temperature 37.7 C H 37.8 C H Pulse Rate 69 66 Respiratory Rate 24 H Blood Pressure 115/56 L Pulse Oximetry 94 98 03/23/20 06:11 03/23/20 06:20 03/23/20 08:00 Temperature 37.8 C H 37.6 C H Pulse Rate 63 60 Respiratory Rate 24 H 24 H Blood Pressure 99/57 L Pulse Oximetry 94 03/23/20 08:25 03/23/20 08:33 03/23/20 08:37 Temperature Pulse Rate 73 71 73 Respiratory Rate 17 19 Blood Pressure Pulse Oximetry 95 03/23/20 10:00 03/23/20 10:40 03/23/20 12:00 Temperature 37.6 C H 37.4 C Pulse Rate 64 78 73 Respiratory Rate 21 H 20 Blood Pressure 94/56 L 117/58 L Pulse Oximetry 93 97 97 03/23/20 14:00 03/23/20 14:01 03/23/20 14:28 Temperature 37.3 C Pulse Rate 65 65 64 Respiratory Rate 19 19 19 Blood Pressure 123/62 Pulse Oximetry 96 03/23/20 14:30 03/23/20 14:45 03/23/20 16:00 Temperature Pulse Rate 65 66 59 L Respiratory Rate 19 19 Blood Pressure Pulse Oximetry 96 92 08/2
[2020-03-23 18:31] LABS: Glucose Point of Care 181 (65-105)
[2020-03-24] VITALS (32 sets, daily range): BP systolic 103–123; BP diastolic 49–65; PULSE 62–74; RESP 15–24; TEMP 37.2–37.7; O2SAT 90–96
[2020-03-24 00:03] LABS: Glucose Point of Care 100 (65-105)
[2020-03-24] MEDS: IPRATROPIUM BR 0.02% INH SOLN 0.5 MG/2.5 ML VIAL INHALATION ×4 (02:43→20:45)
[2020-03-24] MEDS: ALBUTEROL SULFATE NEB 2.5 MG/0.5 ML INH INHALATION ×4 (02:43→20:45)
[2020-03-24 04:32] LABS: Carboxyhemoglobin 0.3 % THb (0-2.0); Fractional Inspired Oxygen 30 %; HCO3 ABG 26.6 mEq/l (22.0-26.0); Methemoglobin ABG 0.2 %THb (0-1.5); Oxygen Content ABG 13.7 %vol (16.0-22.0); Oxygen Saturation ABG 92.6 % (95.0-100.0); Oxyhemoglobin 89.2 % THb (90.0-100.0); PCO2 ABG 33.1 mmHg (35.0-45.0); Reduced Hemoglobin 10.3 %THb (0-5.0); Total Hemoglobin 10.9 g/dL (12.0-18.0)
[2020-03-24 04:34] LABS: Device VENTILATOR; Modified Allen's Test Pass; Site Drawn RIGHT RADIAL; pH ABG 7.523 (7.350-7.450)
[2020-03-24 04:35] LABS: Arterial Blood Gas Minute Volume 100 LPM; Arterial Blood Gas PEEP 5 cmH2O; Arterial Blood Gas Vent Mode ASV
[2020-03-24] MEDS: CENTRAL LINE FLUSH 10 ML IV PUSH ×3 (05:44→20:04)
[2020-03-24] MEDS: LEVOTHYROXINE SODIUM 100 MCG TABLET PO (05:46)
[2020-03-24 06:09] LABS: Basophils Percent Auto 0.2 % (0.2-1.2); Eosinophils Absolute Auto 0.1 K/mm3 (0-0.3); Eosinophils Percent Auto 0.3 % (0-4.4); Hematocrit 29.9 % (37.0-47.0); Hemoglobin 9.7 g/dL (12.0-15.0); Immature Granulocyte Absolute 0.32 K/mm3 (0.00-0.031); Lymphocytes Absolute Auto 1.55 K/mm3 (0.9-3.2); Lymphocytes Percent Auto 9.6 % (18.3-44.2); Mean Corpuscular HGB Conc 32.4 g/dl (32-36); Mean Corpuscular Volume 92.6 fl (80-100); Mean Platelet Volume 9.9 fl (7.4-10.4); Monocytes Percent Auto 6.4 % (2.6-8.5); Neutrophils Absolute Auto 13.2 K/mm3 (1.3-6.7); Neutrophils Percent Auto 81.5 % (45.5-73.1); Platelet Count Result 294 k/mm3 (150-375); Red Blood Count 3.23 M/mm3 (4.2-5.4); Red Cell Distribution Width 13.3 % (11.5-14.5); White Blood Count 16.2 K/mm3 (4.5-10.0)
[2020-03-24 06:24] LABS: Anion Gap 5 mmol/L (8-16); Blood Urea Nitrogen 27 mg/dL (7-17); Calcium 7.8 mg/dL (8.4-10.2); Carbon Dioxide 28 mmol/L (22-30); Chloride 101 mmol/L (98-107); Estimated CRCL calculation 100 ml/min; Estimated Glomerular Filt Rate > 60; Glucose 128 mg/dL (65-105); Magnesium 2.1 mg/dL (1.6-2.3); Potassium 3.4 mmol/L (3.4-5.0); Sodium 134 mmol/L (137-145)
[2020-03-24] MEDS: CITALOPRAM HYDROBROMIDE 20 MG TABLET 40 MG PO (08:34)
[2020-03-24] MEDS: SOLIFENACIN 5 MG TABLET PO (08:34)
[2020-03-24] MEDS: PANTOPRAZOLE SODIUM IV 40 MG VIAL IV PUSH (08:34)
[2020-03-24] MEDS: CHOLECALCIFEROL 1,000 UNITS TABLET 2000 UNITS PO (08:34)
[2020-03-24] MEDS: ENOXAPARIN 80 MG/0.8 ML SYRINGE 75 MG SUB-Q (08:35)
[2020-03-24] MEDS: TRIAMCINOLONE ACET 0.1% CREAM 15 GM TUBE 1 APPLIC TOPICAL ×4 (08:35→20:04)
[2020-03-24] MEDS: DORNASE ALFA INH SOLN 1 MG/ML 2.5 ML AMP 2.5 MG INHALATION ×2 (08:49→20:45)
[2020-03-24] MEDS: FUROSEMIDE INJ 40 MG/4 ML VIAL 20 MG IV PUSH (10:53)
--- NOTE | 2020-03-24 11:30 | PCDIET ---
Nutrition Follow-Up Complete: Nutrition Diagnosis: Inadequate oral intake related to oral intubation as evidenced by NPO status. Nutrition Goal: Patient to meet estimated nutrition needs. Goal met. Patient has continued to tolerate Vital 1.5 at 40mL/hr goal rate with Pro-Stat BID. RN reports tube feedings currently held for breathing trial. Tube feedings to resume if unable to extubate. Last recorded weight is 77.7 kg which is decreased from last review, but up from admission. Bowel Motility: Last documented BM on 03/22/20. Labs Reviewed: Hgb (9.7), Hct (29.9), Glu (128), BUN (27), Cr (0.5), Na (134), Ca (7.8) Meds Noted: Albuterol, Levaquin, Precedex, Novolog, Protonix, KCl, Vitamin D, Lasix Additional Notes: No reported skin breakdown. No new albumin for calcium correction. Will continue to monitor with same goal. Nutrition Monitoring and Evaluation: Follow up every Friday/Friday. Follow daily in ICU rounds.
--- NOTE | 2020-03-24 13:06 | WPDINTPN ---
Progress Note: A&P Assessment and Plan (1) Acute respiratory failure with hypoxia: Code(s): J96.01 - Acute respiratory failure with hypoxia Status: Acute Assessment and Plan: acute respiratory failure likely secondary to COVID-19 pneumonia. Patient intubated on 03/15/2020 - chest x-ray and ABGs reviewed, currently on 50% FiO2 and peep of 10 - patient remains on ASV mode of ventilation, 30% FiO2 and peep of 5. Placed patient on pressure support ventilation of 10/5. - Will diurese patient today - continue Pulmozyme - continue Bronchodilators - currently on very low-dose Precedex (2) Shock: Code(s): R57.9 - Shock, unspecified Status: Acute Assessment and Plan: RESOLVED patient was given small fluid boluses last night during intubation. off Levophed since 03/17/2020 in the evening - patient is on Decadron - continues to have leukocytosis which could be possibly secondary to dexamethasone - patient with low-grade fevers, blood and urine cx negative - Sputum Cx growing stenotrophomonas maltophilia, started patient on levofloxacin and discontinued cefepime ( patient is allergic to sulfa drugs so did not start trimethoprim sulfamethoxazole) - bilateral lower extremity venous Dopplers done on 03/22/2020 1- for DVTs bilaterally (3) COVID-19 virus infection: Code(s): U07.1 - COVID-19 Status: Acute Assessment and Plan: patient was tested positive for COVID-19 on 03/07/2020 - continue dexamethasone - status post Remdesivir course - patient received 1 unit of convalescent plasma 03/14 - monitor inflammatory markers (4) Multiple sclerosis: Code(s): G35 - Multiple sclerosis Status: Chronic Assessment and Plan: Dalfampridine, Modafinil on hold (5) Encephalopathy: Code(s): G93.40 - Encephalopathy, unspecified Status: Acute Assessment and Plan: resolved: patient more awake, alert follows simple commands in all extremities. OFF ALL SEDATION .- CT scan of the head 03/19/2020: 1. No acute intracranial process. 2. Age-related changes including mild diffuse lung loss and mild scattered white matter hypoattenuation consistent with chronic small vessel ischemic disease. (6) Dietary counseling and surveillance: Code(s): Z71.3 - Dietary counseling and surveillance Status: Acute Assessment and Plan: patient tolerating tube feeds, last bowel movement 03/14/2020 - continue MiraLax - stress ulcer prophylaxis: Protonix (7) DVT prophylaxis: Code(s): Z29.9 - Encounter for prophylactic measures, unspecified Status: Acute Assessment and Plan: patient is currently on subcutaneous Lovenox at 1 milligram/kg Q day. Additional Plan updated patient with her condition and plan of care. Code Status - Full Code Critical care time spent: 32 minutes Due to a high probability of clinically significant, life threatening deterioration, the patient required my highest level of preparedness to intervene emergently and I personally spent this critical care time directly and personally managing the patient. This critical care time included obtaining a history; examining the patient; pulse oximetry; ordering and review of studies; arranging urgent treatment with development of a management plan; evaluation of patient's response to treatment; frequent reassessment; and discussions with other providers. It was exclusive of separately billable procedures and treating other patients and teaching time. Please see Assessment and Plan section and the rest of the note for further information on patient assessment and treatment Subjective Date/time seen: 03/24/20 13:06 Interval history: Reason for consult: COVID-19 pneumonia, acute respiratory failure, shock, multiple sclerosis - off Levophed since 03/17/2020 in the evening 03/24/2020: Patient is on ASV mode of ventilation, 30% FiO2 and peep of 5. Fadi
--- NOTE | 2020-03-24 13:10 | WPDINTPN ---
Progress Note: A&P Assessment and Plan (1) Acute respiratory failure with hypoxia: Code(s): J96.01 - Acute respiratory failure with hypoxia Status: Acute Assessment and Plan: 4 acute respiratory failure likely secondary to COVID-19 pneumonia. Patient intubated on 03/15/2020 - chest x-ray and ABGs reviewed, currently on 50% FiO2 and peep of 10 - Patient remains on ASV mode of ventilation, 30% FiO2, peep of 5, tolerated pressure support ventilation 10/5 on 03/24/2020 - continue Pulmozyme - continue Bronchodilators - currently on very low-dose Precedex - will diurese patient today, will place patient on pressure support ventilation evaluate if shecould be extubated (2) Shock: Code(s): R57.9 - Shock, unspecified Status: Acute Assessment and Plan: RESOLVED patient was given small fluid boluses last night during intubation. off Levophed since 03/17/2020 in the evening - patient is on Decadron - continues to have leukocytosis which could be possibly secondary to dexamethasone - patient with low-grade fevers, blood and urine cx negative - Sputum Cx growing stenotrophomonas maltophilia, started patient on levofloxacin and discontinued cefepime ( patient is allergic to sulfa drugs so did not start trimethoprim sulfamethoxazole) - bilateral lower extremity venous Dopplers done on 03/22/2020 1- for DVTs bilaterally (3) COVID-19 virus infection: Code(s): U07.1 - COVID-19 Status: Acute Assessment and Plan: patient was tested positive for COVID-19 on 03/07/2020 - continue dexamethasone - status post Remdesivir course - patient received 1 unit of convalescent plasma 03/14 - monitor inflammatory markers (4) Multiple sclerosis: Code(s): G35 - Multiple sclerosis Status: Chronic Assessment and Plan: Dalfampridine, Modafinil on hold (5) Encephalopathy: Code(s): G93.40 - Encephalopathy, unspecified Status: Acute Assessment and Plan: resolved: patient more awake, alert follows simple commands in all extremities. OFF ALL SEDATION .- CT scan of the head 03/19/2020: 1. No acute intracranial process. 2. Age-related changes including mild diffuse lung loss and mild scattered white matter hypoattenuation consistent with chronic small vessel ischemic disease. (6) Dietary counseling and surveillance: Code(s): Z71.3 - Dietary counseling and surveillance Status: Acute Assessment and Plan: patient tolerating tube feeds, last bowel movement 03/14/2020 - continue MiraLax - stress ulcer prophylaxis: Protonix (7) DVT prophylaxis: Code(s): Z29.9 - Encounter for prophylactic measures, unspecified Status: Acute Assessment and Plan: patient is currently on subcutaneous Lovenox at 1 milligram/kg Q day. Additional Plan discussed with patient updated her with her condition and plan of care Code Status - Full Code Critical care time spent: 33 minutes Due to a high probability of clinically significant, life threatening deterioration, the patient required my highest level of preparedness to intervene emergently and I personally spent this critical care time directly and personally managing the patient. This critical care time included obtaining a history; examining the patient; pulse oximetry; ordering and review of studies; arranging urgent treatment with development of a management plan; evaluation of patient's response to treatment; frequent reassessment; and discussions with other providers. It was exclusive of separately billable procedures and treating other patients and teaching time. Please see Assessment and Plan section and the rest of the note for further information on patient assessment and treatment Subjective Date/time seen: 03/24/20 13:10 Interval history: Reason for consult: COVID-19 pneumonia, acute respiratory failure, shock, multiple sclerosis - off Levophed since 02/26
[2020-03-24 13:57] LABS: Glucose Point of Care 136 (65-105)
--- NOTE | 2020-03-24 14:35 | PM.IMPN ---
Progress Note: A&P Assessment and Plan (1) Acute respiratory failure with hypoxia: Code(s): J96.01 - Acute respiratory failure with hypoxia Status: Acute Assessment and Plan: Due to COVID-19. Continue supportive care on mechanical ventilation. Pt is on high dose lovenox. (2) Shock: Code(s): R57.9 - Shock, unspecified Status: Acute Assessment and Plan: Hypotension treated with fluids small boluses (3) COVID-19 virus infection: Code(s): U07.1 - COVID-19 Status: Acute Assessment and Plan: Positive COVID-19 testing on 03/07/2020. Received convalescent plasma 03/14 and also remdesivir. Dexamethasone day #10 of . (4) Multiple sclerosis: Code(s): G35 - Multiple sclerosis Status: Chronic Assessment and Plan: Stable. Will need PT/OT after extubation. (5) Depression: Qualifiers: Depression Type: unspecified Qualified Code(s): F32.9 - Major depressive disorder, single episode, unspecified Code(s): F32.9 - Major depressive disorder, single episode, unspecified Status: Chronic Assessment and Plan: Stable.Continue citalopram via NG (6) Hypothyroidism, unspecified: Qualifiers: Hypothyroidism type: unspecified Qualified Code(s): E03.9 - Hypothyroidism, unspecified Code(s): E03.9 - Hypothyroidism, unspecified Status: Chronic Assessment and Plan: Stable. Continue levothyroxine via NG (7) DVT prophylaxis: Code(s): Z29.9 - Encounter for prophylactic measures, unspecified Status: Acute Assessment and Plan: Lovenox on high dose (8) Encephalopathy: Code(s): G93.40 - Encephalopathy, unspecified Status: Acute Assessment and Plan: Pt is on precedex Subjective Date/time seen: 03/24/20 14:35 Interval history: 64yo female with hx of MS here for acute respiratory failure related to COVID. Unfortunately, pt had to be intubated gradually improvement over past two weeks, hopeful to come off ventilator soon Review of Systems Review of Systems: ROS unobtainable: Yes unobtainable due to endotracheal tube Exam Narrative: Exam Narrative: Pt intubated and on ventilator in icu Chronically ill appearing lady Objective Data Vital Signs Vital Signs: Vital Signs - 24 hr 03/23/20 14:45 08/27/20 16:00 03/23/20 16:16 Temperature 37.3 C Pulse Rate 66 59 L 59 L Respiratory Rate 19 19 19 Blood Pressure 103/53 L Pulse Oximetry 92 92 03/23/20 16:52 03/23/20 17:40 03/23/20 18:00 Temperature Pulse Rate 68 66 63 Respiratory Rate 20 Blood Pressure Pulse Oximetry 94 03/23/20 18:01 03/23/20 20:00 03/23/20 20:25 Temperature 37.3 C 37.6 C Pulse Rate 63 64 66 Respiratory Rate 21 H 20 19 Blood Pressure 117/57 L 116/59 L Pulse Oximetry 93 95 03/23/20 20:31 03/23/20 20:53 03/23/20 21:01 Temperature Pulse Rate 67 66 68 Respiratory Rate 19 20 Blood Pressure Pulse Oximetry 95 03/23/20 22:00 03/23/20 23:15 03/24/20 00:00 Temperature 37.6 C 37.7 C H Pulse Rate 68 68 65 Respiratory Rate 20 20 Blood Pressure 119/60 119/54 L Pulse Oximetry 93 95 96 03/24/20 02:00 03/24/20 02:44 03/24/20 02:45 Temperature 37.7 C H Pulse Rate 68 67 67 Respiratory Rate 18 19 Blood Pressure 109/52 L Pulse Oximetry 94 95 03/24/20 02:53 03/24/20 04:00 03/24/20 04:21 Temperature 37.4 C Pulse Rate 67 62 67 Respiratory Rate 19 16 Blood Pressure 107/59 L Pulse Oximetry 93 95 03/24/20 05:35 03/24/20 06:00 03/24/20 08:00 Temperature 37.5 C 37.4 C Pulse Rate 63 65 67 Respiratory Rate 15 16 19 Blood Pressure 105/50 L 114/54 L Pulse Oximetry 90 92 03/24/20 08:51 03/24/20 08:52 03/24/20 09:10 Temperature Pulse Rate 68 67 64 Respiratory Rate 20 22 H Blood Pressure Pulse Oximetry 94 03/24/20 10:00 03/24/20 11:31 03/24/20 12:00 Temperature 37.2 C Pulse
[2020-03-24 17:35] LABS: Glucose Point of Care 137 (65-105)
[2020-03-24 23:27] LABS: Glucose Point of Care 101 (65-105)
[2020-03-25] VITALS (26 sets, daily range): BP systolic 97–122; BP diastolic 45–80; PULSE 61–107; RESP 15–30; TEMP 37.3–37.7; O2SAT 90–98
[2020-03-25 04:08] LABS: Alveolar/Arterial O2 Gradient 95.5 mmHg; Base Excess ABG 2.6 mEq/l (+/-2.0); Carboxyhemoglobin 0.3 % THb (0-2.0); Fractional Inspired Oxygen 30 %; HCO3 ABG 24.7 mEq/l (22.0-26.0); Methemoglobin ABG 0.2 %THb (0-1.5); Oxygen Content ABG 15.7 %vol (16.0-22.0); Oxygen Saturation ABG 96.6 % (95.0-100.0); Oxyhemoglobin 94.4 % THb (90.0-100.0); PO2 ABG 75.6 mmHg (80.0-100.0); PO2 FiO2 Ratio Arterial Blood 2.52 %; Reduced Hemoglobin 5.1 %THb (0-5.0); Total Hemoglobin 11.8 g/dL (12.0-18.0)
[2020-03-25 04:42] LABS: Arterial Blood Gas Vent Mode ASV; Device VENTILATOR; Modified Allen's Test Pass; Site Drawn LEFT RADIAL; pH ABG 7.533 (7.350-7.450)
[2020-03-25 04:43] LABS: Arterial Blood Gas Minute Volume 6 LPM; Arterial Blood Gas PEEP 5 cmH2O
[2020-03-25] MEDS: CENTRAL LINE FLUSH 10 ML IV PUSH ×3 (04:58→20:02)
[2020-03-25 05:24] LABS: Basophils Percent Auto 0.3 % (0.2-1.2); Eosinophils Absolute Auto 0.1 K/mm3 (0-0.3); Eosinophils Percent Auto 0.7 % (0-4.4); Hematocrit 33.4 % (37.0-47.0); Hemoglobin 10.7 g/dL (12.0-15.0); Immature Granulocyte Absolute 0.27 K/mm3 (0.00-0.031); Immature Granulocyte Percent A 1.9 % (0-0.5); Lymphocytes Absolute Auto 1.74 K/mm3 (0.9-3.2); Mean Corpuscular Hemoglobin 29.6 pg (26-34); Mean Corpuscular Volume 92.3 fl (80-100); Monocytes Absolute Auto 1.3 K/mm3 (0.1-0.6); Monocytes Percent Auto 8.7 % (2.6-8.5); Neutrophils Percent Auto 76.4 % (45.5-73.1); Platelet Count Result 368 k/mm3 (150-375); Red Blood Count 3.62 M/mm3 (4.2-5.4); Red Cell Distribution Width 13.6 % (11.5-14.5); White Blood Count 14.4 K/mm3 (4.5-10.0)
[2020-03-25] MEDS: LEVOTHYROXINE SODIUM 100 MCG TABLET PO (05:33)
[2020-03-25 05:36] LABS: Alanine Aminotransferase 51 U/L (4-35); Alkaline Phosphatase 63 U/L (38-126); Anion Gap 7 mmol/L (8-16); Aspartate Amino Transferase 48 U/L (14-36); Bilirubin,Total 0.3 mg/dL (0.2-1.3); Blood Urea Nitrogen 29 mg/dL (7-17); CRP 2.3 mg/dL (<1.0); Calcium 8.2 mg/dL (8.4-10.2); Carbon Dioxide 27 mmol/L (22-30); Chloride 101 mmol/L (98-107); Estimated CRCL calculation 85 ml/min; Estimated Glomerular Filt Rate > 60; Glucose 109 mg/dL (65-105); Magnesium 2.2 mg/dL (1.6-2.3); Phosphorus 3.3 mg/dL (2.5-4.5); Potassium 3.9 mmol/L (3.4-5.0); Sodium 135 mmol/L (137-145)
[2020-03-25] MEDS: FUROSEMIDE INJ 40 MG/4 ML VIAL 20 MG IV PUSH (07:58)
[2020-03-25] MEDS: ENOXAPARIN 80 MG/0.8 ML SYRINGE 75 MG SUB-Q (08:00)
[2020-03-25] MEDS: PANTOPRAZOLE SODIUM IV 40 MG VIAL IV PUSH (08:00)
[2020-03-25] MEDS: polyethylene glycoL 3350 17 GM POWD.PACK FEED TUBE (08:01)
[2020-03-25] MEDS: SOLIFENACIN 5 MG TABLET PO (08:02)
[2020-03-25] MEDS: CHOLECALCIFEROL 1,000 UNITS TABLET 2000 UNITS PO (08:02)
[2020-03-25] MEDS: CITALOPRAM HYDROBROMIDE 20 MG TABLET 40 MG PO (08:03)
[2020-03-25] MEDS: TRIAMCINOLONE ACET 0.1% CREAM 15 GM TUBE 1 APPLIC TOPICAL ×3 (08:04→16:23)
[2020-03-25] MEDS: DORNASE ALFA INH SOLN 1 MG/ML 2.5 ML AMP 2.5 MG INHALATION ×2 (08:44→19:21)
[2020-03-25] MEDS: ALBUTEROL SULFATE NEB 2.5 MG/0.5 ML INH INHALATION ×3 (08:45→19:16)
[2020-03-25] MEDS: IPRATROPIUM BR 0.02% INH SOLN 0.5 MG/2.5 ML VIAL INHALATION ×3 (08:45→19:16)
[2020-03-25 10:23] LABS: Alveolar/Arterial O2 Gradient 118.6 mmHg; Base Excess ABG 3.6 mEq/l (+/-2.0); Fractional Inspired Oxygen 30 %; HCO3 ABG 25.5 mEq/l (22.0-26.0); Oxygen Content ABG 16.3 %vol (16.0-22.0); Oxygen Saturation ABG 93.9 % (95.0-100.0); Oxyhemoglobin 91.5 % THb (90.0-100.0); PCO2 ABG 30.3 mmHg (35.0-45.0); PO2 ABG 59.7 mmHg (80.0-100.0); PO2 FiO2 Ratio Arterial Blood 1.99 %; Total Hemoglobin 12.7 g/dL (12.0-18.0)
[2020-03-25 10:25] LABS: Device VENTILATOR; Modified Allen's Test Pass; Site Drawn RIGHT RADIAL; pH ABG 7.543 (7.350-7.450)
[2020-03-25 10:26] LABS: Arterial Blood Gas PEEP 5 cmH2O; Arterial Blood Gas Pressure Support 8 cmH2O; Arterial Blood Gas Vent Mode SPONTANEOUS; Peak Inspiratory Pressure 8 cmH2O
[2020-03-25 11:13] LABS: Glucose Point of Care 93 (65-105)
--- NOTE | 2020-03-25 11:19 | PC.NURSE ---
Updated spouse, Alden, on extubation. Verbalized patient horse and should not try to talk for a few hours. Patient does have cell phone and glasses at bedside. Encouraged to text if she wants to communicate with family.
--- NOTE | 2020-03-25 11:59 | WPDINTPN ---
Progress Note: A&P Assessment and Plan (1) Acute respiratory failure with hypoxia: Code(s): J96.01 - Acute respiratory failure with hypoxia Status: Acute Assessment and Plan: acute respiratory failure likely secondary to COVID-19 pneumonia. Patient intubated on 03/15/2020 - chest x-ray and ABGs reviewed, currently on 50% FiO2 and peep of 10 - Patient remains on ASV mode of ventilation, 30% FiO2, peep of 5, tolerated pressure support ventilation 05/01 on 03/24/2020 - continue Pulmozyme - continue Bronchodilators - currently on very low-dose Precedex - will diurese again, placed patient on pressure support ventilation 03/01, anticipate extubation today (2) Shock: Code(s): R57.9 - Shock, unspecified Status: Acute Assessment and Plan: RESOLVED patient was given small fluid boluses last night during intubation. off Levophed since 03/17/2020 in the evening - patient is on Decadron - continues to have leukocytosis which could be possibly secondary to dexamethasone - patient with low-grade fevers, blood and urine cx negative - Sputum Cx growing stenotrophomonas maltophilia, started patient on levofloxacin and discontinued cefepime ( patient is allergic to sulfa drugs so did not start trimethoprim sulfamethoxazole) - bilateral lower extremity venous Dopplers done on 03/22/2020 1- for DVTs bilaterally (3) COVID-19 virus infection: Code(s): U07.1 - COVID-19 Status: Acute Assessment and Plan: patient was tested positive for COVID-19 on 03/07/2020 - continue dexamethasone - status post Remdesivir course - patient received 1 unit of convalescent plasma 03/14 - monitor inflammatory markers (4) Multiple sclerosis: Code(s): G35 - Multiple sclerosis Status: Chronic Assessment and Plan: Dalfampridine, Modafinil on hold (5) Encephalopathy: Code(s): G93.40 - Encephalopathy, unspecified Status: Acute Assessment and Plan: resolved: patient more awake, alert follows simple commands in all extremities. OFF ALL SEDATION .- CT scan of the head 03/19/2020: 1. No acute intracranial process. 2. Age-related changes including mild diffuse lung loss and mild scattered white matter hypoattenuation consistent with chronic small vessel ischemic disease. (6) Dietary counseling and surveillance: Code(s): Z71.3 - Dietary counseling and surveillance Status: Acute Assessment and Plan: patient tolerating tube feeds, last bowel movement 03/14/2020 - continue MiraLax - stress ulcer prophylaxis: Protonix (7) DVT prophylaxis: Code(s): Z29.9 - Encounter for prophylactic measures, unspecified Status: Acute Assessment and Plan: patient is currently on subcutaneous Lovenox at 1 milligram/kg Q day. Additional Plan discussed with patient updated her with her condition and plan of care Code Status - Full Code Critical care time spent: 32 minutes Due to a high probability of clinically significant, life threatening deterioration, the patient required my highest level of preparedness to intervene emergently and I personally spent this critical care time directly and personally managing the patient. This critical care time included obtaining a history; examining the patient; pulse oximetry; ordering and review of studies; arranging urgent treatment with development of a management plan; evaluation of patient's response to treatment; frequent reassessment; and discussions with other providers. It was exclusive of separately billable procedures and treating other patients and teaching time. Please see Assessment and Plan section and the rest of the note for further information on patient assessment and treatment Subjective Date/time seen: 03/25/2020 Interval history: Reason for consult: COVID-19 pneumonia, acute respiratory failure, shock, multiple sclerosis - off Levophed since 03/17/2020 in the [facility]
--- NOTE | 2020-03-25 17:35 | PM.IMPN ---
Progress Note: A&P Assessment and Plan (1) Acute respiratory failure with hypoxia: Code(s): J96.01 - Acute respiratory failure with hypoxia Status: Acute Assessment and Plan: Due to COVID-19. Continue supportive care on mechanical ventilation. Pt is on high dose lovenox. Interval history: 64yo female with hx of MS here for acute respiratory failure related to COVID. Unfortunately, pt had to be intubated gradually improvement over past two weeks, hopeful to come off ventilator soon. today patient was extubated and seen outside her room and appears clinically stable (2) Shock: Code(s): R57.9 - Shock, unspecified Status: Acute Assessment and Plan: Hypotension treated with fluids small boluses (3) COVID-19 virus infection: Code(s): U07.1 - COVID-19 Status: Acute Assessment and Plan: Positive COVID-19 testing on 03/07/2020. Received convalescent plasma 03/14 and also remdesivir. Dexamethasone day #10 of . (4) Multiple sclerosis: Code(s): G35 - Multiple sclerosis Status: Chronic Assessment and Plan: Stable. Will need PT/OT after extubation. (5) Depression: Qualifiers: Depression Type: unspecified Qualified Code(s): F32.9 - Major depressive disorder, single episode, unspecified Code(s): F32.9 - Major depressive disorder, single episode, unspecified Status: Chronic Assessment and Plan: Stable.Continue citalopram via NG (6) Hypothyroidism, unspecified: Qualifiers: Hypothyroidism type: unspecified Qualified Code(s): E03.9 - Hypothyroidism, unspecified Code(s): E03.9 - Hypothyroidism, unspecified Status: Chronic Assessment and Plan: Stable. Continue levothyroxine via NG (7) DVT prophylaxis: Code(s): Z29.9 - Encounter for prophylactic measures, unspecified Status: Acute Assessment and Plan: Lovenox on high dose (8) Encephalopathy: Code(s): G93.40 - Encephalopathy, unspecified Status: Acute Assessment and Plan: Pt is on precedex Subjective Date/time seen: Interval history: 64yo female with hx of MS here for acute respiratory failure related to COVID. Unfortunately, pt had to be intubated gradually improvement over past two weeks, hopeful to come off ventilator soon. today patient was extubated and seen outside her room and appears clinically stable Review of Systems Review of Systems: ROS unobtainable: Yes unobtainable due to medical condition Exam Narrative: Exam Narrative: patient seen outside her door not examine Const: General: comfortable and no acute distress HENMT: General nose exam: Normal nares present Mouth: Yes moist mucous membranes Neck: Other: no retraction Resp: Effort & Inspection: normal respiratory effort GI: Other: not distended Skin: General skin exam: normal color Extrem: General: normal to inspection Psych: Affect: Anxious affect present Objective Data Vital Signs Vital Signs: Vital Signs - 24 hr 03/24/20 18:00 03/24/20 18:11 03/24/20 20:00 Temperature 99.8 F H 99.8 F H Pulse Rate 70 73 73 Respiratory Rate 23 H 20 Blood Pressure 114/49 L 120/65 Pulse Oximetry 91 94 03/24/20 20:45 03/24/20 20:55 03/24/20 22:00 Temperature 99.9 F H Pulse Rate 73 74 71 Respiratory Rate 18 18 19 Blood Pressure 123/56 L Pulse Oximetry 95 94 03/25/20 00:00 03/25/20 00:03 03/25/20 02:00 Temperature 99.9 F H 99.8 F H Pulse Rate 67 70 67 Respiratory Rate 17 16 Blood Pressure 122/57 L 97/58 L Pulse Oximetry 93 92 92 03/25/20 04:00 03/25/20 04:09 03/25/20 05:32 Temperature 99.7 F H Pulse Rate 64 66 66 Respiratory Rate 20 20 20 Blood Pressure 99/74 L Pulse Oximetry 94 94 03/25/20 06:00 03/25/20 07:30 03/25/20 08:00 Temperature 99.4 F 99.4 F Pulse Rate 66 65 68 Respiratory Rate 16 16 16 Blood Pressure 97/51 L 106/55 L Pulse Oximetr
[2020-03-25 18:16] LABS: Glucose Point of Care 87 (65-105)
[2020-03-26] VITALS (16 sets, daily range): BP systolic 93–120; BP diastolic 44–71; PULSE 72–105; RESP 18–29; TEMP 37–37.7; O2SAT 93–100
[2020-03-26 00:19] LABS: Glucose Point of Care 78 (65-105)
[2020-03-26] MEDS: IPRATROPIUM BR 0.02% INH SOLN 0.5 MG/2.5 ML VIAL INHALATION ×3 (01:28→21:39)
[2020-03-26] MEDS: ALBUTEROL SULFATE NEB 2.5 MG/0.5 ML INH INHALATION ×3 (01:28→21:39)
[2020-03-26 04:30] LABS: Alveolar/Arterial O2 Gradient 119.6 mmHg; Base Excess ABG 2.3 mEq/l (+/-2.0); Carboxyhemoglobin 0.3 % THb (0-2.0); Device NASAL CANNULA; Fractional Inspired Oxygen 32 %; HCO3 ABG 25.4 mEq/l (22.0-26.0); Methemoglobin ABG 0.2 %THb (0-1.5); Modified Allen's Test Pass; Oxygen Content ABG 16.5 %vol (16.0-22.0); Oxygen Saturation ABG 95.1 % (95.0-100.0); PCO2 ABG 34.2 mmHg (35.0-45.0); PO2 ABG 68.5 mmHg (80.0-100.0); PO2 FiO2 Ratio Arterial Blood 2.14 %; Reduced Hemoglobin 6.5 %THb (0-5.0); Site Drawn RIGHT RADIAL; Total Hemoglobin 12.6 g/dL (12.0-18.0); pH ABG 7.488 (7.350-7.450)
[2020-03-26] MEDS: CENTRAL LINE FLUSH 10 ML IV PUSH ×3 (05:18→21:00)
[2020-03-26 06:15] LABS: Basophils Absolute Auto 0.1 K/mm3 (0.0-0.1); Basophils Percent Auto 0.7 % (0.2-1.2); Eosinophils Absolute Auto 0.1 K/mm3 (0-0.3); Hematocrit 34.3 % (37.0-47.0); Hemoglobin 10.7 g/dL (12.0-15.0); Immature Granulocyte Absolute 0.29 K/mm3 (0.00-0.031); Immature Granulocyte Percent A 2.2 % (0-0.5); Lymphocytes Absolute Auto 1.52 K/mm3 (0.9-3.2); Lymphocytes Percent Auto 11.4 % (18.3-44.2); Mean Corpuscular HGB Conc 31.2 g/dl (32-36); Mean Corpuscular Volume 96.1 fl (80-100); Mean Platelet Volume 9.8 fl (7.4-10.4); Monocytes Absolute Auto 1.2 K/mm3 (0.1-0.6); Monocytes Percent Auto 8.8 % (2.6-8.5); Neutrophils Absolute Auto 10.1 K/mm3 (1.3-6.7); Neutrophils Percent Auto 75.9 % (45.5-73.1); Platelet Count Result 329 k/mm3 (150-375); Red Blood Count 3.57 M/mm3 (4.2-5.4); Red Cell Distribution Width 13.7 % (11.5-14.5); White Blood Count 13.4 K/mm3 (4.5-10.0)
[2020-03-26 06:27] LABS: Anion Gap 6 mmol/L (8-16); Blood Urea Nitrogen 26 mg/dL (7-17); Carbon Dioxide 26 mmol/L (22-30); Chloride 102 mmol/L (98-107); Estimated CRCL calculation 85 ml/min; Estimated Glomerular Filt Rate > 60; Glucose 84 mg/dL (65-105); Magnesium 2.3 mg/dL (1.6-2.3); Phosphorus 3.6 mg/dL (2.5-4.5); Potassium 3.9 mmol/L (3.4-5.0); Sodium 134 mmol/L (137-145)
--- NOTE | 2020-03-26 09:15 | WPDINTPN ---
Progress Note: A&P Assessment and Plan (1) Acute respiratory failure with hypoxia: Code(s): J96.01 - Acute respiratory failure with hypoxia Status: Acute Assessment and Plan: EXTUBATED ON 03/25/2020 acute respiratory failure likely secondary to COVID-19 pneumonia. Patient intubated on 03/15/2020 - currently on 3 L nasal with adequate O2 saturations - continue Bronchodilators - OFF PRECEDEX - PT/OT has been ordered, sit up in chair - speech therapy to evaluate for swallow test (2) Shock: Code(s): R57.9 - Shock, unspecified Status: Acute Assessment and Plan: RESOLVED patient was given small fluid boluses last night during intubation. off Levophed since 03/17/2020 in the evening - patient is on Decadron - continues to have leukocytosis which could be possibly secondary to dexamethasone - patient with low-grade fevers, blood and urine cx negative - Sputum Cx growing stenotrophomonas maltophilia, started patient on levofloxacin and discontinued cefepime ( patient is allergic to sulfa drugs so did not start trimethoprim sulfamethoxazole) - bilateral lower extremity venous Dopplers done on 03/22/2020 1- for DVTs bilaterally (3) COVID-19 virus infection: Code(s): U07.1 - COVID-19 Status: Acute Assessment and Plan: patient was tested positive for COVID-19 on 03/07/2020 - continue dexamethasone - status post Remdesivir course - patient received 1 unit of convalescent plasma 03/14 - monitor inflammatory markers (4) Multiple sclerosis: Code(s): G35 - Multiple sclerosis Status: Chronic Assessment and Plan: Dalfampridine, Modafinil on hold (5) Encephalopathy: Code(s): G93.40 - Encephalopathy, unspecified Status: Acute Assessment and Plan: Resolved: .- CT scan of the head 03/19/2020: 1. No acute intracranial process. 2. Age-related changes including mild diffuse lung loss and mild scattered white matter hypoattenuation consistent with chronic small vessel ischemic disease. (6) Dietary counseling and surveillance: Code(s): Z71.3 - Dietary counseling and surveillance Status: Acute Assessment and Plan: speech to evaluate for swallow test - stress ulcer prophylaxis: Protonix (7) DVT prophylaxis: Code(s): Z29.9 - Encounter for prophylactic measures, unspecified Status: Acute Assessment and Plan: patient is currently on subcutaneous Lovenox at 1 milligram/kg Q day. Additional Plan discussed with patient updated her with her condition and plan of care Code Status - Full Code Critical care time spent: 31 minutes Due to a high probability of clinically significant, life threatening deterioration, the patient required my highest level of preparedness to intervene emergently and I personally spent this critical care time directly and personally managing the patient. This critical care time included obtaining a history; examining the patient; pulse oximetry; ordering and review of studies; arranging urgent treatment with development of a management plan; evaluation of patient's response to treatment; frequent reassessment; and discussions with other providers. It was exclusive of separately billable procedures and treating other patients and teaching time. Please see Assessment and Plan section and the rest of the note for further information on patient assessment and treatment Subjective Date/time seen: 03/26/20 09:15 Interval history: Reason for consult: COVID-19 pneumonia, acute respiratory failure, shock, multiple sclerosis - off Levophed since 03/17/2020 in the evening - extubated 03/25/2020 03/26/2020: Patient on 3 L nasal cannula, denies any shortness of breath, abdominal pain, nausea, vomiting. Is awake, alert, oriented, follows simple commands, pleasant personality. Urine output has been adequate in response to diuretics yesterday. Patient is afebrile, hemodynamic
[2020-03-26] MEDS: ENOXAPARIN 80 MG/0.8 ML SYRINGE 75 MG SUB-Q (10:03)
--- NOTE | 2020-03-26 10:09 | PCSTNOTE ---
Bedside swallow evaluation This pt was seen for a bedside swallow evaluation 1 day after being extubated. The pt's voice is hoarse at baseline, and she has been NPO. She was seated upright in bed and given trials of thin, mildly thick, and extremely thick (pudding) liquid, puree, and solid food. Throat clearing occurred following all trials of thin liquids, suggesting laryngeal sensitivity. No clinical signs of aspiration occurred with other consistencies. It should be noted that silent aspiration cannot be ruled out at bedside. It is recommended for the pt to receive an oral diet of regular foods and mildly thick (2) liquids. Position during intake should be upright. Speech therapy should focus on tolerating an oral diet and working to upgrade to thin liquids. The pt should complete laryngeal elevation exercises.
--- NOTE | 2020-03-26 12:14 | PC.NURSE ---
This patient, Raquel Harper, was transferred to [[id number] ] on 03/26/20 at 1150. Personal belongings sent with patient. Belongings sent with patient.]. Report given to [Garrett ]. Appropriate documentation sent with patient.
[2020-03-26] MEDS: TRIAMCINOLONE ACET 0.1% CREAM 15 GM TUBE 1 APPLIC TOPICAL ×3 (12:46→21:00)
[2020-03-26 12:55] LABS: Glucose Point of Care 80 (65-105)
--- NOTE | 2020-03-26 15:03 | PC.NURSE ---
This nurse got a call @[phone] from the of this patient stating that she was requesting to have an ambulance pick her up and take her home. This nurse went in the room to ask the patient about her concerns. The patient stated crying stating that she wanted to go home and that she, couldn't do it anymore. This nurse educated her on current treatment. This nurse also notified Dr. Recinos.
--- NOTE | 2020-03-26 15:35 | PCPTNOTE ---
attempted to eval this patient this afternoon...patient refused multiple times...she is tearful, and keeps repeating I want to go home ...will see tomorrow as able
--- NOTE | 2020-03-26 15:47 | PM.IMPN ---
Progress Note: A&P Assessment and Plan (1) Acute respiratory failure with hypoxia: Code(s): J96.01 - Acute respiratory failure with hypoxia Status: Acute Assessment and Plan: 03/26/20 15:47 Due to COVID-19. Continue supportive care on mechanical ventilation. Pt is on high dose lovenox. Interval history: 64yo female with hx of MS here for acute respiratory failure related to COVID. Unfortunately, pt had to be intubated gradually improvement over past two weeks, hopeful to come off ventilator soon. on 03/25 patient was extubated and today patient was seen in the room, patient is anxious most to go home explained to her her oxygen requirement is high and she is high risk, and we cannot discharge at present, I spoke with the patient a spot on phone and he is in agreement with the plan, will continue present management and monitor patient oxygen requirement and further recommendation to follow (2) Shock: Code(s): R57.9 - Shock, unspecified Status: Acute Assessment and Plan: Hypotension treated with fluids small boluses (3) COVID-19 virus infection: Code(s): U07.1 - COVID-19 Status: Acute Assessment and Plan: Positive COVID-19 testing on 03/07/2020. Received convalescent plasma 03/14 and also remdesivir. Dexamethasone day #10 of . (4) Multiple sclerosis: Code(s): G35 - Multiple sclerosis Status: Chronic Assessment and Plan: Stable. Will need PT/OT after extubation. (5) Depression: Qualifiers: Depression Type: unspecified Qualified Code(s): F32.9 - Major depressive disorder, single episode, unspecified Code(s): F32.9 - Major depressive disorder, single episode, unspecified Status: Chronic Assessment and Plan: Stable.Continue citalopram via NG (6) Hypothyroidism, unspecified: Qualifiers: Hypothyroidism type: unspecified Qualified Code(s): E03.9 - Hypothyroidism, unspecified Code(s): E03.9 - Hypothyroidism, unspecified Status: Chronic Assessment and Plan: Stable. Continue levothyroxine via NG (7) DVT prophylaxis: Code(s): Z29.9 - Encounter for prophylactic measures, unspecified Status: Acute Assessment and Plan: Lovenox on high dose (8) Encephalopathy: Code(s): G93.40 - Encephalopathy, unspecified Status: Acute Assessment and Plan: Pt is on precedex Subjective Date/time seen: 03/26/20 15:47 Due to COVID-19. Continue supportive care on mechanical ventilation. Pt is on high dose lovenox. Interval history: 64yo female with hx of MS here for acute respiratory failure related to COVID. Unfortunately, pt had to be intubated gradually improvement over past two weeks, hopeful to come off ventilator soon. on 03/25 patient was extubated and today patient was seen in the room, patient is anxious most to go home explained to her her oxygen requirement is high and she is high risk, and we cannot discharge at present, I spoke with the patient a spot on phone and he is in agreement with the plan, will continue present management and monitor patient oxygen requirement and further recommendation to follow Review of Systems Review of Systems: All systems reviewed & are unremarkable except as noted in HPI and below Exam Narrative: Exam Narrative: patient was seen in the room not examined temperature is 99.3?, pulse is 96, respiratory is 20, pulse ox is 100% at 3 L nasal cannula, blood pressure is 112/50 Const: General: no acute distress and uncomfortable HENMT: General nose exam: Normal nares present Mouth: Yes moist mucous membranes Eyes: Sclera: sclerae normal Neck: Other: no retraction Resp: Effort & Inspection: normal respiratory effort GI: Other: not distended Skin: General skin exam: normal color Neuro: Speech: normal speech Extrem: General: normal to inspection Psych: Affect: Anxious affect prese
[2020-03-26 16:58] LABS: Glucose Point of Care 89 (65-105)
[2020-03-27] VITALS (14 sets, daily range): BP systolic 104–116; BP diastolic 44–55; PULSE 86–112; RESP 16–20; TEMP 36.7–36.8; O2SAT 93–100
[2020-03-27 00:33] LABS: Glucose Point of Care 118 (65-105)
[2020-03-27] MEDS: ALBUTEROL SULFATE NEB 2.5 MG/0.5 ML INH INHALATION ×4 (02:36→20:31)
[2020-03-27] MEDS: IPRATROPIUM BR 0.02% INH SOLN 0.5 MG/2.5 ML VIAL INHALATION ×4 (02:36→20:30)
[2020-03-27 06:27] LABS: Glucose Point of Care 108 (65-105)
[2020-03-27] MEDS: CENTRAL LINE FLUSH 10 ML IV PUSH ×3 (06:31→22:19)
[2020-03-27] MEDS: LEVOTHYROXINE SODIUM 100 MCG TABLET PO (06:32)
[2020-03-27 06:40] LABS: Basophils Absolute Auto 0.1 K/mm3 (0.0-0.1); Basophils Percent Auto 0.5 % (0.2-1.2); Eosinophils Absolute Auto 0.1 K/mm3 (0-0.3); Eosinophils Percent Auto 0.5 % (0-4.4); Hematocrit 34.9 % (37.0-47.0); Immature Granulocyte Absolute 0.37 K/mm3 (0.00-0.031); Immature Granulocyte Percent A 1.9 % (0-0.5); Lymphocytes Absolute Auto 1.37 K/mm3 (0.9-3.2); Lymphocytes Percent Auto 7.1 % (18.3-44.2); Mean Corpuscular HGB Conc 31.5 g/dl (32-36); Mean Corpuscular Hemoglobin 29.6 pg (26-34); Mean Corpuscular Volume 94.1 fl (80-100); Mean Platelet Volume 10.6 fl (7.4-10.4); Monocytes Absolute Auto 1.6 K/mm3 (0.1-0.6); Monocytes Percent Auto 8.3 % (2.6-8.5); Neutrophils Absolute Auto 15.8 K/mm3 (1.3-6.7); Neutrophils Percent Auto 81.7 % (45.5-73.1); Platelet Count Result 284 k/mm3 (150-375); Red Blood Count 3.71 M/mm3 (4.2-5.4); Red Cell Distribution Width 13.8 % (11.5-14.5); White Blood Count 19.3 K/mm3 (4.5-10.0)
[2020-03-27 06:51] LABS: Alanine Aminotransferase 48 U/L (4-35); Albumin Level 3.2 g/dL (3.5-5.1); Alkaline Phosphatase 68 U/L (38-126); Anion Gap 4 mmol/L (8-16); Aspartate Amino Transferase 37 U/L (14-36); Bilirubin,Total 0.6 mg/dL (0.2-1.3); Blood Urea Nitrogen 21 mg/dL (7-17); Calcium 8.1 mg/dL (8.4-10.2); Carbon Dioxide 27 mmol/L (22-30); Chloride 103 mmol/L (98-107); Estimated CRCL calculation 100 ml/min; Estimated Glomerular Filt Rate > 60; Glucose 112 mg/dL (65-105); Potassium 4.2 mmol/L (3.4-5.0); Sodium 134 mmol/L (137-145)
[2020-03-27] MEDS: SOLIFENACIN 5 MG TABLET PO (09:17)
[2020-03-27] MEDS: CHOLECALCIFEROL 1,000 UNITS TABLET 2000 UNITS PO (09:17)
[2020-03-27] MEDS: CITALOPRAM HYDROBROMIDE 20 MG TABLET 40 MG PO (09:17)
[2020-03-27] MEDS: TRIAMCINOLONE ACET 0.1% CREAM 15 GM TUBE 1 APPLIC TOPICAL ×4 (09:18→22:19)
[2020-03-27] MEDS: ENOXAPARIN 80 MG/0.8 ML SYRINGE 75 MG SUB-Q (09:18)
[2020-03-27] MEDS: polyethylene glycoL 3350 17 GM POWD.PACK FEED TUBE (09:31)
--- NOTE | 2020-03-27 12:18 | PCNFU ---
Nutrition Follow-Up Complete: Inadequate oral intake related to oral intubation as evidenced by NPO status. Goal: Patient to meet estimated nutrition needs. progressing towards goal. We will continue current goal. Pt current nutrition is Regular, Level 7 with Mildly Thick liquids, Level 2. Nutrition recommendation: Agree Last recorded weight is 77.3 kg. Bowel Motility:+BM reported 03/27 Labs Reviewed:Na 134,BUN 21,Cr 0.5,Glu 112 Meds Noted:Celexa,Lovenox Additional Notes: Nutrition follow up, COVID +. Patient was called x 2 , no answer. I spoke with nursing today. Bedside swallow performed on 03/26-recommending a regular diet, Level 7 with Mildly Thick liquids, Level 2. Patient had non select tray ordered for breakfast consisting of hunter,eggs, toast, apple juice thickened. No intake has been reported. Agree with diet orders. Monitoring: Follow up every 3 days.
[2020-03-27 13:50] LABS: Glucose Point of Care 120 (65-105)
--- NOTE | 2020-03-27 14:58 | PCSTNOTE ---
Patient not seen by ST due to leaving ICU and transferring to [facility] Med/Surg
--- NOTE | 2020-03-27 16:13 | PM.IMPN ---
Progress Note: A&P Assessment and Plan (1) Acute respiratory failure with hypoxia: Code(s): J96.01 - Acute respiratory failure with hypoxia Status: Acute Assessment and Plan: 03/27/20 16:13 Due to COVID-19. Continue supportive care on mechanical ventilation. Pt is on high dose lovenox. Interval history: 64yo female with hx of MS here for acute respiratory failure related to COVID. Unfortunately, pt had to be intubated gradually improvement over past two weeks, hopeful to come off ventilator soon. on 03/25 patient was extubated and today patient was seen in the room, patient is anxious most to go home explained to her her oxygen requirement is high and she is high risk, and we cannot discharge at present, I spoke with the patient on phone on 03/26 and he is in agreement with the plan, today patient clinically stable still requiring 3 L of oxygen, there is no fever, encourage physical therapy will continue present management and monitor patient oxygen requirement and further recommendation to follow (2) Shock: Code(s): R57.9 - Shock, unspecified Status: Acute Assessment and Plan: Hypotension treated with fluids small boluses (3) COVID-19 virus infection: Code(s): U07.1 - COVID-19 Status: Acute Assessment and Plan: Positive COVID-19 testing on 03/07/2020. Received convalescent plasma 03/14 and also remdesivir. Dexamethasone day #10 of . (4) Multiple sclerosis: Code(s): G35 - Multiple sclerosis Status: Chronic Assessment and Plan: Stable. Will need PT/OT after extubation. (5) Depression: Qualifiers: Depression Type: unspecified Qualified Code(s): F32.9 - Major depressive disorder, single episode, unspecified Code(s): F32.9 - Major depressive disorder, single episode, unspecified Status: Chronic Assessment and Plan: Stable.Continue citalopram via NG (6) Hypothyroidism, unspecified: Qualifiers: Hypothyroidism type: unspecified Qualified Code(s): E03.9 - Hypothyroidism, unspecified Code(s): E03.9 - Hypothyroidism, unspecified Status: Chronic Assessment and Plan: Stable. Continue levothyroxine via NG (7) DVT prophylaxis: Code(s): Z29.9 - Encounter for prophylactic measures, unspecified Status: Acute Assessment and Plan: Lovenox on high dose (8) Encephalopathy: Code(s): G93.40 - Encephalopathy, unspecified Status: Acute Assessment and Plan: Pt is on precedex Subjective Date/time seen: 03/27/20 16:13 Due to COVID-19. Continue supportive care on mechanical ventilation. Pt is on high dose lovenox. Interval history: 64yo female with hx of MS here for acute respiratory failure related to COVID. Unfortunately, pt had to be intubated gradually improvement over past two weeks, hopeful to come off ventilator soon. on 03/25 patient was extubated and today patient was seen in the room, patient is anxious most to go home explained to her her oxygen requirement is high and she is high risk, and we cannot discharge at present, I spoke with the patient on phone on 03/26 and he is in agreement with the plan, today patient clinically stable still requiring 3 L of oxygen, there is no fever, encourage physical therapy will continue present management and monitor patient oxygen requirement and further recommendation to follow Review of Systems Review of Systems: All systems reviewed & are unremarkable except as noted in HPI and below Exam Narrative: Exam Narrative: patient is seen but not examine temperature is 98.2, pulse 94 respiratory 20 pulse ox 100% 3 L nasal cannula blood pressure 104/50 Const: General: comfortable and no acute distress HENMT: General nose exam: Normal nares present Eyes: Sclera: sclerae normal Neck: Other: no retraction Resp: Effort & Inspection: normal respiratory e
[2020-03-27 22:08] LABS: Glucose Point of Care 108 (65-105)
[2020-03-28] VITALS (13 sets, daily range): BP systolic 111–133; BP diastolic 40–64; PULSE 76–108; RESP 18–20; TEMP 36.1–37.4; O2SAT 93–100
[2020-03-28] MEDS: IPRATROPIUM BR 0.02% INH SOLN 0.5 MG/2.5 ML VIAL INHALATION ×2 (02:11→20:44)
[2020-03-28] MEDS: ALBUTEROL SULFATE NEB 2.5 MG/0.5 ML INH INHALATION ×2 (02:11→20:44)
[2020-03-28] MEDS: LEVOTHYROXINE SODIUM 100 MCG TABLET PO (05:41)
[2020-03-28] MEDS: CENTRAL LINE FLUSH 10 ML IV PUSH ×3 (05:41→21:22)
[2020-03-28 06:16] LABS: Glucose Point of Care 99 (65-105)
[2020-03-28 06:18] LABS: Glucose Point of Care 95 (65-105)
[2020-03-28 07:17] LABS: Basophils Absolute Auto 0.1 K/mm3 (0.0-0.1); Basophils Percent Auto 0.3 % (0.2-1.2); Eosinophils Absolute Auto 0.1 K/mm3 (0-0.3); Eosinophils Percent Auto 0.6 % (0-4.4); Hematocrit 31.8 % (37.0-47.0); Hemoglobin 10.1 g/dL (12.0-15.0); Immature Granulocyte Absolute 0.26 K/mm3 (0.00-0.031); Immature Granulocyte Percent A 1.4 % (0-0.5); Lymphocytes Absolute Auto 1.39 K/mm3 (0.9-3.2); Lymphocytes Percent Auto 7.4 % (18.3-44.2); Mean Corpuscular HGB Conc 31.8 g/dl (32-36); Mean Corpuscular Hemoglobin 29.8 pg (26-34); Mean Corpuscular Volume 93.8 fl (80-100); Mean Platelet Volume 9.6 fl (7.4-10.4); Monocytes Absolute Auto 1.3 K/mm3 (0.1-0.6); Neutrophils Absolute Auto 15.7 K/mm3 (1.3-6.7); Neutrophils Percent Auto 83.3 % (45.5-73.1); Platelet Count Result 415 k/mm3 (150-375); Red Blood Count 3.39 M/mm3 (4.2-5.4); Red Cell Distribution Width 13.9 % (11.5-14.5); White Blood Count 18.9 K/mm3 (4.5-10.0)
[2020-03-28 08:03] LABS: Alanine Aminotransferase 34 U/L (4-35); Albumin Level 3.1 g/dL (3.5-5.1); Alkaline Phosphatase 56 U/L (38-126); Anion Gap 3 mmol/L (8-16); Aspartate Amino Transferase 30 U/L (14-36); Bilirubin,Total 0.5 mg/dL (0.2-1.3); Blood Urea Nitrogen 16 mg/dL (7-17); Carbon Dioxide 28 mmol/L (22-30); Chloride 103 mmol/L (98-107); Estimated CRCL calculation 100 ml/min; Estimated Glomerular Filt Rate > 60; Glucose 135 mg/dL (65-105); Sodium 134 mmol/L (137-145)
[2020-03-28] MEDS: ENOXAPARIN 80 MG/0.8 ML SYRINGE 75 MG SUB-Q (08:15)
[2020-03-28] MEDS: CHOLECALCIFEROL 1,000 UNITS TABLET 2000 UNITS PO (08:16)
[2020-03-28] MEDS: SOLIFENACIN 5 MG TABLET PO (08:16)
[2020-03-28] MEDS: polyethylene glycoL 3350 17 GM POWD.PACK FEED TUBE (08:16)
[2020-03-28] MEDS: CITALOPRAM HYDROBROMIDE 20 MG TABLET 40 MG PO (08:16)
[2020-03-28] MEDS: TRIAMCINOLONE ACET 0.1% CREAM 15 GM TUBE 1 APPLIC TOPICAL ×4 (08:17→20:32)
[2020-03-28 08:39] LABS: CRP 4.2 mg/dL (<1.0)
[2020-03-28 12:14] LABS: Glucose Point of Care 90 (65-105)
[2020-03-28] MEDS: ACETAMINOPHEN 325 MG TABLET 650 MG PO (13:51)
--- NOTE | 2020-03-28 14:41 | PCOTNOTE ---
Per [employer], patient reports she just wants to rest . Patient not seen for skilled OT this date. Will continue plan of care tomorrow, 03/29/2020.
--- NOTE | 2020-03-28 14:53 | PCPTNOTE ---
Patient declined PT stating she has no energy left and I want to lay here. Patient also states that she does not want to have OT treatment this afternoon due to wanting rest.
--- NOTE | 2020-03-28 15:30 | PCRCNOTE ---
Window of time for administration has passed. See next scheduled administration.
--- NOTE | 2020-03-28 15:58 | PM.IMPN ---
Progress Note: A&P Assessment and Plan (1) Acute respiratory failure with hypoxia: Code(s): J96.01 - Acute respiratory failure with hypoxia Status: Acute Assessment and Plan: 03/28/20 15:58 Due to COVID-19. Continue supportive care on mechanical ventilation. Pt is on high dose lovenox. Interval history: 64yo female with hx of MS here for acute respiratory failure related to COVID. Unfortunately, pt had to be intubated gradually improvement over past two weeks, hopeful to come off ventilator soon. on 03/25 patient was extubated and today patient was seen in the room, patient is anxious most to go home explained to her her oxygen requirement is high and she is high risk, and we cannot discharge at present, I spoke with the patient on phone on 03/26 and he is in agreement with the plan, today patient clinically stable still requiring 3 L of oxygen, there is no fever, Today he will try to wean patient off oxygen, currently patient is off oxygen and resting will continue to monitor and further recommendation to follow, goal is to take the patient off oxygen for 2 days and if remains clinically stable may discharge the patient home (2) Shock: Code(s): R57.9 - Shock, unspecified Status: Acute Assessment and Plan: Hypotension treated with fluids small boluses (3) COVID-19 virus infection: Code(s): U07.1 - COVID-19 Status: Acute Assessment and Plan: Positive COVID-19 testing on 03/07/2020. Received convalescent plasma 03/14 and also remdesivir. Dexamethasone day #10 of 10. (4) Multiple sclerosis: Code(s): G35 - Multiple sclerosis Status: Chronic Assessment and Plan: Stable. Will need PT/OT after extubation. (5) Depression: Qualifiers: Depression Type: unspecified Qualified Code(s): F32.9 - Major depressive disorder, single episode, unspecified Code(s): F32.9 - Major depressive disorder, single episode, unspecified Status: Chronic Assessment and Plan: Stable.Continue citalopram via NG (6) Hypothyroidism, unspecified: Qualifiers: Hypothyroidism type: unspecified Qualified Code(s): E03.9 - Hypothyroidism, unspecified Code(s): E03.9 - Hypothyroidism, unspecified Status: Chronic Assessment and Plan: Stable. Continue levothyroxine via NG (7) DVT prophylaxis: Code(s): Z29.9 - Encounter for prophylactic measures, unspecified Status: Acute Assessment and Plan: Lovenox on high dose (8) Encephalopathy: Code(s): G93.40 - Encephalopathy, unspecified Status: Acute Assessment and Plan: Pt is off precedex Subjective Date/time seen: 03/28/20 15:58 Due to COVID-19. Continue supportive care on mechanical ventilation. Pt is on high dose lovenox. Interval history: 64yo female with hx of MS here for acute respiratory failure related to COVID. Unfortunately, pt had to be intubated gradually improvement over past two weeks, hopeful to come off ventilator soon. on 03/25 patient was extubated and today patient was seen in the room, patient is anxious most to go home explained to her her oxygen requirement is high and she is high risk, and we cannot discharge at present, I spoke with the patient on phone on 03/26 and he is in agreement with the plan, today patient clinically stable still requiring 3 L of oxygen, there is no fever, Today he will try to wean patient off oxygen, currently patient is off oxygen and resting will continue to monitor and further recommendation to follow, goal is to take the patient off oxygen for 2 days and if remains clinically stable may discharge the patient home Review of Systems Review of Systems: All systems reviewed & are unremarkable except as noted in HPI and below Exam Narrative: Exam Narrative: patient is seen in the room not examined temperature is 99.2, pulse is 103, respirator
--- NOTE | 2020-03-28 16:33 | PCSTNOTE ---
The patient treatment was not able to be completed on 03/28/20. Will plan to continue treatment per plan of care.
[2020-03-28 17:15] LABS: Glucose Point of Care 125 (65-105)
[2020-03-29] VITALS (11 sets, daily range): BP systolic 109–130; BP diastolic 44–72; PULSE 94–120; RESP 16–18; TEMP 36.4–37.9; O2SAT 94–100
[2020-03-29 00:01] LABS: Glucose Point of Care 99 (65-105)
[2020-03-29] MEDS: LEVOTHYROXINE SODIUM 100 MCG TABLET PO (05:35)
[2020-03-29] MEDS: CENTRAL LINE FLUSH 10 ML IV PUSH ×3 (05:36→21:26)
[2020-03-29 06:10] LABS: Basophils Absolute Auto 0.1 K/mm3 (0.0-0.1); Basophils Percent Auto 0.6 % (0.2-1.2); Eosinophils Absolute Auto 0.2 K/mm3 (0-0.3); Eosinophils Percent Auto 1.1 % (0-4.4); Hematocrit 30.7 % (37.0-47.0); Immature Granulocyte Absolute 0.14 K/mm3 (0.00-0.031); Lymphocytes Absolute Auto 1.64 K/mm3 (0.9-3.2); Lymphocytes Percent Auto 11.9 % (18.3-44.2); Mean Corpuscular HGB Conc 32.6 g/dl (32-36); Mean Corpuscular Hemoglobin 30.4 pg (26-34); Mean Corpuscular Volume 93.3 fl (80-100); Mean Platelet Volume 9.5 fl (7.4-10.4); Monocytes Percent Auto 7.1 % (2.6-8.5); Neutrophils Absolute Auto 10.8 K/mm3 (1.3-6.7); Neutrophils Percent Auto 78.3 % (45.5-73.1); Platelet Count Result 405 k/mm3 (150-375); Red Blood Count 3.29 M/mm3 (4.2-5.4); Red Cell Distribution Width 14.2 % (11.5-14.5); White Blood Count 13.8 K/mm3 (4.5-10.0)
[2020-03-29 06:45] LABS: Alanine Aminotransferase 30 U/L (4-35); Alkaline Phosphatase 50 U/L (38-126); Anion Gap 4 mmol/L (8-16); Aspartate Amino Transferase 34 U/L (14-36); Bilirubin,Total 0.4 mg/dL (0.2-1.3); Blood Urea Nitrogen 17 mg/dL (7-17); CRP 3.2 mg/dL (<1.0); Calcium 7.8 mg/dL (8.4-10.2); Carbon Dioxide 27 mmol/L (22-30); Chloride 106 mmol/L (98-107); Estimated CRCL calculation 100 ml/min; Estimated Glomerular Filt Rate > 60; Glucose 98 mg/dL (65-105); Potassium 4.2 mmol/L (3.4-5.0); Sodium 137 mmol/L (137-145)
[2020-03-29] MEDS: IPRATROPIUM BR 0.02% INH SOLN 0.5 MG/2.5 ML VIAL INHALATION ×2 (08:04→21:37)
[2020-03-29] MEDS: ALBUTEROL SULFATE NEB 2.5 MG/0.5 ML INH INHALATION ×2 (08:04→21:36)
[2020-03-29] MEDS: SOLIFENACIN 5 MG TABLET PO (08:42)
[2020-03-29] MEDS: ENOXAPARIN 80 MG/0.8 ML SYRINGE 75 MG SUB-Q (08:42)
[2020-03-29] MEDS: CHOLECALCIFEROL 1,000 UNITS TABLET 2000 UNITS PO (08:43)
[2020-03-29] MEDS: CITALOPRAM HYDROBROMIDE 20 MG TABLET 40 MG PO (08:43)
[2020-03-29] MEDS: polyethylene glycoL 3350 17 GM POWD.PACK FEED TUBE (08:44)
[2020-03-29 11:06] LABS: Glucose Point of Care 109 (65-105)
[2020-03-29] MEDS: TRIAMCINOLONE ACET 0.1% CREAM 15 GM TUBE 1 APPLIC TOPICAL ×3 (11:36→21:26)
[2020-03-29 12:05] LABS: Glucose Point of Care 76 (65-105)
--- NOTE | 2020-03-29 16:17 | PM.IMPN ---
Progress Note: A&P Assessment and Plan (1) Acute respiratory failure with hypoxia: Code(s): J96.01 - Acute respiratory failure with hypoxia Status: Acute Assessment and Plan: 03/29/20 16:17 Due to COVID-19. Continue supportive care on mechanical ventilation. Pt is on high dose lovenox. Interval history: 64yo female with hx of MS here for acute respiratory failure related to COVID. Unfortunately, pt had to be intubated gradually improvement over past two weeks, hopeful to come off ventilator soon. on 03/25 patient was extubated and today patient was seen in the room, patient is anxious most to go home explained to her her oxygen requirement is high and she is high risk, and we cannot discharge at present, I spoke with the patient on phone on 03/26 and he is in agreement with the plan, today patient clinically stable still requiring 3 L of oxygen, there is no fever, Today he will try to wean patient off oxygen, currently patient is off oxygen and resting will continue to monitor and further recommendation to follow, on 03/28 Patient was placed on room air and since then patient oxygen saturation is close to >90 % and clinically patient states will continue the present managed reassess the patient tomorrow if remains stable on room air and there is no fever discharge the patient home tomorrow. (2) Shock: Code(s): R57.9 - Shock, unspecified Status: Acute Assessment and Plan: Hypotension treated with fluids small boluses (3) COVID-19 virus infection: Code(s): U07.1 - COVID-19 Status: Acute Assessment and Plan: Positive COVID-19 testing on 03/07/2020. Received convalescent plasma 03/14 and also remdesivir. Dexamethasone day #10 of 10. (4) Multiple sclerosis: Code(s): G35 - Multiple sclerosis Status: Chronic Assessment and Plan: Stable. Will need PT/OT after extubation. (5) Depression: Qualifiers: Depression Type: unspecified Qualified Code(s): F32.9 - Major depressive disorder, single episode, unspecified Code(s): F32.9 - Major depressive disorder, single episode, unspecified Status: Chronic Assessment and Plan: Stable.Continue citalopram via NG (6) Hypothyroidism, unspecified: Qualifiers: Hypothyroidism type: unspecified Qualified Code(s): E03.9 - Hypothyroidism, unspecified Code(s): E03.9 - Hypothyroidism, unspecified Status: Chronic Assessment and Plan: Stable. Continue levothyroxine via NG (7) DVT prophylaxis: Code(s): Z29.9 - Encounter for prophylactic measures, unspecified Status: Acute Assessment and Plan: Lovenox on high dose (8) Encephalopathy: Code(s): G93.40 - Encephalopathy, unspecified Status: Acute Assessment and Plan: Pt is off precedex Subjective Date/time seen: 03/29/20 16:17 Due to COVID-19. Continue supportive care on mechanical ventilation. Pt is on high dose lovenox. Interval history: 64yo female with hx of MS here for acute respiratory failure related to COVID. Unfortunately, pt had to be intubated gradually improvement over past two weeks, hopeful to come off ventilator soon. on 03/25 patient was extubated and today patient was seen in the room, patient is anxious most to go home explained to her her oxygen requirement is high and she is high risk, and we cannot discharge at present, I spoke with the patient on phone on 03/26 and he is in agreement with the plan, today patient clinically stable still requiring 3 L of oxygen, there is no fever, Today he will try to wean patient off oxygen, currently patient is off oxygen and resting will continue to monitor and further recommendation to follow, on 03/28 Patient was placed on room air and since then patient oxygen saturation is close to >90 % and clinically patient states will continue the present managed reassess the patient tomorrow i
[2020-03-29 17:00] LABS: Glucose Point of Care 117 (65-105)
[2020-03-29 21:33] LABS: Glucose Point of Care 110 (65-105)
[2020-03-30] VITALS (13 sets, daily range): BP systolic 109–133; BP diastolic 38–79; PULSE 82–125; RESP 18; TEMP 36.3–38.6; O2SAT 96–99
[2020-03-30] MEDS: CENTRAL LINE FLUSH 10 ML IV PUSH ×3 (06:21→21:03)
[2020-03-30] MEDS: LEVOTHYROXINE SODIUM 100 MCG TABLET PO (06:30)
[2020-03-30 06:59] LABS: Basophils Absolute Auto 0.1 K/mm3 (0.0-0.1); Basophils Percent Auto 0.8 % (0.2-1.2); Eosinophils Absolute Auto 0.2 K/mm3 (0-0.3); Eosinophils Percent Auto 1.8 % (0-4.4); Hematocrit 31.1 % (37.0-47.0); Immature Granulocyte Percent A 0.9 % (0-0.5); Lymphocytes Absolute Auto 1.72 K/mm3 (0.9-3.2); Lymphocytes Percent Auto 15.1 % (18.3-44.2); Mean Corpuscular HGB Conc 32.2 g/dl (32-36); Mean Corpuscular Volume 93.4 fl (80-100); Mean Platelet Volume 9.4 fl (7.4-10.4); Monocytes Absolute Auto 0.9 K/mm3 (0.1-0.6); Monocytes Percent Auto 7.9 % (2.6-8.5); Neutrophils Absolute Auto 8.3 K/mm3 (1.3-6.7); Neutrophils Percent Auto 73.5 % (45.5-73.1); Platelet Count Result 427 k/mm3 (150-375); Red Blood Count 3.33 M/mm3 (4.2-5.4); Red Cell Distribution Width 14.5 % (11.5-14.5); White Blood Count 11.4 K/mm3 (4.5-10.0)
[2020-03-30 07:01] LABS: Glucose Point of Care 82 (65-105)
[2020-03-30 07:14] LABS: Alanine Aminotransferase 28 U/L (4-35); Alkaline Phosphatase 51 U/L (38-126); Anion Gap 4 mmol/L (8-16); Aspartate Amino Transferase 27 U/L (14-36); Bilirubin,Total 0.3 mg/dL (0.2-1.3); Blood Urea Nitrogen 15 mg/dL (7-17); CRP 2.3 mg/dL (<1.0); Carbon Dioxide 26 mmol/L (22-30); Chloride 108 mmol/L (98-107); Estimated CRCL calculation 100 ml/min; Estimated Glomerular Filt Rate > 60; Glucose 103 mg/dL (65-105); Potassium 3.5 mmol/L (3.4-5.0); Sodium 138 mmol/L (137-145)
[2020-03-30] MEDS: ALBUTEROL SULFATE NEB 2.5 MG/0.5 ML INH INHALATION ×2 (09:05→22:10)
[2020-03-30] MEDS: IPRATROPIUM BR 0.02% INH SOLN 0.5 MG/2.5 ML VIAL INHALATION ×2 (09:05→22:10)
--- NOTE | 2020-03-30 09:42 | ECG_ITS ---
Measurements Intervals [place] Rate: 121 P: 58 NC: 147 QRS: 17 QRSD: 74 T: 14 QT: 316 QTc: 450 Interpretive Statements SINUS TACHYCARDIA BORDERLINE ST-T WAVE ABNORMALITY- INFERIOR LEADS BASELINE WANDER- V1, V4-V6 ABNORMAL ECG Electronically Signed On 03-30-2020 16:32:07 CDT by Nicko Lake D.O.
[2020-03-30 09:53] LABS: Glucose Point of Care 118 (65-105)
[2020-03-30] MEDS: ACETAMINOPHEN 325 MG TABLET 650 MG PO (10:34)
[2020-03-30] MEDS: ENOXAPARIN 80 MG/0.8 ML SYRINGE 75 MG SUB-Q (10:36)
[2020-03-30] MEDS: CITALOPRAM HYDROBROMIDE 20 MG TABLET 40 MG PO (10:36)
[2020-03-30] MEDS: CHOLECALCIFEROL 1,000 UNITS TABLET 2000 UNITS PO (10:36)
[2020-03-30] MEDS: SOLIFENACIN 5 MG TABLET PO (10:36)
[2020-03-30] MEDS: polyethylene glycoL 3350 17 GM POWD.PACK FEED TUBE (10:37)
[2020-03-30] MEDS: TRIAMCINOLONE ACET 0.1% CREAM 15 GM TUBE 1 APPLIC TOPICAL ×4 (10:37→21:03)
[2020-03-30] MEDS: ALPRAZolam 0.25 MG TABLET PO (12:53)
[2020-03-30 12:57] LABS: Glucose Point of Care 92 (65-105)
--- NOTE | 2020-03-30 13:31 | PCDIET ---
Nutrition Follow-Up Complete: Nutrition Diagnosis: Inadequate oral intake related to oral intubation as evidenced by NPO status. Nutrition Goal: Patient to meet estimated nutrition needs. Goal in progress. Patient only consumed 10% of first two meals but has since consumed 100% of two meals on regular diet with mildly thick liquids. Feels appetite is improving and likes the food. Interested in trying Nutritional Ice Cream (300kcal, 9g protein). Recommend allowing this upon request (pudding thick consistency). Last recorded weight is 77.3 kg - recommend obtaining new weight. Bowel Motility: Last documented BM on 03/27/20. Labs Reviewed: Hgb (10.0), Hct (31.1), Glu (118), Cr (0.5), Alb (3.0), [place] Ca (8.8) Meds Noted: [place], Albuterol, Xanax, Novolog, Atrovent, Synthroid, Levaquin, Miralax, Vitamin D Additional Notes: No documented skin breakdown. Will continue to monitor with same goal. Nutrition Monitoring and Evaluation: Follow up every 5 days.
--- NOTE | 2020-03-30 16:18 | PM.IMPN ---
Progress Note: A&P Assessment and Plan (1) Acute respiratory failure with hypoxia: Code(s): J96.01 - Acute respiratory failure with hypoxia Status: Acute Assessment and Plan: 03/30/20 16:18 Due to COVID-19. Continue supportive care on mechanical ventilation. Pt is on high dose lovenox. Interval history: 64yo female with hx of MS here for acute respiratory failure related to COVID. Unfortunately, pt had to be intubated gradually improvement over past two weeks, hopeful to come off ventilator soon. on 03/25 patient was extubated and today patient was seen in the room, patient is anxious most to go home explained to her her oxygen requirement is high and she is high risk, and we cannot discharge at present, I spoke with the patient on phone on 03/26 and he is in agreement with the plan, today patient clinically stable still requiring 3 L of oxygen, there is no fever, Today he will try to wean patient off oxygen, currently patient is off oxygen and resting will continue to monitor and further recommendation to follow, on 03/28 Patient was placed on room air and since then patient oxygen saturation is close to >90 % and clinically stable, however patient's heart rate is keep climbing at rest as well as with exertion possibly due to anxiety patient is given xanax with some relief however still has a tachycardia, patient with COVID-19 positive and history rheumatoid arthritis will consult Cardiology further recommendation will continue to monitor the patient and further recommendation to follow, patient has completed the course of dexamethasone and Remdesivir patient was also found multifocal pneumonia and treated with Levophed repeat chest x-ray shows improvement however had been doing very well have been afibrial however today patient has a fever 101.[address] mauricio for his opinion further evaluation. (2) Shock: Code(s): R57.9 - Shock, unspecified Status: Acute Assessment and Plan: Hypotension treated with fluids small boluses (3) COVID-19 virus infection: Code(s): U07.1 - COVID-19 Status: Acute Assessment and Plan: Positive COVID-19 testing on 03/07/2020. Received convalescent plasma 03/14 and also remdesivir. Dexamethasone day #10 of 10. (4) Multiple sclerosis: Code(s): G35 - Multiple sclerosis Status: Chronic Assessment and Plan: Stable. Will need PT/OT after extubation. (5) Depression: Qualifiers: Depression Type: unspecified Qualified Code(s): F32.9 - Major depressive disorder, single episode, unspecified Code(s): F32.9 - Major depressive disorder, single episode, unspecified Status: Chronic Assessment and Plan: Stable.Continue citalopram via NG (6) Hypothyroidism, unspecified: Qualifiers: Hypothyroidism type: unspecified Qualified Code(s): E03.9 - Hypothyroidism, unspecified Code(s): E03.9 - Hypothyroidism, unspecified Status: Chronic Assessment and Plan: Stable. Continue levothyroxine via NG (7) DVT prophylaxis: Code(s): Z29.9 - Encounter for prophylactic measures, unspecified Status: Acute Assessment and Plan: Lovenox on high dose (8) Encephalopathy: Code(s): G93.40 - Encephalopathy, unspecified Status: Acute Assessment and Plan: Pt is off precedex Subjective Date/time seen: 03/30/20 16:18 Due to COVID-19. Continue supportive care on mechanical ventilation. Pt is on high dose lovenox. Interval history: 64yo female with hx of MS here for acute respiratory failure related to COVID. Unfortunately, pt had to be intubated gradually improvement over past two weeks, hopeful to come off ventilator soon. on 03/25 patient was extubated and today patient was seen in the room, patient is anxious most to go home explained to her her oxygen requirement is high and she is high risk, and we cannot discharge
--- NOTE | 2020-03-30 16:56 | PM.CNCAR ---
Assessment and Plan Assessment and plan (1) COVID-19 virus infection: Code(s): U07.1 - COVID-19 Status: Acute Assessment and Plan: she is recovering (2) HTN (hypertension), benign: Code(s): I10 - Essential (primary) hypertension Status: Acute Assessment and Plan: at goal (3) Tachycardia: Code(s): R00.0 - Tachycardia, unspecified Status: Acute Assessment and Plan: likely this is normal physiological reaction to her significant illness. She is also deconditioned and heart rate is likely simply responsive to normal workload given her recent severe illness. I will check a few things to make sure including a 2D echocardiogram with Doppler as obviously Coronavirus /Microembolization can affect the myocardium and also to make sure there is no pericardial involvement. will also check a TSH and free T4 level. She is also mildly hypokalemic and will give her 40 mg p.o. potassium x1 now. could consider CT scan chest to evaluate for pulmonary emboli. She certainly is at high risk given hypercoagulable state during Coronavirus although not highly likely given the fact that she has Received prophylaxis (4) Hypothyroidism, unspecified: Qualifiers: Hypothyroidism type: unspecified Qualified Code(s): E03.9 - Hypothyroidism, unspecified Code(s): E03.9 - Hypothyroidism, unspecified Status: Chronic Assessment and Plan: will check a TSH and free T4 level History of Present Illness History of Present Illness Consult date/time: 03/30/20 16:56 Requesting physician: Jae Recinos MD Consult reason: Other (Tachycardia) Reason For Visit: acute respiratory failure/covid infection Narrative: date of service 03/30/2020: Reason for consultation: Sinus tachycardia History: Patient is a 64-year-old female who was admitted several weeks ago because COVID infection. She was intubated. She was extubated less than 1 week ago. She has been persistently tachycardic throughout the hospitalization. Consultation is requested because her heart rate would jump up into the 150s to 160s upon movement. In general her heart rate is in the 1 teens to 120s while at rest. She otherwise is feeling okay and denies any chest pain, shortness of breath, syncope, presyncope, paroxysmal nocturnal dyspnea, orthopnea, edema or palpitations. Review of Systems Review of Systems: All systems reviewed & are unremarkable except as noted in HPI and below Constitutional: Constitutional: Denies weakness Eyes: Eyes: Denies blurry vision ENT: Reports Normal hearing present Cardiovascular: Cardiovascular: Denies chest pain Respiratory: Respiratory: Denies dyspnea Gastrointestinal: Gastrointestinal: Denies abdominal pain Genitourinary: Genitourinary: Denies flank pain Musculoskeletal: Musculoskeletal: Denies neck pain Integumentary/Breasts: Skin/Breast: Denies dry skin Neurologic: Denies numbness Psychiatric: Psychiatric: Denies behavioral changes Endocrine: Endocrine: Denies excessive sweating Hematologic/Lymphatic: Hematologic/Lymphatic: Denies easy bleeding Allergic/Immunologic: Allergic/Immunologic: Denies GI upset with certain foods PMFSH Past Medical History Medical History COVID-19 Depression Encounter for removal of skin lesion Multiple sclerosis Overactive bladder Psoriasis Surgical History Surgical History H/O partial thyroidectomy H/O: hysterectomy History of tonsillectomy Hx of cholecystectomy Family History Family History Father Bladder cancer Other Family history of multiple sclerosis Social History Social History Social History: Patient lives with her who is a durable power managing attorney for healthcare. T
[2020-03-30] MEDS: POTASSIUM CHLORIDE 20 MEQ TABLET 40 MEQ PO (18:12)
[2020-03-30 19:44] LABS: Glucose Point of Care 136 (65-105)
[2020-03-30 21:15] LABS: Glucose Point of Care 105 (65-105)
[2020-03-30 22:12] LABS: T4 Thyroxine 8.22 ug/dL (5.53-11.0)
[2020-03-31] VITALS (13 sets, daily range): BP systolic 112–134; BP diastolic 55–78; PULSE 86–120; RESP 16–20; TEMP 36.7–37.3; O2SAT 93–98
--- NOTE | 2020-03-31 | ECHO_ITS ---
Patient Info Name: Raquel Harper Age: 64 years : 1955 Gender: Female Ht: 66 in Wt: 170 lbs BSA: 1.91 m2 HR: 115 bpm BP: 134 / 65 mmHg Heart Rhythm: Tachycardia Technical Quality: Good Exam Date: 03/31/2020 11:57 AM Exam Location: [facility] Patient Status: Inpatient Admit Date: 03/13/2020 Staff Ordering Physician: Jonathan Perdomo MD Furnace Door Tender: Gabriel Medrano, HEDY, RT Attending Provider: Kolton Bailey MD Referring Physician: Leanne ROSADO; Exam Type: CA echo doppler color flow Study Info Indications R00.0 - Tachycardia, unspecified Complete two-dimensional, color flow and Doppler transthoracic echocardiogram is performed. Summary 1. Complete two-dimensional, color flow and Doppler transthoracic echocardiogram is performed. 2. Left ventricular chamber dimension is normal. 3. Left ventricular systolic function is normal, estimated at 65-70%. 4. There is mildly increased left ventricular wall thickness. 5. The left ventricular diastolic function is grade I diastolic dysfunction. Left Ventricle Left ventricular chamber dimension is normal. Left ventricular systolic function is normal, estimated at 65-70%. There is mildly increased left ventricular wall thickness. The left ventricular diastolic function is grade I diastolic dysfunction. Right Ventricle Right ventricular chamber dimension is normal. Right ventricular systolic function is normal. Left Atria Left atrial chamber dimension is normal. Right Atria Right atrial chamber dimension is normal. Atrial Septum Intact interatrial septum visualized by color flow imaging. Aortic Valve The aortic valve is trileaflet. There is no aortic valve sclerosis. There is no aortic valve stenosis. There is trace aortic valve regurgitation. Pulmonic Valve The pulmonic valve is normal. There is no pulmonic valve stenosis. There is trace pulmonic regurgitation. Mitral Valve The mitral valve has normal leaflets. There is no mitral valve stenosis. There is trace mitral valve regurgitation. Tricuspid Valve The tricuspid valve leaflets are normal. There is no significant tricuspid valve stenosis. There is trace tricuspid valve regurgitation. Pericardium/Pleural The pericardium appears thickened pericardium. There is small pericardial effusion. Inferior Vena Cava Normal inferior vena cava with >50% collapse upon inspiration consistent with normal right atrial pressure, 5 mmHg. Aorta The aortic root size at the sinus of Valsalva is normal. The prox ascending aorta size is normal. Left Ventricular Outflow Tract Name Value Normal LVOT 2D LVOT Diameter 2.0 cm LVOT Doppler LVOT Peak Gradient 4 mmHg LVOT Mean Gradient 2 mmHg LVOT VTI 17 cm LVOT VTI/AV VTI Ratio 1.3 LVOT Stroke Volume 53 ml LVOT CO 5.9 l/min LVOT CI 3.1 l/min/m2 Mitral Valve
[2020-03-31] MEDS: LEVOTHYROXINE SODIUM 100 MCG TABLET PO (05:57)
[2020-03-31] MEDS: CENTRAL LINE FLUSH 10 ML IV PUSH ×3 (05:57→21:50)
[2020-03-31] MEDS: CENTRAL LINE FLUSH 20 ML IV PUSH (06:00)
[2020-03-31 07:21] LABS: Basophils Absolute Auto 0.1 K/mm3 (0.0-0.1); Basophils Percent Auto 0.9 % (0.2-1.2); Eosinophils Absolute Auto 0.3 K/mm3 (0-0.3); Eosinophils Percent Auto 3.5 % (0-4.4); Hematocrit 33.7 % (37.0-47.0); Hemoglobin 10.8 g/dL (12.0-15.0); Immature Granulocyte Absolute 0.08 K/mm3 (0.00-0.031); Immature Granulocyte Percent A 0.9 % (0-0.5); Lymphocytes Absolute Auto 1.39 K/mm3 (0.9-3.2); Mean Corpuscular Hemoglobin 30.6 pg (26-34); Mean Corpuscular Volume 95.5 fl (80-100); Mean Platelet Volume 9.2 fl (7.4-10.4); Monocytes Absolute Auto 0.7 K/mm3 (0.1-0.6); Neutrophils Absolute Auto 6.7 K/mm3 (1.3-6.7); Neutrophils Percent Auto 72.7 % (45.5-73.1); Platelet Count Result 415 k/mm3 (150-375); Red Blood Count 3.53 M/mm3 (4.2-5.4); Red Cell Distribution Width 14.8 % (11.5-14.5); White Blood Count 9.2 K/mm3 (4.5-10.0)
[2020-03-31 07:37] LABS: Alanine Aminotransferase 32 U/L (4-35); Albumin Level 3.1 g/dL (3.5-5.1); Alkaline Phosphatase 55 U/L (38-126); Anion Gap 3 mmol/L (8-16); Aspartate Amino Transferase 33 U/L (14-36); Bilirubin,Total 0.5 mg/dL (0.2-1.3); Blood Urea Nitrogen 13 mg/dL (7-17); CRP 1.5 mg/dL (<1.0); Calcium 8.5 mg/dL (8.4-10.2); Carbon Dioxide 26 mmol/L (22-30); Chloride 110 mmol/L (98-107); Estimated CRCL calculation 85 ml/min; Estimated Glomerular Filt Rate > 60; Glucose 93 mg/dL (65-105); Sodium 139 mmol/L (137-145)
[2020-03-31] MEDS: ALBUTEROL SULFATE NEB 2.5 MG/0.5 ML INH INHALATION ×2 (08:25→21:21)
[2020-03-31] MEDS: IPRATROPIUM BR 0.02% INH SOLN 0.5 MG/2.5 ML VIAL INHALATION ×2 (08:25→21:21)
[2020-03-31 09:11] LABS: Glucose Point of Care 85 (65-105)
[2020-03-31] MEDS: ENOXAPARIN 80 MG/0.8 ML SYRINGE 75 MG SUB-Q (10:00)
[2020-03-31] MEDS: CHOLECALCIFEROL 1,000 UNITS TABLET 2000 UNITS PO (10:01)
[2020-03-31] MEDS: SOLIFENACIN 5 MG TABLET PO (10:01)
[2020-03-31] MEDS: polyethylene glycoL 3350 17 GM POWD.PACK FEED TUBE (10:01)
[2020-03-31] MEDS: CITALOPRAM HYDROBROMIDE 20 MG TABLET 40 MG PO (10:02)
[2020-03-31] MEDS: TRIAMCINOLONE ACET 0.1% CREAM 15 GM TUBE 1 APPLIC TOPICAL ×4 (10:02→21:50)
--- NOTE | 2020-03-31 12:26 | PM.PNCARD ---
Progress Note: A&P Assessment and Plan (1) COVID-19 virus infection: Code(s): U07.1 - COVID-19 Status: Acute Assessment and Plan: she is recovering (2) HTN (hypertension), benign: Code(s): I10 - Essential (primary) hypertension Status: Acute Assessment and Plan: at goal (3) Tachycardia: Code(s): R00.0 - Tachycardia, unspecified Status: Acute Assessment and Plan: likely this is normal physiological reaction to her significant illness. She is also deconditioned and heart rate is likely simply responsive to normal workload given her recent severe illness. Echocardiogram performed at bedside. I was present for partial review. She has a normal appearing ejection fraction. She has a small pericardial effusion which is not physiologically significant. Thyroid function is normal. At this point, no further cardiac workup indicated. could consider CT scan chest to evaluate for pulmonary emboli But will defer to hospitalist. She certainly is at high risk given hypercoagulable state during Coronavirus although not highly likely given the fact that she has Received prophylaxis (4) Hypothyroidism, unspecified: Qualifiers: Hypothyroidism type: unspecified Qualified Code(s): E03.9 - Hypothyroidism, unspecified Code(s): E03.9 - Hypothyroidism, unspecified Status: Chronic Assessment and Plan: T4 is normal Subjective Date/time seen: 03/31/20 12:26 Interval history: Reason for consult: tachycardia date of service 03/31/2020: Feels fine. No chest pain or shortness of breath. Review of Systems Review of Systems: All systems reviewed & are unremarkable except as noted in HPI and below Constitutional: Constitutional: Denies excessive sweating and Denies weakness Eyes: Eyes: Denies blurry vision ENT: Reports Normal hearing present and Denies neck pain Cardiovascular: Cardiovascular: Denies chest pain and Denies dyspnea Respiratory: Respiratory: Denies dyspnea Gastrointestinal: Gastrointestinal: Denies abdominal pain Genitourinary: Genitourinary: Denies flank pain Musculoskeletal: Musculoskeletal: Denies neck pain and Denies numbness Integumentary/Breasts: Skin/Breast: Denies dry skin Neurologic: Reports Normal hearing present, Denies behavioral changes, Denies numbness and Denies weakness Psychiatric: Psychiatric: Denies behavioral changes Endocrine: Endocrine: Denies excessive sweating Hematologic/Lymphatic: Hematologic/Lymphatic: Denies easy bleeding Allergic/Immunologic: Allergic/Immunologic: Denies GI upset with certain foods Exam Narrative: Exam Narrative: Alert and oriented. Appears to be in no acute distress. She is pleasant and appropriate Const: General: comfortable and no acute distress HENMT: General nose exam: Normal nares present Eyes: Sclera: sclerae normal Neck: Neck: supple and no JVD Chest: Other: no reproducible chest wall pain to palpation Resp: Auscultation: diminished lung sounds Other: fine crackles are heard bilaterally Cardio: Rate: tachycardic Rhythm: regular rhythm Heart sounds: no murmurs Skin: General skin exam: normal color Neuro: Cranial nerves: Yes Normal hearing present Cognition (Neuro): normal cognition Speech: normal speech Extrem: General: normal to inspection Psych: Mental Status: mental status grossly normal Objective Data Vital Signs Vital Signs: Vital Signs - 24 hr 03/30/20 12:53 03/30/20 16:00 03/30/20 20:00 Temperature 36.9 C 36.3 C L 36.9 C Pulse Rate 117 H 90 Respiratory Rate 18 18 Blood Pressure 125/79 131/75 Pulse Oximetry 99 97 03/30/20 22:00 03/30/20 22:11 03/31/20 00:00 Temperature 36.8 C Pulse Rate 82 82 95 Respiratory Rate 18 18 18 Blood Pressure 120/61 Pulse Oximetry 98 03/31/20 04:00 03/31/20 08:00 03/31/20 08:25 Temperature 36.7 C 36.7 C Pulse Rate 89 87 Respiratory Rate 18 20 Blood Pres
[2020-03-31 12:35] LABS: Glucose Point of Care 84 (65-105)
--- NOTE | 2020-03-31 13:13 | P.CDI_ITS ---
CDI Query Clarification Request - Shock, unspecified has been documented. Please further specify type of shock: * Hypovolemic * Cardiogenic * Septic * Other * Unable to determine
--- NOTE | 2020-03-31 13:13 | WPDCDIQUERY2 ---
CDI Query Clarification Request - Shock, unspecified has been documented. Please further specify type of shock: Hypovolemic Cardiogenic Septic Other Unable to determine
[2020-03-31 17:02] LABS: Glucose Point of Care 86 (65-105)
--- NOTE | 2020-03-31 17:18 | PM.IMPN ---
Progress Note: A&P Assessment and Plan (1) Acute respiratory failure with hypoxia: Code(s): J96.01 - Acute respiratory failure with hypoxia Status: Acute Assessment and Plan: 03/31/20 17:18 Due to COVID-19. Continue supportive care on mechanical ventilation. Pt is on high dose lovenox. Interval history: 64yo female with hx of MS here for acute respiratory failure related to COVID. Unfortunately, pt had to be intubated gradually improvement over past two weeks, hopeful to come off ventilator soon. on 03/25 patient was extubated and today patient was seen in the room, patient is anxious most to go home explained to her her oxygen requirement is high and she is high risk, and we cannot discharge at present, I spoke with the patient on phone on 03/26 and he is in agreement with the plan, today patient clinically stable still requiring 3 L of oxygen, there is no fever, Today he will try to wean patient off oxygen, currently patient is off oxygen and resting will continue to monitor and further recommendation to follow, on 03/28 Patient was placed on room air and since then patient oxygen saturation is close to >90 % and clinically stable, however patient's heart rate is keep climbing at rest as well as with exertion possibly due to anxiety patient is given xanax with some relief however still has a tachycardia, patient with COVID-19 positive and history rheumatoid arthritis will consult Cardiology further recommendation will continue to monitor the patient and further recommendation to follow, patient has completed the course of dexamethasone and Remdesivir patient was also found multifocal pneumonia and treated with Levophed repeat chest x-ray shows improvement however had been doing very well have been afibrial however on 03/30 patient had a fever 101.4 patient was seen by Cardiology and suspect tachycardia secondary to physiological reaction to patient current condition and and patient had a cardiac patient has a normal ejection fraction there is no pericardial effusion does not suspect any injury to the heart due to COVID-19, patient is clinically is clinically stable and no fever for over 24 and not requiring any oxygen, consult Dr. mauricio for his opinion before discharging the patient possibly tomorrow. (2) Shock: Code(s): R57.9 - Shock, unspecified Status: Acute Assessment and Plan: Hypotension treated with fluids small boluses (3) COVID-19 virus infection: Code(s): U07.1 - COVID-19 Status: Acute Assessment and Plan: Positive COVID-19 testing on 03/07/2020. Received convalescent plasma 03/14 and also remdesivir. Dexamethasone day #10 of 10. (4) Multiple sclerosis: Code(s): G35 - Multiple sclerosis Status: Chronic Assessment and Plan: Stable. Will need PT/OT after extubation. (5) Depression: Qualifiers: Depression Type: unspecified Qualified Code(s): F32.9 - Major depressive disorder, single episode, unspecified Code(s): F32.9 - Major depressive disorder, single episode, unspecified Status: Chronic Assessment and Plan: Stable.Continue citalopram via NG (6) Hypothyroidism, unspecified: Qualifiers: Hypothyroidism type: unspecified Qualified Code(s): E03.9 - Hypothyroidism, unspecified Code(s): E03.9 - Hypothyroidism, unspecified Status: Chronic Assessment and Plan: Stable. Continue levothyroxine via NG (7) DVT prophylaxis: Code(s): Z29.9 - Encounter for prophylactic measures, unspecified Status: Acute Assessment and Plan: Lovenox on high dose (8) Encephalopathy: Code(s): G93.40 - Encephalopathy, unspecified Status: Acute Assessment and Plan: Pt is off precedex Subjective Date/time seen: 03/31/20 17:18 Due to COVID-19. Continue supportive care on mechanical ventilation. Pt is on high dose lovenox. Interv
[2020-03-31 23:27] LABS: Glucose Point of Care 108 (65-105)
[2020-04-01] VITALS (7 sets, daily range): BP systolic 116–128; BP diastolic 50–77; PULSE 85–104; RESP 18–24; TEMP 36.4–36.8; O2SAT 94–97
[2020-04-01] MEDS: CENTRAL LINE FLUSH 10 ML IV PUSH (04:30)
[2020-04-01 04:41] LABS: Basophils Absolute Auto 0.1 K/mm3 (0.0-0.1); Basophils Percent Auto 0.9 % (0.2-1.2); Eosinophils Absolute Auto 0.3 K/mm3 (0-0.3); Hematocrit 30.9 % (37.0-47.0); Hemoglobin 9.7 g/dL (12.0-15.0); Immature Granulocyte Absolute 0.12 K/mm3 (0.00-0.031); Immature Granulocyte Percent A 1.2 % (0-0.5); Lymphocytes Percent Auto 15.7 % (18.3-44.2); Mean Corpuscular HGB Conc 31.4 g/dl (32-36); Mean Corpuscular Hemoglobin 29.9 pg (26-34); Mean Corpuscular Volume 95.4 fl (80-100); Mean Platelet Volume 9.1 fl (7.4-10.4); Monocytes Absolute Auto 0.7 K/mm3 (0.1-0.6); Monocytes Percent Auto 6.8 % (2.6-8.5); Neutrophils Absolute Auto 7.4 K/mm3 (1.3-6.7); Neutrophils Percent Auto 72.4 % (45.5-73.1); Platelet Count Result 401 k/mm3 (150-375); Red Blood Count 3.24 M/mm3 (4.2-5.4); Red Cell Distribution Width 14.8 % (11.5-14.5); White Blood Count 10.2 K/mm3 (4.5-10.0)
[2020-04-01 05:22] LABS: Alanine Aminotransferase 32 U/L (4-35); Alkaline Phosphatase 53 U/L (38-126); Anion Gap 4 mmol/L (8-16); Aspartate Amino Transferase 32 U/L (14-36); Bilirubin,Total 0.4 mg/dL (0.2-1.3); Blood Urea Nitrogen 15 mg/dL (7-17); CRP 1.3 mg/dL (<1.0); Calcium 8.2 mg/dL (8.4-10.2); Carbon Dioxide 25 mmol/L (22-30); Chloride 109 mmol/L (98-107); Estimated CRCL calculation 73 ml/min; Estimated Glomerular Filt Rate > 60; Glucose 103 mg/dL (65-105); Sodium 138 mmol/L (137-145)
[2020-04-01] MEDS: LEVOTHYROXINE SODIUM 100 MCG TABLET PO (06:13)
[2020-04-01 06:55] LABS: Glucose Point of Care 93 (65-105)
[2020-04-01] MEDS: CHOLECALCIFEROL 1,000 UNITS TABLET 2000 UNITS PO (07:56)
[2020-04-01] MEDS: ENOXAPARIN 80 MG/0.8 ML SYRINGE 75 MG SUB-Q (07:57)
[2020-04-01] MEDS: CITALOPRAM HYDROBROMIDE 20 MG TABLET 40 MG PO (07:57)
[2020-04-01] MEDS: TRIAMCINOLONE ACET 0.1% CREAM 15 GM TUBE 1 APPLIC TOPICAL ×2 (07:58→13:00)
[2020-04-01] MEDS: polyethylene glycoL 3350 17 GM POWD.PACK FEED TUBE (07:58)
[2020-04-01] MEDS: SOLIFENACIN 5 MG TABLET PO (07:58)
[2020-04-01] MEDS: ALBUTEROL SULFATE NEB 2.5 MG/0.5 ML INH INHALATION (08:56)
[2020-04-01] MEDS: IPRATROPIUM BR 0.02% INH SOLN 0.5 MG/2.5 ML VIAL INHALATION (08:56)
[2020-04-01] MEDS: NEOMYCIN/POLYMYXIN/BACITRACIN OINTMENT PACKET 1 PACKET (12:45)
[2020-04-01 12:59] LABS: Glucose Point of Care 80 (65-105)
--- NOTE | 2020-04-01 14:19 | PM.DS ---
DS: Admitting Diagnosis Admitting Diagnosis Admitting Diagnosis: acute respiratory failure/covid infection DS: Discharge Diagnosis Discharge Diagnosis (1) Acute respiratory failure with hypoxia: Code(s): J96.01 - Acute respiratory failure with hypoxia Status: Acute Assessment and Plan: 03/31/20 17:18 Due to COVID-19. Continue supportive care on mechanical ventilation. Pt is on high dose lovenox. Interval history: 64yo female with hx of MS here for acute respiratory failure related to COVID. Unfortunately, pt had to be intubated gradually improvement over past two weeks, hopeful to come off ventilator soon. on 03/25 patient was extubated and today patient was seen in the room, patient is anxious most to go home explained to her her oxygen requirement is high and she is high risk, and we cannot discharge at present, I spoke with the patient on phone on 03/26 and he is in agreement with the plan, today patient clinically stable still requiring 3 L of oxygen, there is no fever, Today he will try to wean patient off oxygen, currently patient is off oxygen and resting will continue to monitor and further recommendation to follow, on 03/28 Patient was placed on room air and since then patient oxygen saturation is close to >90 % and clinically stable, however patient's heart rate is keep climbing at rest as well as with exertion possibly due to anxiety patient is given xanax with some relief however still has a tachycardia, patient with COVID-19 positive and history rheumatoid arthritis will consult Cardiology further recommendation will continue to monitor the patient and further recommendation to follow, patient has completed the course of dexamethasone and Remdesivir patient was also found multifocal pneumonia and treated with Levophed repeat chest x-ray shows improvement however had been doing very well have been afibrial however on 03/30 patient had a fever 101.4 patient was seen by Cardiology and suspect tachycardia secondary to physiological reaction to patient current condition and and patient had a cardiac patient has a normal ejection fraction there is no pericardial effusion does not suspect any injury to the heart due to COVID-19, patient is clinically is clinically stable and no fever for over 24 and not requiring any oxygen, consult Dr. mauricio for his opinion before discharging the patient possibly tomorrow. (2) Shock: Code(s): R57.9 - Shock, unspecified Status: Acute Assessment and Plan: Hypotension treated with fluids small boluses (3) COVID-19 virus infection: Code(s): U07.1 - COVID-19 Status: Acute Assessment and Plan: Positive COVID-19 testing on 03/07/2020. Received convalescent plasma 03/14 and also remdesivir. Dexamethasone day #10 of . (4) Multiple sclerosis: Code(s): G35 - Multiple sclerosis Status: Chronic Assessment and Plan: Stable. Will need PT/OT after extubation. (5) Depression: Qualifiers: Depression Type: unspecified Qualified Code(s): F32.9 - Major depressive disorder, single episode, unspecified Code(s): F32.9 - Major depressive disorder, single episode, unspecified Status: Chronic Assessment and Plan: Stable.Continue citalopram via NG (6) Hypothyroidism, unspecified: Qualifiers: Hypothyroidism type: unspecified Qualified Code(s): E03.9 - Hypothyroidism, unspecified Code(s): E03.9 - Hypothyroidism, unspecified Status: Chronic Assessment and Plan: Stable. Continue levothyroxine via NG (7) DVT prophylaxis: Code(s): Z29.9 - Encounter for prophylactic measures, unspecified Status: Acute Assessment and Plan: Lovenox on high dose (8) Encephalopathy: Code(s): G93.40 - Encephalopathy, unspecified Status: Acute Assessment and Plan: Pt is off precedex DS: Summary Hospital Course Reas
--- NOTE | 2020-04-01 14:59 | PM.PNCARD ---
Progress Note: A&P Assessment and Plan (1) COVID-19 virus infection: Code(s): U07.1 - COVID-19 Status: Acute Assessment and Plan: she is recovering (2) HTN (hypertension), benign: Code(s): I10 - Essential (primary) hypertension Status: Acute Assessment and Plan: at goal (3) Tachycardia: Code(s): R00.0 - Tachycardia, unspecified Status: Acute Assessment and Plan: likely this is normal physiological reaction to her significant illness. She is also deconditioned and heart rate is likely simply responsive to normal workload given her recent severe illness. Echocardiogram shows normal ejection fraction. She has a small pericardial effusion which is not physiologically significant. Thyroid function is normal. At this point, no further cardiac workup indicated. could consider CT scan chest to evaluate for pulmonary emboli But will defer to hospitalist. She certainly is at high risk given hypercoagulable state during Coronavirus although not highly likely given the fact that she has Received prophylaxis (4) Hypothyroidism, unspecified: Qualifiers: Hypothyroidism type: unspecified Qualified Code(s): E03.9 - Hypothyroidism, unspecified Code(s): E03.9 - Hypothyroidism, unspecified Status: Chronic Assessment and Plan: T4 is normal Subjective Date/time seen: 04/01/20 14:59 Interval history: Reason for consult: tachycardia date of service 04/01/2020: Feels fine. No chest pain or shortness of breath. dressed and ready to go home Review of Systems Review of Systems: All systems reviewed & are unremarkable except as noted in HPI and below Constitutional: Constitutional: Denies excessive sweating and Denies weakness Eyes: Eyes: Denies blurry vision ENT: Reports Normal hearing present and Denies neck pain Cardiovascular: Cardiovascular: Denies chest pain and Denies dyspnea Respiratory: Respiratory: Denies dyspnea Gastrointestinal: Gastrointestinal: Denies abdominal pain Genitourinary: Genitourinary: Denies flank pain Musculoskeletal: Musculoskeletal: Denies neck pain and Denies numbness Integumentary/Breasts: Skin/Breast: Denies dry skin Neurologic: Reports Normal hearing present, Denies behavioral changes, Denies numbness and Denies weakness Psychiatric: Psychiatric: Denies behavioral changes Endocrine: Endocrine: Denies excessive sweating Hematologic/Lymphatic: Hematologic/Lymphatic: Denies easy bleeding Allergic/Immunologic: Allergic/Immunologic: Denies GI upset with certain foods Exam Narrative: Exam Narrative: Alert and oriented. Appears to be in no acute distress. She is pleasant and appropriate Const: General: comfortable and no acute distress HENMT: General nose exam: Normal nares present Eyes: Sclera: sclerae normal Skin: General skin exam: normal color Neuro: Cranial nerves: Yes Normal hearing present Cognition (Neuro): normal cognition Speech: normal speech Extrem: General: normal to inspection Psych: Mental Status: mental status grossly normal Objective Data Vital Signs Vital Signs: Vital Signs - 24 hr 03/31/20 16:00 03/31/20 20:00 03/31/20 21:22 Temperature 37.1 C Pulse Rate 110 H 103 H 106 H Respiratory Rate 20 18 Blood Pressure 122/76 Pulse Oximetry 97 93 03/31/20 21:30 03/31/20 21:45 03/31/20 23:30 Temperature 37.1 C 37.0 C Pulse Rate 104 H 120 H 104 H Respiratory Rate 18 16 16 Blood Pressure 117/63 120/58 L Pulse Oximetry 94 95 04/01/20 00:00 04/01/20 04:00 04/01/20 04:15 Temperature 36.8 C Pulse Rate 99 85 97 Respiratory Rate 20 Blood Pressure 116/77 Pulse Oximetry 94 04/01/20 08:00 04/01/20 08:55 04/01/20 09:05 Temperature 36.4 C Pulse Rate 102 H 96 98 Respiratory Rate 24 H 18 18 Blood Pressure 126/50 L Pulse Oximetry 95 94 04/01/20 12:00 Temperature 36.6 C Pulse Rate 98 Respiratory Rate 20 Blood Pressure
--- NOTE | 2020-04-26 12:26 | P.CONUR_ITS ---
Urology Consult Note HPI Date Seen: 04/26/20 Requesting Physician: Jae Recinos MD Primary Care Provider: Joni Del Castillo MD Consult Narrative Narrative: Raquel Harper is a 65 year old female. Our group was consulted on her but she was unable to be seen prior to discharge. [facility] Past Medical History Medical History COVID-19 Depression Encounter for removal of skin lesion Multiple sclerosis Overactive bladder Psoriasis Surgical History Surgical History H/O partial thyroidectomy H/O: hysterectomy History of tonsillectomy Hx of cholecystectomy Family History Family History Father Bladder cancer Other Family history of multiple sclerosis Social History Social History Social History: Patient lives with her who is a durable power [place] attorney for healthcare. The patient is a full code. She has 2 children. The patient used to smoke many years ago. No marijuana or street drugs. No alcohol. She is disabled. Smoking status: Former smoker Alcohol intake: never Substance use: never Gender identity (if verbalized by the patient): Female Spiritual care concerns: No Meds Home Medications and Allergies Home Medications Medication Instructions Recorded Confirmed Type citalopram 40 mg tablet 40 mg PO DAILY #90 tablet 08/25/19 04/21/20 Rx dalfampridine 10 mg 10 mg PO DAILY tablet 08/25/19 04/21/20 History tablet,extended release,12 hr levothyroxine 100 mcg tablet 100 mcg PO DAILY 08/25/19 04/21/20 History solifenacin 5 mg tablet 5 mg PO DAILY 08/25/19 04/21/20 History modafinil 200 mg tablet 200 mg PO QAM #90 tablet 09/29/19 04/21/20 Rx triamcinolone acetonide 0.1 % 1 applic TOPICAL QID #80 gm 12/08/19 04/21/20 Rx topical cream hydroxyzine HCl 25 mg tablet 25 mg PO QID PRN #30 tablet 01/27/20 04/21/20 Rx ascorbate calcium (vitamin C) 1,000 mg PO DAILY 03/18/20 04/21/20 History polyethylene glycol 3350 [Miralax] 17 g FEEDING TUBE QAM #30 ea 04/01/20 04/21/20 Rx cholecalciferol (vitamin D3) 50 2,000 unit PO DAILY #90 tablet 04/24/20 Rx mcg (2,000 unit) tablet Allergies Allergy/AdvReac Type Severity Reaction Status Date / Time Sulfa (Sulfonamide Allergy Unknown possible Verified 04/20/20 11:21 Antibiotics) reaction?? Results Labs CBC & Chem 7: 04/01/20 04:33 04/01/20 04:33 Quality VTE Prophylaxis VTE prophylaxis: mechanical ordered and pharmacologic ordered
== END 2020-04-01 14:45 | disposition home health service (06) | DRG 207 ==
LOC: ANHED 20:23 → ANHICU 03-14 16:05 → ANH3MEDSUR 03-27 14:22 → ANHICU 04-04 15:06
PROVIDERS: Internal Medicine; Internal Medicine Cardiovascular Disease; Nurse Practitioner; Admitting Provider Family Medicine; Emergency Provider Emergency Medicine; PCP Family Medicine; Visit Provider Family Medicine
DX: U07.1 COVID-19 (principal); J12.89 Other viral pneumonia; J96.01 Acute respiratory failure with hypoxia; R57.9 Shock, unspecified; G93.40 Encephalopathy, unspecified; R00.0 Tachycardia, unspecified; G35 Multiple sclerosis; E89.0 Postprocedural hypothyroidism; F32.9 Major depressive disorder, single episode, unspecified; F41.9 Anxiety disorder, unspecified; I10 Essential (primary) hypertension; Z79.899 Other long term (current) drug therapy; Z88.2 Allergy status to sulfonamides
CPT/HCPCS: 36415; 36430; 36569; 36600; 70450; 71045; 80048; 80053; 81001; 82140; 82375; 82565; 82728; 82805; 83050; 83605; 83615; 83735; 84100; 84436; 84443; 84460; 84484; 85025; 85027; 85380; 85610; 85730; 86140; 86850; 86900; 86901; 87040; 87070; 87077; 87086; 87088; 87186; 87205; 92526; 92610; 93005; 93306; 93970; 94002; 94003; 94640; 96365; 96367; 96375; 97110; 97161; 97165; 97530; 97535; 99291; A9270; C1751; C9113; J0131; J0330; J0456; J0692; J0696; J1100; J1650; J1815; J1940; J1956; J2250; J3010; J3480; J7030; J7050; P9059

== ENCOUNTER 2022-04-04 11:49 | Outpatient (CLI) | payer MEDICARE, MEDICAID, SELFPAY ==
[2022-04-04 19:58] LABS: Alanine Aminotransferase 25 U/L (6-35); Albumin Level 4.4 g/dL (3.5-5.1); Alkaline Phosphatase 72 U/L (38-126); Anion Gap 11 mmol/L (8-16); Aspartate Amino Transferase 44 U/L (14-36); Bilirubin,Total 0.3 mg/dL (0.2-1.3); Blood Urea Nitrogen 19 mg/dL (7-17); Carbon Dioxide 26 mmol/L (22-30); Chloride 105 mmol/L (98-107); Estimated Glomerular Filt Rate > 60; Glucose 90 mg/dL (65-110); Potassium 4.2 mmol/L (3.4-5.0); Sodium 142 mmol/L (137-145)
[2022-04-04 20:05] LABS: Vitamin D 25 Hydroxy 29.8 ng/mL
[2022-04-04 20:23] LABS: Thyroid Stimulating Hormone 0.557 uIU/mL (0.465-4.680)
== END 2022-04-04 11:50 | disposition home or self-care (01) ==
LOC: ANHGOSHLAB 11:53
PROVIDERS: PCP Family Medicine; Visit Provider Family Medicine
DX: E03.9 Hypothyroidism, unspecified (principal); E55.9 Vitamin D deficiency, unspecified
CPT/HCPCS: 36415; 80053; 82306; 84443

== ENCOUNTER 2022-10-03 12:35 | Outpatient (CLI) | payer MEDICARE, MEDICAID, SELFPAY ==
[2022-10-03 20:09] LABS: Vitamin D 25 Hydroxy 40.8 ng/mL
[2022-10-03 20:23] LABS: Alanine Aminotransferase 29 U/L (6-35); Albumin Level 4.4 g/dL (3.5-5.1); Alkaline Phosphatase 72 U/L (38-126); Anion Gap 4 mmol/L (8-16); Aspartate Amino Transferase 43 U/L (14-36); Bilirubin,Total 0.4 mg/dL (0.2-1.3); Blood Urea Nitrogen 17 mg/dL (7-17); Calcium 9.3 mg/dL (8.4-10.2); Carbon Dioxide 29 mmol/L (22-30); Chloride 106 mmol/L (98-107); Estimated Glomerular Filt Rate > 60; Glucose 71 mg/dL (65-110); Potassium 4.2 mmol/L (3.4-5.0); Sodium 139 mmol/L (137-145)
== END 2022-10-03 12:36 | disposition home or self-care (01) ==
LOC: ANHGOSHLAB 12:37
PROVIDERS: PCP Family Medicine; Visit Provider Family Medicine
DX: E03.9 Hypothyroidism, unspecified (principal); E55.9 Vitamin D deficiency, unspecified
CPT/HCPCS: 36415; 80053; 82306; 84443

== ENCOUNTER 2023-02-13 10:49 | Outpatient (CLI) | payer MEDICARE, MEDICAID, SELFPAY ==
--- NOTE | ~2023-02-13 | XR_ITS ---
XR finger 1st RT min 2V DATE: 02/13/2023 11:11 INDICATION: Bilateral first digit pain TECHNIQUE: 3 views COMPARISON: None FINDINGS: There is prominent joint space narrowing and spurring at the first carpal metacarpal joint consistent with severe osteoarthritis. There is joint space narrowing and mild spurring at the interphalangeal joint of the first digit. No fracture or dislocation, periosteal reaction or bone destruction. IMPRESSION: Severe osteoarthritis at the right first carpometacarpal joint Mild to moderate osteophytic change at the interphalangeal joint of the first digit Reviewed, dictated and finalized at location L. IMPRESSION: Severe osteoarthritis at the right first carpometacarpal joint Mild to moderate osteophytic change at the interphalangeal joint of the first d igit
--- NOTE | ~2023-02-13 | XR_ITS ---
XR finger 1st LT min 2V DATE: 02/13/2023 11:10 INDICATION: Chronic bilateral first digit pain. No injury or surgery. TECHNIQUE: 3 views of left first digit COMPARISON: None FINDINGS: There is joint space narrowing and spurring at the first carpal metacarpal joint consistent with moderate osteopenia arthritis. There is narrowing and mild spurring at the first metacarpophala ngeal and interphalangeal joints, consistent with osteoarthritis. No fracture, dislocation, periosteal reaction or bone destruction, subcutaneous emphysema or radiopaq ue soft tissue foreign body is noted. IMPRESSION: Polyarticular osteoarthritis Reviewed, dictated and finalized at location L.
== END 2023-02-13 10:50 | disposition home or self-care (01) ==
PROVIDERS: PCP Family Medicine; Visit Provider Nurse Practitioner Family
DX: M19.041 Primary osteoarthritis, right hand (principal); M19.042 Primary osteoarthritis, left hand
CPT/HCPCS: 73140

== ENCOUNTER 2023-04-07 09:46 | Outpatient (CLI) | payer MEDICARE, MEDICAID, SELFPAY ==
[2023-04-07 19:52] LABS: Alanine Aminotransferase 23 U/L (6-35); Albumin Level 4.2 g/dL (3.5-5.1); Alkaline Phosphatase 61 U/L (38-126); Anion Gap 5 mmol/L (8-16); Aspartate Amino Transferase 38 U/L (14-36); Bilirubin,Total 0.5 mg/dL (0.2-1.3); Blood Urea Nitrogen 14 mg/dL (7-17); Calcium 8.8 mg/dL (8.4-10.2); Carbon Dioxide 27 mmol/L (22-30); Chloride 108 mmol/L (98-107); Estimated Glomerular Filt Rate > 60; Glucose 84 mg/dL (65-110); Potassium 3.9 mmol/L (3.4-5.0); Sodium 140 mmol/L (137-145); Vitamin D 25 Hydroxy 40.2 ng/mL
[2023-04-07 20:19] LABS: Thyroid Stimulating Hormone 0.952 uIU/mL (0.465-4.680)
== END 2023-04-07 09:47 | disposition home or self-care (01) ==
PROVIDERS: PCP Family Medicine; Visit Provider Family Medicine
DX: E03.9 Hypothyroidism, unspecified (principal); E55.9 Vitamin D deficiency, unspecified
CPT/HCPCS: 36415; 80053; 82306; 84436; 84443

== ENCOUNTER 2023-09-30 10:40 | Outpatient (CLI) | payer MEDICARE, MEDICAID, SELFPAY ==
[2023-09-30 13:41] LABS: Thyroid Stimulating Hormone 0.673 uIU/mL (0.465-4.680)
== END 2023-09-30 10:41 | disposition home or self-care (01) ==
LOC: ANHGOSHLAB 10:41
PROVIDERS: PCP Family Medicine; Visit Provider Family Medicine
DX: E03.9 Hypothyroidism, unspecified (principal)
CPT/HCPCS: 36415; 84443

== ENCOUNTER 2024-03-24 09:20 | Outpatient (NON) | payer MEDICARE, MEDICAID, SELFPAY | END 2024-03-24 09:21 | disposition home or self-care (01) | PROVIDERS: PCP Family Medicine; Visit Provider Nurse Practitioner Family | DX: N30.00 Acute cystitis without hematuria (principal) | CPT/HCPCS: 87086; 87088 ==

== ENCOUNTER 2024-09-13 14:51 | Outpatient (NON) | payer MEDICARE, MEDICAID, SELFPAY ==
--- OUTSIDE RECORDS SUMMARY | 2024-09-13 17:38 | XMS_ITS | Encounter Summary ---
Author Organization [employer] Address 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
--- OUTSIDE RECORDS SUMMARY | 2024-09-13 17:38 | XMS_ITS | Encounter Summary ---
Author Organization [employer] Address [address] [place] [address] Care Team Providers Care Service Parts Coordinator Name Role Phone Joni Del Castillo MD Primary Care Provider +1- [phone] Encounter Details Date Type Department Care Team (Latest Contact Info) Description 12/30/2000 Outpatient Historical [facility] Buffy Gill MD [address] [facility] [address] [place] [id number] Multiple sclerosis (CMS/HCC) (Primary Dx) Social History Tobacco Use Types Packs/Day Years Used Date Smoking Tobacco: Never Assessed Comments Unknown Sex and Gender Information Value Date Recorded Sex Assigned at Not on file 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
--- OUTSIDE RECORDS SUMMARY | 2024-09-13 17:38 | XMS_ITS | Encounter Summary ---
Author Organization [email or web address] Address 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
--- OUTSIDE RECORDS SUMMARY | 2024-09-13 17:38 | XMS_ITS | Referral Summary ---
Author Organization [facility] Address [address] [place] [address] Care Team Providers Care Extractor Operator Name Role Phone Joni Osorio MD Primary Care Provider +1- [phone] Allergies Active Allergy Reactions Criticality Noted Date Comments Sulfa (Sulfonamide Antibiotics) Unknown 11/2017 Medications levothyroxine (SYNTHROID, LEVOTHROID) 100 mcg tablet Take 100 mcg by mouth daily. Active citalopram (CeleXA) 40 mg tablet Take 40 mg by mouth daily. Active modafinil (PROVIGIL) 200 mg tablet Take 200 mg by mouth daily. Active hydrOXYzine (ATARAX) 25 mg tablet Take 25 mg by mouth 3 (three) times a day as needed for itching. Active cholecalciferol (VITAMIN D-3) 50,000 unit capsule Take 50,000 Units by mouth every 14 (fourteen) days. Active solifenacin (VESIcare) 5 mg tablet Take 5 mg by mouth daily Active dalfampridine 10 mg tablet extended release 12 hrIndications:Mu ltiple sclerosis (HCC) Take 1 tablet (10 mg total) by mouth daily 90 tablet 1 03/13/2021 Active Active Problems Problem Noted Date Diagnosed Date Multiple sclerosis 01/11/2018 Overview (09/05/2020): MS Medication History: RRMS/SPMS Symptom onset: 1979 Diagnosis: 1982 1. Betaseron: 07/1993-12/1998 2. Copaxone: 01/1999 x one month. Injection reactions. 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 Recurrent major depressive d isorder, in full remission (CMS/[facility]) 01/11/2018 Neurogenic dysfunction of the urinary bladder Monoparesis of leg ([facility]) 01/11/2018 Closed fracture of multiple ribs of left side Pruritic rash 01/28/2014 Cognitive dysfunction accompanying multiple scle rosis 01/05/2014 Social History Tobacco Use Types Packs/Day Years Used Date Smoking Tobacco: Former Smokeless Tobacco: Never Alcohol Use Standard Drinks/Week Comments Yes 0 (1 standard drink = 0.6 oz pur e alcohol) occasional Personal Safety Answer Date Recorded Getting School Help Needed Not on file 10/11 Comments Unknown Sex and Gender Information Value Date Recorded Sex Assigned at Not on file Legal Sex Female 11:14 AM CARD HAND Gender Identity Not on file Sexual Orientation Not on file Last Filed Vital Signs Vital Sign Reading Time Taken Comments Blood Pressure 122/80 09/05/2020 2:58 PM CARD HAND Pulse 64 09/05/2020 2:58 PM CARD HAND Temperature - - Respiratory Rate 16 09/05/2020 2:58 PM CARD HAND Oxygen Saturation - - Inhaled Oxygen Concentration - - Weight 70.9 kg (156 lb 3.2 oz) 09/05/2020 2:58 P M CARD HAND Height 167.6 cm (5' 6 ) 09/05/2020 2:58 PM CARD HAND Body Mass Index 25.21 09/05/2020 2:58 PM CARD HAND Plan of Treatment Not on file Insurance [facility] MEDICARE Care Teams Extractor Operator Relationship Specialty Start Date End Date Joni Osorio MD [address] [facility] [address] [place] [address] PCP - General Emergency Medicine 09/16/17
--- OUTSIDE RECORDS SUMMARY | 2024-09-13 17:38 | XMS_ITS | Encounter Summary ---
Author Organization [facility] Address [address] [place] [address] Care Team Providers Care Sound Printer Name Role Phone Joni Del Castillo MD Primary Care Provider +1- [phone] Encounter Details Date Type Department Care Team (Late st Contact Info) Description 04/25/2005 Outpatient [place] [id number] [facility] 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
--- OUTSIDE RECORDS SUMMARY | 2024-09-13 17:38 | XMS_ITS | Encounter Summary ---
Author Organization [employer] Address [address] [place] [address] Care Team Providers Care Oracle Security Consultant Name Role Phone Joni Del Castillo MD Primary Care Provider +1- [phone] Encounter Details Date Type Department Care Team (Late st Contact Info) Description 04/01/2006 Outpatient [facility] Division of Neurology [address] [address] Buffy Gill MD [address] [facility] [address] [place] [address] Social History Tobacco Use Types Packs/Day Years Used Date Smoking Tobacco: Never Assessed Comments Unknown Sex and Gender Information Value Date Recorded Sex Assigned at Not on file 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
--- OUTSIDE RECORDS SUMMARY | 2024-09-13 17:38 | XMS_ITS | Encounter Summary ---
Author Organization [employer] Address [address] [place] [address] Care Team Providers Care Electrical Logger Name Role Phone Joni Del Castillo MD Primary Care Provider +1- [phone] Encounter Details Date Type Department Care Team (Late st Contact Info) Description 01/09/2004 Outpatient [facility] Division of Neurology [address] [address] Buffy Gill MD [address] [facility] [address] [place] [address] Social History Tobacco Use Types Packs/Day Years Used Date Smoking Tobacco: Never Assessed Comments Unknown Sex and Gender Information Value Date Recorded Sex Assigned at Not on file 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
--- OUTSIDE RECORDS SUMMARY | 2024-09-13 17:38 | XMS_ITS | Encounter Summary ---
Author Organization [employer] Address 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
--- OUTSIDE RECORDS SUMMARY | 2024-09-13 17:38 | XMS_ITS | Encounter Summary ---
Author Organization [employer] Address 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
--- OUTSIDE RECORDS SUMMARY | 2024-09-13 17:38 | XMS_ITS | Encounter Summary ---
Author Organization [employer] Address 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
--- OUTSIDE RECORDS SUMMARY | 2024-09-13 17:38 | XMS_ITS | Encounter Summary ---
Author Organization [employer] Address [address] [place] [address] Care Team Providers Care Counselor Dormitory Name Role Phone Joni Del Castillo MD Primary Care Provider +1- [phone] Encounter Details Date Type Department Care Team (Late st Contact Info) Description 08/10/2002 Outpatient [facility] Division of Neurology [address] [address] Buffy Gill MD [address] [facility] [address] [place] [address] Social History Tobacco Use Types Packs/Day Years Used Date Smoking Tobacco: Never Assessed Comments Unknown Sex and Gender Information Value Date Recorded Sex Assigned at Not on file 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
--- OUTSIDE RECORDS SUMMARY | 2024-09-13 17:38 | XMS_ITS | Clinical Summary ---
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 Active solifenacin (VESICARE) 5 mg Tablet Take 5 mg by mouth daily. Active citalopram (CELEXA) 20 mg tablet Take 20 mg by mouth daily at bedtime. Active ERGOCALCIFEROL, VITAMIN D2, (VITAMIN D ORAL) Take by mouth. Active dalfampridine (AMPYRA) 10 mg Extended Release 12 hour tabletIndication s:Multiple sclerosis (CMS/HCC) Take 1 Tablet (10 mg) by mouth 2 times daily. 60 Tablet 11 07/18/2016 Active dalfampridine (AMPYRA) 10 mg Extended Release 12 hour tabletIndication s:Multiple sclerosis (CMS/HCC) Take 1 Tablet (10 mg) by mouth 2 times daily. 60 Tablet 11 07/22/2017 Active modafinil (PROVIGIL) 200 mg Tablet Take 1 Tablet (200 mg) by mouth daily. 30 Tablet 3 09/15/2017 Active Active Problems Problem Noted Date Diagnosed Date Closed fracture of multiple ribs of left side Neurodegenerative gait disorder 01/05/2015 Pruritic rash 01/28/2014 MS (multiple sclerosis) 01/05/2014 Overview (08/04/2017): MS Medication History: RRMS 1. Betaseron: 07/1993-12/1998 Ampyra 10/2011 25ft xWalk 23.7, 25.0 sec. 01/30/12 17.3, 18.75 sec. 08/04/17 8.33 sec. 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 Gender Identity Not on file Sexual Orientation Not on file Last Filed Vital Signs Vital Sign Reading Time Taken Comments Blood Pressure 115/58 01/02/2017 1:29 PM CDT Pulse 66 01/02/2017 1:29 PM CDT Temperature - - Respiratory Rate - - Oxygen Saturation - - Inhaled Oxygen Concentration - - Weight 72.1 kg (159 lb) 01/02/2017 1:29 PM CDT Height 167.6 cm (5' 6 ) 01/02/2017 1:29 PM CDT Body Mass Index 25.66 01/02/2017 1:29 PM CDT Plan of Treatment Health Maintenance Due Date Last Done Comments DTAP/TDAP/TD VACCINES (1 - Tdap) 1974 BREAST CANCER SCREENING 1995 COLORECTAL SCREENING 2000 Colorectal Cancer Screening 2000 FIT-DNA Q 3 years 2000 FIT/FOBT Q 1 year 2000 Flex Sig/CT Colonography Q 5 years 2000 PNEUMOCOCCAL VACCINE 65+ YEARS (1 of 1 - PCV) 04/21/20 05 ZOSTER VACCINE (1 of 2) 2005 RSV VACCINE (60+ or ) (1 - Risk 60-74 years 1-dose series) 2015 INFLUENZA VACCINE (#1) 2024 OSTEOPOROSIS SCREENING Completed 01/18/2015 Insurance MEDICARE PART A AND B Care Teams Dockworker Relationship Specialty Start Date End Date Joni Del Castillo MD [address] [place] [address] PCP - General 12/30/00
--- OUTSIDE RECORDS SUMMARY | 2024-09-13 17:38 | XMS_ITS | Encounter Summary ---
Author Organization [facility] Address [address] [place] [address] Care Team Providers Care Crop Ranch Hand Name Role Phone Joni Del Castillo MD Primary Care Provider +1- [phone] Encounter Details Date Type Department Care Team (Late st Contact Info) Description 12/16/2000 Outpatient [facility] Division of Neurology [address] [address] Buffy Gill MD [address] [facility] [address] [place] [address] Social History Tobacco Use Types Packs/Day Years Used Date Smoking Tobacco: Never Assessed Comments Unknown Sex and Gender Information Value Date Recorded Sex Assigned at Not on file 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
--- OUTSIDE RECORDS SUMMARY | 2024-09-13 17:38 | XMS_ITS | Encounter Summary ---
Author Organization [employer] Address [address] [place] [address] Care Team Providers Care Commercial Real Estate Paralegal Name Role Phone Joni Del Castillo MD Primary Care Provider +1- [phone] Encounter Details Date Type Department Care Team (Latest Contact Info) Description 01/31/2001 Outpatient Historical HIS OP NEUROLOGY Buffy Gill MD [address] [facility] [address] [place] [phone] Multiple sclerosis (CMS/HCC) (Primary Dx) Social History Tobacco Use Types Packs/Day Years Used Date Smoking Tobacco: Never Assessed Comments Unknown Sex and Gender Information Value Date Recorded Sex Assigned at Not on file 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
--- OUTSIDE RECORDS SUMMARY | 2024-09-13 17:38 | XMS_ITS | Encounter Summary ---
Author Organization [facility] Address [address] [place] [address] Care Team Providers Care Software Configuration Analyst Name Role Phone Joni Del Castillo MD Primary Care Provider +1- [phone] Encounter Details Date Type Department Care Team (Latest Contact Info) Description 04/01/2006 Outpatient Historical HIS [facility] ROS[facility] Gill, Buffy Chew MD [address] [place] [address] Urinary Frequency (Primary Dx) Social History Tobacco Use Types Packs/Day Years Used Date Smoking Tobacco: Never Assessed Comments Unknown Sex and Gender Information Value Date Recorded Sex Assigned at Not on file Legal Sex Female 3:50 AM ONLINE COMMUNITY MANAGER Gender Identity Not on file Sexual Orientation Not on file documented as of this encounter Plan of Treatment Not on file documented as of this encounter Procedures Procedure Name Priority Date/Time Associated Diagnosis Comments URINALYSIS W/REFLEX MICROSCOPIC Routine 04/01/2006 1:02 PM CDT documented in this encounter Results * (ABNORMAL) URINALYSIS (04/01/2006 1:02 PM CDT) COLOR UA Yellow INTERFACE SYSTEM CLARITY UA Slt. Cloudy(A) Clear INTERFACE SYSTEM SPECIFIC GRAVITY UA 1.020 1.001 - 1.035 INTERFACE SYSTEM PH UA 5.5 5.0 - 8.0 INTERFACE SYSTEM LEUKOCYTE ESTERASE UA 3+(A) Negative INTERFACE SYSTEM NITRITE UA Positive(A) Negative INTERFA CE SYSTEM PROTEIN UA Trace(A) Negative INTERFACE SYSTEM GLUCOSE UA Negative Negative INTERFACE SYSTEM KETONES UA Negative Negative INTERFACE SYSTEM UROBILINOGEN UA <1 <=1 mg/dL INTE RFACE SYSTEM BILIRUBIN UA Negative Negative INTERFA CE SYSTEM BLOOD UA Trace(A) Negative INTERFACE SYSTEM WBC UA >100(H) 0 - 5 /HPF INTERFACE SYSTEM RBC UA 7(H) 0 - 4 /HPF INTERFACE SYSTEM BACTERIA UA 2+(A) None Seen /HPF INTERFACE SYSTEM EPITHELIAL CELLS, URINE 0-2 /HPF INTERFACE SYSTEM 04/01/2006 1:02 PM CDT us Buffy Glil MD URINE ORDERABLES Final Result INTERFACE SYSTEM Refer to clinic/hospital department documented in this encounter Visit Diagnoses Diagnosis Urinary frequency- Primary documented in this encounter Care Teams Software Configuration Analyst Relationship Specialty Start Date End Date Joni Del Castillo MD [address] [place] [address] PCP - General 12/30/00 documented as of this encounter
--- OUTSIDE RECORDS SUMMARY | 2024-09-13 17:38 | XMS_ITS | Encounter Summary ---
Author Organization [employer] Address [address] [place] [address] Care Team Providers Care Medicare Coordinator Name Role Phone Joni Del Castillo MD Primary Care Provider +1- [phone] Encounter Details Date Type Department Care Team (Late st Contact Info) Description 03/04/2004 Outpatient Historical HIS OP NEUROLOGY Buffy Gill MD [address] [facility] [address] [place] [id number] Social History Tobacco Use Types Packs/Day Years Used Date Smoking Tobacco: Never Assessed Comments Unknown Sex and Gender Information Value Date Recorded Sex Assigned at Not on file Legal Sex Female 3:50 AM COLLECTIONS CLERK Gender Identity Not on file Sexual Orientation Not on file documented as of this encounter Plan of Treatment Not on file documented as of this encounter Visit Diagnoses Not on filedocumented in this encounter Care Teams Medicare Coordinator Relationship Specialty Start Date End Date Joni Del Castillo MD [address] [facility] [address] [place] [address] PCP - General 12/30/00 documented as of this encounter
--- OUTSIDE RECORDS SUMMARY | 2024-09-13 17:38 | XMS_ITS | Encounter Summary ---
Author Organization [facility] Address [address] [place] [address] Care Team Providers Care Nougat Cutter Machine Name Role Phone Joni Del Castillo MD Primary Care Provider +1- [phone] Reason for Visit * Reason Comments Medication Refill Encounter Details Date Type Department Care Team (Late st Contact Info) Description 01/10/2018 Refill [facility] Neurology [address] [phone] Natalia Benjamin DO NO ADDRESS ON FILE Social History Tobacco Use Types Packs/Day Years Used Date Smoking Tobacco: Never Smokeless Tobacco: Never Alcohol Use Standard Drinks/Week Comments No 0 (1 standard drink = 0.6 oz pur e alcohol) Comments No Sex and Gender Information Value Date Recorded Sex Assigned at Not on file Legal Sex Female 3:50 AM CORRESPONDENCE REVIEW CLERK Gender Identity Not on file Sexual Orientation Not on file documented as of this encounter Plan of Treatment Not on file documented as of this encounter Visit Diagnoses Not on filedocumented in this encounter Care Teams Nougat Cutter Machine Relationship Specialty Start Date End Date Joni Del Castillo MD [address] [place] [address] PCP - General 12/30/00 documented as of this encounter
--- OUTSIDE RECORDS SUMMARY | 2024-09-13 17:38 | XMS_ITS | Clinical Summary ---
Author Organization 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 of leg ([facility]) 01/11/2018 Closed fracture of multiple ribs of left side Pruritic rash 01/28/2014 Cognitive dysfunction accompanying multiple scle rosis 01/05/2014 Medical History Medical History Date Comments MS (multiple sclerosis) ([facility]) Cognitive dysfunction accompanying multiple scle rosis ([facility]) Social History Tobacco Use Types Packs/Day Years [...] on file Legal Sex Female 11:14 AM FORESTRY AID Gender Identity Not on file Sexual Orientation Not on file Obstetrics History Last Filed Vital Signs Vital Sign Reading Time Taken Comments Blood Pressure 122/80 09/05/2020 2:58 PM FORESTRY AID Pulse 64 09/05/2020 2:58 PM FORESTRY AID Temperature - - Respiratory Rate 16 09/05/2020 2:58 PM FORESTRY AID Oxygen Saturation - - Inhaled Oxygen Concentration - - Weight 70.9 kg (156 lb 3.2 oz) 09/05/2020 2:58 P M FORESTRY AID Height 167.6 cm (5' 6 ) 09/05/2020 2:58 PM FORESTRY AID Body Mass Index 25.21 09/05/2020 2:58 PM FORESTRY AID Plan of Treatment Not on file Insurance [employer] MEDICARE Care Teams Security Incident Handler Relationship Specialty Start Date End Date Joni Osorio MD [address] [facility] [address] [place] [address] PCP - General Emergency Medicine 09/16/17
--- OUTSIDE RECORDS SUMMARY | 2024-09-13 17:38 | XMS_ITS | Encounter Summary ---
Author Organization [employer] Address [address] [place] [address] Care Team Providers Care Leaf Fat Scraper Name Role Phone Joni Del Castillo MD Primary Care Provider +1- [phone] Encounter Details Date Type Department Care Team (Latest Contact Info) Description 05/01/2005 Outpatient Historical HIS OP NEUROLOGY Buffy Gill MD [address] [facility] [address] [place] [phone] MULTIPLE SCLEROSIS (CMS/HCC) (Primary Dx) Social History Tobacco Use Types Packs/Day Years Used Date Smoking Tobacco: Never Assessed Comments Unknown Sex and Gender Information Value Date Recorded Sex Assigned at Not on file Legal Sex Female 3:50 AM CHIEF POWER DISPATCHER Gender Identity Not on file Sexual Orientation Not on file documented as of this encounter Plan of Treatment Not on file documented as of this encounter Visit Diagnoses Diagnosis Multiple sclerosis (CMS/HCC)- Primary Multiple sclerosis documented in this encounter Care Teams Leaf Fat Scraper Relationship Specialty Start Date End Date Joni Del Castillo MD [address] [place] [address] [address] [place] [address] PCP - General 12/30/00 documented as of this encounter
== END 2024-09-13 14:52 | disposition home or self-care (01) ==
LOC: ANHGOSHLAB 14:52
PROVIDERS: PCP Family Medicine; Visit Provider Nurse Practitioner Family
DX: N30.90 Cystitis, unspecified without hematuria (principal)
CPT/HCPCS: 87086; 87186

== ENCOUNTER 2025-01-21 15:00 | Outpatient (CLI) | payer MEDICARE, MEDICAID, SELFPAY | END 2025-01-21 15:01 | disposition home or self-care (01) | LOC: ANHGOSHLAB 15:01 | PROVIDERS: PCP Family Medicine; Visit Provider Family Medicine | DX: N30.00 Acute cystitis without hematuria (principal); N31.8 Other neuromuscular dysfunction of bladder | CPT/HCPCS: 87086 ==

== ENCOUNTER 2025-05-10 08:01 | Outpatient (CLI) | payer MEDICARE, MEDICAID, SELFPAY ==
--- OUTSIDE RECORDS SUMMARY | 2025-05-10 08:13 | XMS_ITS | Encounter Summary ---
Author Organization [employer] Address [address] [place] [address] Care Team Providers Care Director Of Product Management Name Role Phone Joni Del Castillo MD Primary Care Provider +1- [phone] Encounter Details Date Type Department Care Team (Latest Contact Info) Description 12/30/2000 Outpatient Historical HIS OP NEUROLOGY Buffy Gill MD [address] [facility] [address] [place] [phone] Multiple sclerosis (Primary Dx) Social History Tobacco Use Types Packs/Day Years Used Date Smoking Tobacco: Never Assessed Comments Unknown Sex and Gender Information Value Date Recorded Sex Assigned at Not on file Legal Sex Female 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
--- OUTSIDE RECORDS SUMMARY | 2025-05-10 08:13 | XMS_ITS | Encounter Summary ---
Author Organization [employer] Address [address] [place] [address] Care Team Providers Care Dispatcher Refinery Name Role Phone Joni Del Castillo MD Primary Care Provider +1- [phone] Encounter Details Date Type Department Care Team (Late st Contact Info) Description 08/07/1999 Outpatient Historical Division of Neurology [address] [address] Buffy Gill MD [address] [facility] [address] [place] [address] Social History Tobacco Use Types Packs/Day Years Used Date Smoking Tobacco: Never Assessed Comments Unknown Sex and Gender Information Value Date Recorded Sex Assigned at Not on file Legal Sex Female 3:50 AM CROP RANCH HAND Gender Identity Not on file Sexual Orientation Not on file documented as of this encounter Plan of Treatment Not on file documented as of this encounter Visit Diagnoses Not on filedocumented in this encounter Care Teams Dispatcher Refinery Relationship Specialty Start Date End Date Joni Del Castillo MD [address] [facility] [address] [place] [address] PCP - General 12/30/00 documented as of this encounter
--- OUTSIDE RECORDS SUMMARY | 2025-05-10 08:13 | XMS_ITS | Encounter Summary ---
Author Organization [employer] Address [address] [place] [address] Care Team Providers Care Pharmacist Intern Name Role Phone Joni Del Castillo MD Primary Care Provider +1- [phone] Encounter Details Date Type Department Care Team (Late st Contact Info) Description 12/16/2000 Outpatient [facility] Division of Neurology [address] [address] Buffy Gill MD [address] [facility] [address] [place] [address] Social History Tobacco Use Types Packs/Day Years Used Date Smoking Tobacco: Never Assessed Comments Unknown Sex and Gender Information Value Date Recorded Sex Assigned at Not on file Legal Sex Female 3:50 AM VENEREAL DISEASE CONTROL HEAD Gender Identity Not on file Sexual Orientation Not on file documented as of this encounter Plan of Treatment Not on file documented as of this encounter Visit Diagnoses Not on filedocumented in this encounter Care Teams Pharmacist Intern Relationship Specialty Start Date End Date Joni Del Castillo MD [address] [facility] [address] [place] [address] PCP - General 12/30/00 documented as of this encounter
--- OUTSIDE RECORDS SUMMARY | 2025-05-10 08:13 | XMS_ITS | Clinical Summary ---
Author Organization [facility] Address [address] [facility] [place] [address] Care Team Providers Care Waste Machine Operator Name Role Phone Joni Osorio MD Primary Care Provider +1- [phone] Allergies Active Allergy Reactions Criticality Noted Date [...] tablet extended release 12 hrIndications:Mu ltiple sclerosis Take 1 tablet (10 mg total) by mouth daily 90 tablet 1 03/13/2021 Active Active Problems Problem Noted Date Diagnosed Date Multiple sclerosis 01/11/2018 Overview (09/05/2020): MS Medication History: RRMS/SPMS Symptom onset: 1979 Diagnosis: 1982 1. Betaseron: 07/1993-12/1998 2. Copaxone: 01/1999 x one month. Injection reactions. 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 Recurrent major depressive disorder, in full rem ission 01/11/2018 Neurogenic dysfunction of the urinary bladder Monoparesis of leg 01/11/2018 Closed fracture of multiple ribs of left side Pruritic rash 01/28/2014 Cognitive dysfunction accompanying multiple scle rosis 01/05/2014 Medical History Medical History Date Comments MS (multiple sclerosis) Cognitive dysfunction accompanying multiple scle rosis Social History Tobacco Use Types Packs/Day Years [...] on file Legal Sex Female 11:14 AM ATHLETE MARKETING AGENT Gender Identity Not on file Sexual Orientation Not on file Obstetrics History Last Filed Vital Signs Vital Sign Reading Time Taken Comments Blood Pressure 122/80 09/05/2020 2:58 PM ATHLETE MARKETING AGENT Pulse 64 09/05/2020 2:58 PM ATHLETE MARKETING AGENT Temperature - - Respiratory Rate 16 09/05/2020 2:58 PM ATHLETE MARKETING AGENT Oxygen Saturation - - Inhaled Oxygen Concentration - - Weight 70.9 kg (156 lb 3.2 oz) 09/05/2020 2:58 P M ATHLETE MARKETING AGENT Height 167.6 cm (5' 6) 09/05/2020 2:58 PM ATHLETE MARKETING AGENT Body Mass Index 25.21 09/05/2020 2:58 PM ATHLETE MARKETING AGENT Plan of Treatment Not on file Insurance [facility] MEDICARE Care Teams Waste Machine Operator Relationship Specialty Start Date End Date Joni Osorio MD [address] [place] [address] PCP - General Emergency Medicine 09/16/17
--- OUTSIDE RECORDS SUMMARY | 2025-05-10 08:13 | XMS_ITS | Encounter Summary ---
Author Organization [facility] Address [address] [place] [address] Care Team Providers Care Graphic Coordinator Name Role Phone Joni Del Castillo MD Primary Care Provider +1- [phone] Encounter Details Date Type Department Care Team (Latest Contact Info) Description 04/01/2006 Outpatient Historical HIS [facility] Gill, Buffy Chew MD [address] [place] [address] Urinary Frequency (Primary Dx) Social History Tobacco Use Types Packs/Day Years Used Date Smoking Tobacco: Never Assessed Comments Unknown Sex and Gender Information Value Date Recorded Sex Assigned at Not on file Legal Sex Female 3:50 AM PICK UP ATTENDANT Gender Identity Not on file Sexual Orientation [...] SYSTEM 04/01/2006 1:02 PM CDT us Buffy Gill MD URINE ORDERABLES Final Result INTERFACE SYSTEM Refer to clinic/hospital department documented in this encounter Visit Diagnoses Diagnosis Urinary frequency- Primary documented in this encounter Care Teams Graphic Coordinator Relationship Specialty Start Date End Date Joni Del Castillo MD [address] [place] [address] PCP - General 12/30/00 documented as of this encounter
--- OUTSIDE RECORDS SUMMARY | 2025-05-10 08:13 | XMS_ITS | Encounter Summary ---
Author Organization [employer] Address [address] [place] [address] Care Team Providers Care Corn Grower Name Role Phone Joni Del Castillo MD Primary Care Provider +1- [phone] Encounter Details Date Type Department Care Team (Latest Contact Info) Description 05/01/2005 Outpatient Historical HIS OP NEUROLOGY Buffy Gill MD [address] [facility] [address] [place] [phone] MULTIPLE SCLEROSIS (CMS/HCC) (Primary Dx) Social History Tobacco Use Types Packs/Day Years Used Date Smoking Tobacco: Never Assessed Comments Unknown Sex and Gender Information Value Date Recorded Sex Assigned at Not on file Legal Sex Female 3:50 AM CLIENT BUSINESS MANAGER Gender Identity Not on file Sexual Orientation Not on file documented as of this encounter Plan of Treatment Not on file documented as of this encounter Visit Diagnoses Diagnosis Multiple sclerosis- Primary documented in this encounter Care Teams Corn Grower Relationship Specialty Start Date End Date Joni Del Castillo MD [address] [facility] [address] [place] [address] PCP - General 12/30/00 documented as of this encounter
--- OUTSIDE RECORDS SUMMARY | 2025-05-10 08:13 | XMS_ITS | Clinical Summary ---
Author Organization [employer] [facility] Address [address] [place] [address] Phone Care Team Providers Care Computing Tutor Name Role Phone Joni Del Castillo MD Primary Care Provider +1- [phone] Allergies No known active allergies Medications levothyroxine 112 mcg Oral tablet Take 112 mcg by mouth daily shoe maker. Active solifenacin (VESICARE) 5 mg Tablet Take 5 mg by mouth daily. Active citalopram (CELEXA) 20 mg tablet Take 20 mg by mouth daily at bedtime. Active ERGOCALCIFEROL, VITAMIN D2, (VITAMIN D ORAL) Take by mouth. Active dalfampridine (AMPYRA) 10 mg Extended Release 12 hour tabletIndication s:Multiple sclerosis Take 1 Tablet (10 mg) by mouth 2 times daily. 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 Gender Identity Not on file Sexual Orientation Not on file Last Filed Vital Signs Vital Sign Reading Time Taken Comments Blood Pressure 115/58 01/02/2017 1:29 PM CDT Pulse 66 01/02/2017 1:29 PM CDT Temperature - - Respiratory Rate - - Oxygen Saturation - - Inhaled Oxygen Concentration - - Weight 72.1 kg (159 lb) 01/02/2017 1:29 PM CDT Height 167.6 cm (5' 6) 01/02/2017 1:29 PM CDT Body Mass Index 25.66 01/02/2017 1:29 PM CDT Plan of Treatment Health Maintenance Due Date Last Done Comments DTAP/TDAP/TD VACCINES (1 - Tdap) 1974 COLORECTAL SCREENING 2000 Colorectal Cancer Screening 2000 FIT-DNA Q 3 years 2000 FIT/FOBT Q 1 year 2000 Flex Sig/CT Colonography Q 5 years 2000 PNEUMOCOCCAL VACCINE 50+ YEA RS (1 of 1 - PCV) 2005 ZOSTER VACCINE (1 of 2) 2005 RSV VACCINE (60+ or ) (1 - Risk 60-74 years 1-dose series) 2015 BREAST CANCER SCREENING 06/05/2017 06/05/2016, 12/29 OSTEOPOROSIS SCREENING 2020 01/18/2015 INFLUENZA VACCINE (#1) 2025 Insurance MEDICARE PART A AND B Care Teams Computing Tutor Relationship Specialty Start Date End Date Joni Del Castillo MD [address] [place] [address] PCP - General 12/30/00
--- OUTSIDE RECORDS SUMMARY | 2025-05-10 08:13 | XMS_ITS | Encounter Summary ---
Author Organization [employer] Address [address] [place] [address] Care Team Providers Care Press Setup Operator Name Role Phone Joni Del Castillo MD Primary Care Provider +1- [phone] Encounter Details Date Type Department Care Team (Late st Contact Info) Description 08/10/2002 Outpatient [facility] Division of Neurology [address] [address] Buffy Gill MD [address] [facility] [address] [place] [address] Social History Tobacco Use Types Packs/Day Years Used Date Smoking Tobacco: Never Assessed Comments Unknown Sex and Gender Information Value Date Recorded Sex Assigned at Not on file Legal Sex Female 3:50 AM FIBREGLASS GUN HAND Gender Identity Not on file Sexual Orientation Not on file documented as of this encounter Plan of Treatment Not on file documented as of this encounter Visit Diagnoses Not on filedocumented in this encounter Care Teams Press Setup Operator Relationship Specialty Start Date End Date Joni Del Castillo MD [address] [facility] [address] [place] [address] PCP - General 12/30/00 documented as of this encounter
--- OUTSIDE RECORDS SUMMARY | 2025-05-10 08:13 | XMS_ITS | Encounter Summary ---
Author Organization [employer] Address [address] [place] [address] Care Team Providers Care Body Component Engineer Name Role Phone Joni Del Castillo MD Primary Care Provider +1- [phone] Encounter Details Date Type Department Care Team (Late st Contact Info) Description 01/09/2004 Outpatient [facility] Division of Neurology [address] [address] Buffy Gill MD [address] [facility] [address] [place] [address] Social History Tobacco Use Types Packs/Day Years Used Date Smoking Tobacco: Never Assessed Comments Unknown Sex and Gender Information Value Date Recorded Sex Assigned at Not on file Legal Sex Female 3:50 AM BOOKMOBILE DRIVER Gender Identity Not on file Sexual Orientation Not on file documented as of this encounter Plan of Treatment Not on file documented as of this encounter Visit Diagnoses Not on filedocumented in this encounter Care Teams Body Component Engineer Relationship Specialty Start Date End Date Joni Del Castillo MD [facility] [address] [place] [address] PCP - General 12/30/00 documented as of this encounter
--- OUTSIDE RECORDS SUMMARY | 2025-05-10 08:13 | XMS_ITS | Encounter Summary ---
Author Organization [employer] Address [address] [place] [address] Care Team Providers Care Sales Assoc Name Role Phone Joni Del Castillo MD Primary Care Provider +1- [phone] Encounter Details Date Type Department Care Team (Late st Contact Info) Description 03/04/2001 Outpatient Historical HIS OP NEUROLOGY Buffy Gill MD [address] [facility] [address] [place] [phone] Social History Tobacco Use Types Packs/Day Years Used Date Smoking Tobacco: Never Assessed Comments Unknown Sex and Gender Information Value Date Recorded Sex Assigned at Not on file Legal Sex Female 3:50 AM STRATEGY ANALYST Gender Identity Not on file Sexual Orientation Not on file documented as of this encounter Plan of Treatment Not on file documented as of this encounter Visit Diagnoses Not on filedocumented in this encounter Care Teams Sales Assoc Relationship Specialty Start Date End Date Joni Del Castillo MD [address] [facility] [address] [place] [address] PCP - General 12/30/00 documented as of this encounter
--- OUTSIDE RECORDS SUMMARY | 2025-05-10 08:13 | XMS_ITS | Encounter Summary ---
Author Organization [employer] Address [address] [place] [address] Care Team Providers Care Regional Transfer Liaison Name Role Phone Joni Del Castillo MD Primary Care Provider +1- [phone] Encounter Details Date Type Department Care Team (Latest Contact Info) Description 01/31/2001 Outpatient Historical [facility] Buffy Gill MD [address] [facility] [address] [place] [id number] Multiple sclerosis (Primary Dx) Social History Tobacco Use Types Packs/Day Years Used Date Smoking Tobacco: Never Assessed Comments Unknown Sex and Gender Information Value Date Recorded Sex Assigned at Not on file Legal Sex Female 3:50 AM LIMOUSINE DRIVER Gender Identity Not on file Sexual Orientation Not on file documented as of this encounter Plan of Treatment Not on file documented as of this encounter Visit Diagnoses Diagnosis Multiple sclerosis- Primary documented in this encounter Care Teams Regional Transfer Liaison Relationship Specialty Start Date End Date Joni Del Castillo MD [address] [facility] [address] [place] [address] PCP - General 12/30/00 documented as of this encounter
--- OUTSIDE RECORDS SUMMARY | 2025-05-10 08:13 | XMS_ITS | Encounter Summary ---
Author Organization [employer] Address [address] [place] [address] Care Team Providers Care Marketing Project Coordinator Name Role Phone Joni Del Castillo MD Primary Care Provider +1- [phone] Encounter Details Date Type Department Care Team (Latest Contact Info) Description 02/01/2004 Outpatient Historical [facility] Buffy Gill MD [address] [facility] [address] [place] [id number] MULTIPLE SCLEROSIS (CMS/HCC) (Primary Dx) Social History Tobacco Use Types Packs/Day Years Used Date Smoking Tobacco: Never Assessed Comments Unknown Sex and Gender Information Value Date Recorded Sex Assigned at Not on file Legal Sex Female 3:50 AM MANAGER PRIVATE Gender Identity Not on file Sexual Orientation Not on file documented as of this encounter Plan of Treatment Not on file documented as of this encounter Visit Diagnoses Diagnosis Multiple sclerosis- Primary documented in this encounter Care Teams Marketing Project Coordinator Relationship Specialty Start Date End Date Joni Del Castillo MD [address] [facility] [address] [place] [address] PCP - General 12/30/00 documented as of this encounter
--- OUTSIDE RECORDS SUMMARY | 2025-05-10 08:13 | XMS_ITS | Encounter Summary ---
Author Organization [employer] Address [address] [place] [address] Care Team Providers Care Anode Builder Name Role Phone Joni Del Castillo MD Primary Care Provider +1- [phone] Encounter Details Date Type Department Care Team (Late st Contact Info) Description 04/01/2006 Outpatient [facility] Division of Neurology [address] [address] Buffy Gill MD [address] [facility] [address] [place] [address] Social History Tobacco Use Types Packs/Day Years Used Date Smoking Tobacco: Never Assessed Comments Unknown Sex and Gender Information Value Date Recorded Sex Assigned at Not on file 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
--- OUTSIDE RECORDS SUMMARY | 2025-05-10 08:13 | XMS_ITS | Encounter Summary ---
Author Organization [facility] Address [address] [place] [address] Care Team Providers Care Network Account Manager Name Role Phone Joni Del Castillo MD Primary Care Provider +1- [phone] Encounter Details Date Type Department Care Team (Late st Contact Info) Description 04/25/2005 Outpatient [place] [id number] [facility] 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
--- OUTSIDE RECORDS SUMMARY | 2025-05-10 08:13 | XMS_ITS | Encounter Summary ---
Author Organization [employer] Address 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
--- OUTSIDE RECORDS SUMMARY | 2025-05-10 08:13 | XMS_ITS | Encounter Summary ---
Author Organization [employer] Address 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
--- OUTSIDE RECORDS SUMMARY | 2025-05-10 08:13 | XMS_ITS | Encounter Summary ---
Author Organization [employer] Address 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
--- OUTSIDE RECORDS SUMMARY | 2025-05-10 08:13 | XMS_ITS | Encounter Summary ---
Author Organization [facility] Address [address] [place] [address] Care Team Providers Care Construction Operations Manager Name Role Phone Joni Del Castillo MD Primary Care Provider +1- [phone] Reason for Visit * Reason Comments Medication Refill Encounter Details Date Type Department Care Team (Late st Contact Info) Description 01/10/2018 Refill [facility] Neurology [address] [phone] Natalia Benjamin DO NO ADDRESS ON FILE Social History Tobacco Use Types Packs/Day Years Used Date Smoking Tobacco: Never Smokeless Tobacco: Never Alcohol Use Standard Drinks/Week Comments No 0 (1 standard drink = 0.6 oz pur e alcohol) Comments No Sex and Gender Information Value Date Recorded Sex Assigned at Not on file 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
[2025-05-10 13:07] LABS: Alanine Aminotransferase 22 U/L (6-35); Albumin Level 4.3 g/dL (3.5-5.1); Alkaline Phosphatase 55 U/L (38-126); Anion Gap 9 mmol/L (4-12); Aspartate Amino Transferase 48 U/L (14-36); Bilirubin,Total 0.7 mg/dL (0.2-1.3); Blood Urea Nitrogen 17 mg/dL (7-17); Calcium 9.0 mg/dL (8.4-10.2); Carbon Dioxide 26 mmol/L (22-30); Chloride 106 mmol/L (98-107); Estimated Glomerular Filt Rate > 60; Glucose 84 mg/dL (65-110); Potassium 3.8 mmol/L (3.4-5.0); Sodium 141 mmol/L (137-145); Total Protein 7.2 g/dL (6.3-8.2)
[2025-05-10 13:15] LABS: Add Urine Microscopic? YES; Appearance Urine Turbid (Clear); Glucose Urine UA Negative (Negative); Leukocyte Esterase Ur 2+ LEU/UL (Negative); Need Manual Microscopic Reviewed; Nitrate Urine Positive (Negative); Non Pathogenic Casts 0-2; Specific Grav Ur 1.025 (1.001-1.035)
[2025-05-10 13:43] LABS: Thyroid Stimulating Hormone 1.030 uIU/mL (0.465-4.680)
== END 2025-05-10 08:02 | disposition home or self-care (01) ==
LOC: ANHGOSHLAB 08:02
PROVIDERS: PCP Family Medicine; Visit Provider Nurse Practitioner Family
DX: E03.9 Hypothyroidism, unspecified (principal); E55.9 Vitamin D deficiency, unspecified; D64.9 Anemia, unspecified; R82.90 Unspecified abnormal findings in urine
CPT/HCPCS: 36415; 80053; 81001; 82306; 84443